=== PATIENT | female | born 1935 | race Caucasian/White ===

== ENCOUNTER → 2023-05-25 10:28 | Outpatient (REF) | payer MEDICARE, BC, SELFPAY ==
[2023-05-25 11:53] LABS: % Basophils 0.9 % (0-2); % Eosinophils 0.5 % (0-6); % Immature Granulocytes 0.4 % (0-0.5); % Lymphocytes 9.1 % (20.5-51.1); % Monocytes 13.3 % (1.7-9.3); % Neutrophils 75.8 % (42.2-75.2); Absolute Basophils 0.1 10^3/uL (0-0.2); Absolute Eosinophils 0.1 10^3/uL (0-0.7); Absolute Lymphocytes 0.9 10^3/uL (1.2-3.4); Absolute Monocytes 1.4 10^3/uL (0.1-0.6); Absolute Neutrophils 7.9 10^3/uL (1.4-6.5); Hematocrit 29.2 % (37.0-47.0); Hemoglobin 9.8 g/dL (12.0-16.0); Mean Corp Hgb Conc. 33.6 g/dL (33.0-37.0); Mean Corpuscular Hgb 29.6 pg (27.0-31.0); Mean Corpuscular Volume 88.2 fL (81.0-99.0); Mean Platelet Volume 9.7 fL (7.4-10.4); Nucleated Red Blood Cells % 0 %; Platelet Count 564 10^3/uL (130-400); Red Blood Cell Count 3.31 10^6/uL (4.20-5.40); Red Cell Dist. Width 16.3 % (11.5-14.5); Reticulocyte Count 1.8 % (0.4-2.8); White Blood Cell Count 10.4 10^3/uL (4.8-10.8)
[2023-05-25 12:30] LABS: ALT (SGPT) 22 U/L (0-35); AST (SGOT) 36 U/L (14-36); Alkaline Phosphatase 146 U/L (38-126); Blood Urea Nitrogen 21 mg/dl (7-17); Calcium 9.3 mg/dl (8.4-10.2); Carbon Dioxide 30 mmol/L (22-30); Chloride 95 mmol/L (98-107); Glucose 76 mg/dl (70-99); Iron 30 ug/dl (37-170); Potassium 5.1 mmol/L (3.5-5.1); Sodium 131 mmol/L (135-145); Total Bilirubin 0.3 mg/dl (0.2-1.3); Total Protein 7.5 g/dl (6.3-8.2); eGFR > 60.00
[2023-05-25 12:39] LABS: Percent Saturation 12 % (20-50); Total Iron Binding Capacity 232 ug/dl (265-497)
[2023-05-27 21:56] LABS: Albumin 2.36 g/dL (3.75-5.01); Alpha 2 Globulin 1.21 g/dL (0.48-1.05); Free Kappa Light Chains,Quant 118.74 mg/L (3.30-19.40); Free Lambda Light Chains,Quant 104.11 mg/L (5.71-26.30); IgA 902 mg/dL (68-408); IgG 1939 mg/dL (768-1632); IgM 83 mg/dL (35-263); Immunofixation Electrophoresis IFE Done; Kappa/Lambda Fr Light Ratio 1.14 (0.26-1.65); Total Protein-Electrophoresis 7.6 g/dL (6.3-8.2)
== END ==
LOC: HWLAB 10:28
PROVIDERS: ATTENDING PHYSICIAN Internal Medicine Hematology & Oncology; FAMILY PHYSICIAN Internal Medicine
DX: D63.8 Anemia in other chronic diseases classified elsewhere (principal); D64.9 Anemia, unspecified; Z87.718 Personal history of other specified (corrected) congenital malformations of genitourinary system; D47.2 Monoclonal gammopathy
CPT/HCPCS: 36415; 80053; 82728; 82784; 83521; 83540; 83550; 84155; 84165; 85025; 85045; 86334

== ENCOUNTER → 2023-06-05 11:47 | Outpatient (REF) | payer MEDICARE, BC, SELFPAY | LOC: HWRAD 11:47 | PROVIDERS: ATTENDING PHYSICIAN Internal Medicine Critical Care Medicine; FAMILY PHYSICIAN Internal Medicine | DX: R93.89 Abnormal findings on diagnostic imaging of other specified body structures (principal) | CPT/HCPCS: 71046 ==

== ENCOUNTER → 2023-06-12 11:32 | Outpatient (REF) | payer MEDICARE, BC, SELFPAY ==
[2023-06-12 16:04] LABS: % Basophils 0.9 % (0-2); % Eosinophils 0.3 % (0-6); % Immature Granulocytes 0.2 % (0-0.5); % Lymphocytes 11.4 % (20.5-51.1); % Monocytes 11.6 % (1.7-9.3); % Neutrophils 75.6 % (42.2-75.2); Absolute Basophils 0.1 10^3/uL (0-0.2); Absolute Neutrophils 6.7 10^3/uL (1.4-6.5); Hematocrit 29.4 % (37.0-47.0); Hemoglobin 9.5 g/dL (12.0-16.0); Mean Corp Hgb Conc. 32.3 g/dL (33.0-37.0); Mean Corpuscular Hgb 29.4 pg (27.0-31.0); Mean Platelet Volume 9.7 fL (7.4-10.4); Nucleated Red Blood Cells % 0 %; Platelet Count 330 10^3/uL (130-400); Red Blood Cell Count 3.23 10^6/uL (4.20-5.40); Red Cell Dist. Width 15.9 % (11.5-14.5); White Blood Cell Count 8.9 10^3/uL (4.8-10.8)
== END ==
LOC: HWLAB 11:32
PROVIDERS: ATTENDING PHYSICIAN Internal Medicine
DX: Z01.818 Encounter for other preprocedural examination (principal); D64.9 Anemia, unspecified
CPT/HCPCS: 36415; 85025

== ENCOUNTER 2023-06-24 17:42 | Inpatient (IN) | payer MEDICARE, BC, SELFPAY ==
[2023-06-24 13:30] VITALS: BP 150/62
[2023-06-24 13:51] LABS: % Basophils 0.8 % (0-2); % Eosinophils 0.7 % (0-6); % Immature Granulocytes 0.3 % (0-0.5); % Lymphocytes 14.7 % (20.5-51.1); % Monocytes 10.1 % (1.7-9.3); % Neutrophils 73.4 % (42.2-75.2); Absolute Basophils 0.1 10^3/uL (0-0.2); Absolute Eosinophils 0.1 10^3/uL (0-0.7); Absolute Lymphocytes 1.5 10^3/uL (1.2-3.4); Absolute Neutrophils 7.4 10^3/uL (1.4-6.5); Hematocrit 29.7 % (37.0-47.0); Hemoglobin 10.3 g/dL (12.0-16.0); Mean Corp Hgb Conc. 34.7 g/dL (33.0-37.0); Mean Corpuscular Hgb 29.9 pg (27.0-31.0); Mean Corpuscular Volume 86.1 fL (81.0-99.0); Mean Platelet Volume 9.9 fL (7.4-10.4); Nucleated Red Blood Cells % 0 %; Platelet Count 293 10^3/uL (130-400); Red Blood Cell Count 3.45 10^6/uL (4.20-5.40); Red Cell Dist. Width 15.4 % (11.5-14.5); White Blood Cell Count 10.1 10^3/uL (4.8-10.8)
[2023-06-24 14:03] LABS: ALT (SGPT) 23 U/L (0-35); AST (SGOT) 31 U/L (14-36); Alkaline Phosphatase 174 U/L (38-126); Blood Urea Nitrogen 37 mg/dl (7-17); Calcium 9.7 mg/dl (8.4-10.2); Carbon Dioxide 32 mmol/L (22-30); Chloride 96 mmol/L (98-107); Glucose 81 mg/dl (70-99); Potassium 4.6 mmol/L (3.5-5.1); Sodium 130 mmol/L (135-145); Total Bilirubin 0.3 mg/dl (0.2-1.3); eGFR 54.53
--- NOTE | 2023-06-24 14:27 | ED.GENMED ---
History of Present Illness
General
Chief Complaint: Breathing Problem
Time Seen by Provider: 06/24/23 14:27
Travel History
Have you had any contact with someone who has COVID-19?: No
Do you have any symptoms of coronavirus? Fever > 100 degrees, chills, cough, shortness of breath, sore throat, loss of taste or smell, muscle aches, or headache?: No
History of Present Illness
History of Present Illness:
HPI: The patient felt lightheaded earlier. She recently finished doxycycline for suspected pneumonia ordered by her poker dealer. She had some vague shortness of breath and a general worsening feeling compared to how she felt when she was seen by
her poker dealer with the abnormal x-ray earlier in the month. Overall she has worsened.
EXAM:
GENERAL: Well appearing in no distress
HEENT: Moist oral mucosa
CARDIOVASCULAR: No murmurs, normal heart rate, regular rhythm, No chest wall tenderness
PULMONARY: No respiratory distress, breath sounds are clear on the right but decreased on the left
ABDOMEN: Soft with no peritoneal signs, no tenderness
NEUROLOGIC: Excellent strength all extremities, no coordination deficits
PSYCHIATRIC: Appropriate mental status, normal insight and judgement
EXTREMITIES: Nontender, no edema, moves all extremities equally
SKIN: No rash, no lesions
TIME OF INITIAL ENCOUNTER:
NUMBER AND COMPLEXITY OF PROBLEMS ADDRESSED AT THE ENCOUNTER
� Chronic conditions affecting care: Chronic bronchitis, PE in the 1960s, high blood pressure, has had pneumothorax in 2021, anxiety
� Acute Exacerbation and/or Progression of Chronic Illness: Chronic left upper lobe atelectasis
� Differential Diagnosis includes: Ongoing atelectasis, pneumonia, viral syndrome
AMOUNT AND/OR COMPLEXITY OF DATA TO BE REVIEWED AND ANALYZED
� I performed an independent evaluation of and my interpretation is:
EKG:
CT:
X-rays: Chest x-ray again shows left sided opacification
Laboratory Studies: White count is normal, chemistries relatively unremarkable
Other:
� Review of other/old records: I reviewed old records including old CT
� Clinical information was obtained by an independent historian:
� Prescriptions/Medications Considered but not given:
� Further testing considered but not performed:
RISK OF COMPLICATIONS AND/OR MORBIDITY OR MORTALITY OF PATIENT MANAGEMENT
� Social determinants of health affecting care:
� Discussion with other providers: Notify Dr. Abraham of the patient's workup at 4:27 PM�he recommends admission for IV antibiotics and likely repeat bronc. Hospitalist for admission at 4:35 PM
� Escalation of care including admission/observation vs risk of discharge considered: The patient's room air sat is 98%. She is well-appearing. I notified Dr. Abraham of the patient's unchanged chest x-ray.
Past History
Past History
ED Past Medical History: HTN, Psychiatric (Anxiety, ), Other (Bronchitis, :Left upper Pneumothorax, Diverticulitis, ) and Other (Chronic sinusitis, chronic cough, lung disease)
ED Past Surgical History: Cholecystectomy, ( X 2), Gynecological and Other (Dental implants, Cataracts, Myringotomy tubes)
Social History
Tobacco: Non-smoker
Alcohol: Occasional
Drug: None
Personal:
Living: alone
Employment: Not employed
Family History
Family History: Other
Phy Exam
Physical Exam
Physical Exam:
See HPI
Scores
Heart Failure Risk
Heart Failure Risk Score: Not Applicable
Course
Orders/Labs/Results
Orders:
Orders
06/24/23 13:40
CMP [Comprehensive Metabolic Panel] Urgent
06/24/23 13:48
Complete Blood Count/With Diff Urgent
06/24/23 14:28
CR Chest - 2 Views Urgent
Comment:
Reason For Exam: sob
06/24/23 16:36
Cefepime HCl [Maxipime] 1,000 mg IV NOW STA
06/24/23 18:00
VANCOMYCIN Pharmacy to Dose [VANCOCIN Pharmacy to Dose] 1 each Pharmacy To Prepare [Call Pharmacy To Prepare] 0 ml IV PER PROTOCOL
Abnormal Lab Results
06/24/23 06/24/23
13:40 13:48
RBC 3.45 L 10^6/uL
(4.20-5.40)
Hgb 10.3 L g/dL
(12.0-16.0)
Hct 29.7 L %
(37.0-47.0)
RDW 15.4 H %
(11.5-14.5)
Absolute Neuts (auto) 7.4 H 10^3/uL
(1.4-6.5)
Absolute Monos (auto) 1.0 H 10^3/uL
(0.1-0.6)
Lymphocytes % 14.7 L %
(20.5-51.1)
Monocytes % 10.1 H %
(1.7-9.3)
Sodium 130 L mmol/L
(135-145)
Chloride 96 L mmol/L
(98-107)
Carbon Dioxide 32 H mmol/L
(22-30)
BUN 37 H mg/dl
(7-17)
Alkaline Phosphatase 174 H U/L
(38-126)
Albumin 3.0 L g/dl
(3.5-5.0)
06/24/23 13:48
06/24/23 13:40
Vital Signs
Initial and Last Documented VS:
Initial Vital Signs
Temp Pulse Resp BP Pulse Ox
98.2 F 62 18 150/62 98
06/24/23 13:30 06/24/23 13:30 06/24/23 13:30 06/24/23 13:30 06/24/23 13:30
Last Documented Vital Signs
Temp Pulse Resp BP Pulse Ox
98.2 F 60 18 143/62 98
06/24/23 13:30 06/24/23 15:00 06/24/23 15:00 06/24/23 15:00 06/24/23 15:15
*Critical Care Note
Total Time (30-74mins, 75-104mins- exclusive of procedures): Not Applicable
ED Attending Note
-
Portions of this chart may have been created with voice recognition software.� Occasional wrong word or��sound alike� substitutions may have occurred due to the inherent limitations of voice recognition software.
Discharge Plan
Departure
Patient Disposition: Admit
Date of Disposition: 06/24/23
Time of Disposition: 16:36
Presentation/result/management discussed w/ accepting MD/DO: Hospitalist
Discharge Problem:
Pneumonia
Prescriptions:
No Action
nadolol 40 MG tablet
40 mg PO DAILY
losartan 50 MG tablet
50 mg PO BID
hydralazine 10 MG tablet
20 mg PO BID
PreserVision AREDS-2 250-90-40-1 mg Capsule
1 tab PO BID
ascorbic acid (vitamin C) [Vitamin C] 500 MG tablet
500 mg PO DAILY
paroxetine HCl [Paxil] 20 mg Tablet
20 mg PO DAILY@1300
ipratropium-albuterol 0.5 mg-3 mg(2.5 mg base)/3 mL Solution For Nebulization
3 ml INHALATION R BID
sodium chloride 3 % solution for nebulization
2 ml INHALATION R BID
acetaminophen 325 mg Tablet
650 mg PO Q6H PRN (Reason: mild pain/temp<100)
magnesium hydroxide [Milk of Magnesia] 400 mg/5 mL Suspension
30 ml PO HS PRN (Reason: if no bm x 2 days)
calcium carbonate [Oyster Shell Calcium] 500 mg calcium (1,250 mg) Tablet
500 mg PO DAILY
carboxymethylcellulose sodium [Refresh Tears] 0.5 % Drops
1 drp BOTH EYES QID
bisacodyl [Dulcolax (bisacodyl)] 10 mg Suppository
10 mg [place] DAILY PRN (Reason: if no bm x 3 days)
Fleet Enema 19-7 gram/118 mL Enema
118 ml [place] DAILY PRN (Reason: if no bm x 4 days)
sodium chloride [NebuSal] 3 % Solution For Nebulization
1 vial inhalation R Q24 Qty: 0 0RF
budesonide 0.5 mg/2 mL Suspension For Nebulization
0.5 mg inhalation R BID Qty: 0 0RF
Referrals:
Dotty Astorga MD [Family Provider] -
Interventions
Interventions:
*Risk Screen - Suicide Last Done: 06/24/23 14:30
*General Assessment Last Done: 06/24/23 14:30
*Neglect/Abuse Screening Last Done: 06/24/23 14:30
ED- Fall Risk Assessment Last Done: 06/24/23 15:16
*ED COVID-19 Vaccine History Last Done: 06/24/23 13:30
ED- Pulmonary Assessment Last Done: 06/24/23 15:15
Discharge Date and Time
Print Language: ITALIAN
[2023-06-24 14:28] VITALS: BP 137/63
[2023-06-24 15:00] VITALS: BP 143/62
--- NOTE | 2023-06-24 16:54 | HPS.HSE ---
Family Physician
-
Family Physician: Dotty Astorga
Chief Complaint
-
Shortness of breath, generalized weakness, lightheadedness
History of Present Illness
88-year-old female complaining of lightheadedness, shortness of breath and generalized weakness. She follows with outpatient pulmonology Dr. Mackay She was placed on oral doxycycline 06/11-06/21 for opacification of the left hemithorax. According
to pulmonary she has failed outpatient airway clearance after a subdural hematoma March 28, 2022. She is currently on a regular diet per her daughter. She has poor cough response. She uses a smart vest on her chest for PT daily. She has a
chronic nonproductive cough. She denies headache, fever, chills, sore throat, chest pain, abdominal pain, nausea, vomiting, diarrhea, urinary symptoms. She has a coming eye surgery this week at [facility] for cryotherapy and map biopsy for concern
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 She has chronic right eyelid droop with chronic impaired vision since January 2023.
She has PMH moderate obstructive lung disease, left upper lobe atelectasis, mild, pulmonary HTN,, HTN, sepsis secondary pneumonia, MSSA per bronchoscopy 05/23/2021 subdural hematoma March 29, 2023, falls, anxiety, diverticulitis, thyroid mass.
Medical History
Past Medical History
Past Medical History: Reports Other
Additional Past Medical History:
moderate obstructive lung disease
left upper lobe atelectasis
mild pulmonary HTN
Chronic right eyelid droop with vision impairment since January 2023
HTN
sepsis secondary pneumonia
MSSA per bronchoscopy 05/23/2021
subdural hematoma March 29, 2023
falls
anxiety
diverticulitis
thyroid mass.
Past Surgical History: Reports Other
Additional Past Surgical History:
MSSA per bronchoscopy 05/23/2021
Cholecystectomy
section x 2
Dental implants
Cataract extraction
Myringotomy tube
Social History
Tobacco: Non-smoker
Alcohol: None
Drug: None
Personal:
Living: Alone
Employment: Retired
Family History
Family History: Other (Mother ruptured thoracic aneurysm, father colon cancer/history COPD)
Allergies / Home Medications
Allergies reflects when Allergies were last updated in [employer].
Home Medications with original date entered in [employer]
Allergy/Medication List:
Allergies
Allergy/AdvReac Type Severity Reaction Status Date / Time
codeine Allergy Unknown Verified 06/24/23 13:33
Penicillins Allergy Rash Verified 06/24/23 13:33
Home Medications
hydralazine 10 mg tablet 20 mg PO BID Blood pressure 05/23/21
losartan 50 mg tablet 50 mg PO BID Blood pressure 05/23/21
nadolol 40 mg tablet 40 mg PO DAILY Blood pressure 05/23/21
vit C 250 mg-vit E 90 mg-zinc 40 mg-copper 1 [id number] capsule (PreserVision AREDS-2) 1 tab PO BID Supplement 05/23/21
ipratropium 0.5 mg-albuterol 3 mg (2.5 mg base)/3 mL nebulization soln 3 ml inhalation R BID Lung/breathing issues 07/14/22
paroxetine HCl 20 mg tablet (Paxil) 20 mg PO DAILY@1300 Mental Health 07/14/22
carboxymethylcellulose sodium 0.5 % eye drops (Refresh Tears) 1 drp BOTH EYES QID 07/16/22
budesonide 0.5 mg/2 mL suspension for nebulization 0.5 mg (2 mL) inhalation R BID #0 mL 07/21/22
Budesonide 0.6 mg intranasal DAILY 06/24/23
furosemide 20 mg tablet 20 mg PO Q48H@0800 06/24/23
vancomycin 1 drp RIGHT EYE QID 06/24/23
vancomycin 160 mg intranasal DAILY 06/24/23
Review of Systems
-
History Source: Patient and Family (Daughter at bedside)
A 12 point ROS was completed and negative except as noted: Yes
Constitutional: Denies Fever or Fatigue
EENT: Denies Sore Throat or Runny Nose
Respiratory: Reports Cough (Chronic nonproductive cough) and Trouble Breathing (Chronic shortness of breath)
Cardiac: Denies Chest Pain, Diaphoresis, Palpitations or Syncope
Abdomen/GI: Denies Abdominal Pain, Nausea, Vomiting, Diarrhea or Constipated
: Denies Dysuria, Frequency, Flank Pain, Incontinence or Difficulty Voiding
Musculoskeletal: Denies Joint Pain or Edema
Skin: Denies Itching or Rash
Neurological: Reports Weakness (Generalized); Denies Dizzy or Headache
Endocrine: Reports No Symptoms
Hematologic/Lymphatic: Reports No Symptoms
Psych: Reports Calm
Physical Exam
Vital Signs
Vital Signs
Temp Pulse Resp BP Pulse Ox
98.2 F 60 18 143/62 98
06/24/23 13:30 06/24/23 15:00 06/24/23 15:00 06/24/23 15:00 06/24/23 15:15
Physical Exam
General: Comfortable and Conversant; No Fever, Chills or Slurred Speech
HEENT: NormoCephalic, Anicteric, PERRLA and Other (Chronic upper right eyelid ptosis with chronic vision impairment since January 2023)
Respiratory: Other (Left lung hyperresonant lung sounds); No Wheezes, Rales or Rhonchi
Cardiac: S1/S2 and Regular Rhythm; No Murmur, Rub, Gallop or Peripheral Edema
Breast: Deferred by me
GI: Soft, Non Tender, Non Distended, Normal Bowel Sounds and No Hepatosplenomegaly
Rectal: Deferred by Provider
Genito-urinary: Deferred by me
Musculoskeletal: No Clubbing, No Cyanosis and No Edema
Skin: Warm; No Rash or Jaundice
Neuro: AO x 3, No Motor Deficits, Nonfocal/grossly intact and Other (Chronic right upper eyelid droop); No Slurred Speech, Facial Droop or Tremors
Psych: Calm
Laboratory Results
-
06/24/23 13:48
06/24/23 13:40
Laboratory Results
Total Bilirubin 0.3 mg/dl (0.2-1.3) 06/24/23 13:40
AST 31 U/L (14-36) 06/24/23 13:40
ALT 23 U/L (0-35) 06/24/23 13:40
Alkaline Phosphatase 174 U/L (38-126) H 06/24/23 13:40
Impression/Plan
-
Impression/plan:
Admit to [facility]
#Acute on chronic left-sided PNA with generalized weakness
#Chronic moderate obstructive lung disease/chronic left upper lobe atelectasis
#Hx MSSA bronch 05/29/2021
Started doxycycline 06/05/2023
98% RA
-Consult Pulmonary
-IV vancomycin, cefepime
-Possible bronchoscopy per pulmonary
-Continue albuterol nebs twice daily, budesonide nebs
-Continue patient's smart vest chest PT
-Follow CBC, CMP
CXR: Stable complete left hemithorax opacification with volume loss and leftward mediastinal shift
#Chronic mild pulmonary HTN
#Chronic stage II diastolic dysfunction
-I/O, daily weights
Follows at [facility] cardiology
-Continue Lasix 20 mg p.o. every 48 H
2D echo 03/07/2021: EF 60 to 65%, mild LVH, no wall abnormalities, stage II diastolic dysfunction, moderate MR, trace aortic insufficiency, moderate TR, pulm pressure 41 mmHg
#HTN�benign
-Continue hydralazine 20 mg p.o. twice daily, losartan 50 mg p.o. twice daily, nadolol 40 mg daily
# Chronic hyponatremia
NA 130, follow BMP
#Chronic anemia normocytic
Hgb 10.3 appears baseline
#History falls
#Subdural hematoma March 29, 2023
-PT/OT/case management consult
#Anxiety
Continue Paxil 20 mg daily
Other PMH:
Hx sepsis secondary to pneumonia
Hx diverticulitis
Hx thyroid mass
DVT prophylaxis
Subcu Lovenox
DNR
[2023-06-24 18:04] VITALS: BP 134/63
[2023-06-24] MEDS: MAXIPIME 1000 MG IV (18:09)
[2023-06-24 19:37] VITALS: BP 160/70; BMI 22.3
[2023-06-24] MEDS: VANCOCIN 300 ML IV (20:20)
[2023-06-24] MEDS: VANCOCIN 300 MG IV (20:20)
[2023-06-24] MEDS: DUONEB 3 ML INH (20:21)
[2023-06-24] MEDS: PULMICORT 0.5 MG INH (20:21)
[2023-06-24] MEDS: APRESOLINE 20 MG PO (20:23)
[2023-06-24] MEDS: COZAAR 50 MG PO (20:24)
[2023-06-24] MEDS: OCUVITE SOFTGEL 1 CAP PO (20:24)
[2023-06-24] MEDS: LOVENOX SC (20:29)
--- NOTE | 2023-06-24 20:56 | PHA.VAN.IN ---
Assessment
- Assessment
Renal Function: Appears elevated from baseline (BASELINE SCR ~0.8)
Concomitant Antimicrobials: CEFEPIME
Plan
- Plan
Initial / Loading Dose: VANCO 1500MG X1
Monitoring: RANDOM 06/24 @0600
MRSA Screen: Ordered per protocol
Pharmacokinetics Vancomycin I
- -
Patient Age: 88
Patient Sex: Female
Vancomycin Day #: 1
Indication: PULM
Requesting Provider: ISAIAH MARTIN
Pertinent Antimicrobial Allergies:
PENICILLIN (RASH, TOLERATED CEFTRIAXONE 07/2022, CEFEPIME 06/2023
Height / Weight:
Height 5 ft 4 in
Actual Weight 58.967 kg
Pertinent Past Medical History: COPD, PULM HTN
- Vital Signs / Lab Results
Temp Pulse Resp BP Pulse Ox
97.4 F 70 18 140/60 93
06/24/23 19:37 06/24/23 20:23 06/24/23 19:37 06/24/23 20:23 06/24/23 19:37
Lab Results - Hematology
06/24/23
13:48
WBC 10.1
Lab Results - Chemistry
06/24/23
13:40
BUN 37 H
Creatinine 1.0
Albumin 3.0 L
[2023-06-24] MEDS: SODIUM CHLORIDE 3% FOR INHALATION 1 VIAL INH (21:00)
[2023-06-24] MEDS: LOVENOX 40 MG SC (21:05)
--- NOTE | 2023-06-24 22:38 | W.PN.UPDATE ---
Update Note
Progress Note Update
This note serves as an addendum to the H&P by MAKI Harris on June 24, 2023.
88-year-old female with past medical history of she has chronic right eyelid droop with chronic impaired vision since January 2023, moderate obstructive lung disease, left upper lobe atelectasis (follows outpatient with Dr. Abraham), mild,
pulmonary HTN, HTN, sepsis secondary pneumonia, MSSA per bronchoscopy 05/23/2021 subdural hematoma March 29, 2023, falls, anxiety, diverticulitis, thyroid mass, presented complaining of lightheadedness, shortness of breath and generalized weakness.
She was placed on oral doxycycline 06/12/23-06/22/23 for opacification of the left hemithorax. According to pulmonary, patient has failed outpatient airway clearance after a subdural hematoma March 28, 2022. She is currently on a regular diet per
her daughter. She has poor cough response. She uses a smart vest on her chest for PT daily. She has a chronic nonproductive cough. She has a coming eye surgery this week at [facility] eye for cryotherapy and map biopsy for concern of squamous cell in
her right eye.
Vital Signs -- stable, saturating well on room air
Physical Exam
General: Not in acute distress
HEENT: Normocephalic, Chronic upper right eyelid ptosis with chronic vision impairment since January 2023
Respiratory: Decreased breath sounds on the left
Cardiac: S1/S2 and Regular Rhythm
GI: Soft, Non Tender, Non Distended, Normal Bowel Sounds
Musculoskeletal: No Cyanosis and No Edema
Skin: Warm. Dry.
Neuro: AAO x 3
Psych: Calm
Assessment/Plan
#Concern for acute on chronic left-sided PNA with generalized weakness
#Chronic moderate obstructive lung disease/chronic left upper lobe atelectasis
#History of MSSA status post bronchoscopy
-Consulted Pulmonary, recommendations appreciated -- known well to Dr. Abraham
-IV vancomycin, cefepime
-Possible bronchoscopy per pulmonary
-Continue albuterol nebs twice daily, budesonide nebs
-Continue patient's smart vest chest PT
-Follow CBC, CMP
-Patient has a weak cough, if not improving with antibiotics, may have to consider hospice as per pulmonary
#Chronic mild pulmonary HTN
#Chronic stage II diastolic dysfunction
-I/O, daily weights
-Follows at [facility] cardiology
-Continue Lasix 20 mg p.o. every 48 H
#HTN�benign
-Continue hydralazine 20 mg p.o. twice daily, losartan 50 mg p.o. twice daily, nadolol 40 mg daily
# Chronic hyponatremia
-NA 130, follow BMP
-Check urine osm, serum osm and urine sodium
#Chronic anemia normocytic
Hgb 10.3 appears baseline
#History falls
#Subdural hematoma March 29, 2023
-PT/OT/case management consult
#Anxiety
Continue Paxil 20 mg daily
Other PMH:
Hx sepsis secondary to pneumonia
Hx diverticulitis
Hx thyroid mass
DVT prophylaxis
Subcu Lovenox
DNR
[2023-06-24 23:07] VITALS: BP 101/49
[2023-06-25] VITALS (7 sets, daily range): BP systolic 91–140; BP diastolic 42–80; PULSE 83–88; O2SAT 92; BMI 22.3
[2023-06-25] MEDS: STERILE WATER FOR INJECTION 10 ML IV ×3 (02:24→17:29)
[2023-06-25] MEDS: MAXIPIME 1000 MG IV ×3 (02:24→17:29)
[2023-06-25 05:24] LABS: % Eosinophils 0.7 % (0-6); % Immature Granulocytes 0.5 % (0-0.5); % Lymphocytes 8.5 % (20.5-51.1); % Monocytes 6.4 % (1.7-9.3); % Neutrophils 82.9 % (42.2-75.2); Absolute Basophils 0.1 10^3/uL (0-0.2); Absolute Eosinophils 0.1 10^3/uL (0-0.7); Absolute Lymphocytes 0.8 10^3/uL (1.2-3.4); Absolute Monocytes 0.6 10^3/uL (0.1-0.6); Absolute Neutrophils 7.4 10^3/uL (1.4-6.5); Hematocrit 26.8 % (37.0-47.0); Hemoglobin 9.1 g/dL (12.0-16.0); Mean Corpuscular Hgb 29.4 pg (27.0-31.0); Mean Corpuscular Volume 86.7 fL (81.0-99.0); Mean Platelet Volume 10.3 fL (7.4-10.4); Nucleated Red Blood Cells % 0 %; Platelet Count 264 10^3/uL (130-400); Red Blood Cell Count 3.09 10^6/uL (4.20-5.40); Red Cell Dist. Width 15.1 % (11.5-14.5); White Blood Cell Count 8.9 10^3/uL (4.8-10.8)
[2023-06-25 06:02] LABS: Blood Urea Nitrogen 33 mg/dl (7-17); Calcium 9.1 mg/dl (8.4-10.2); Carbon Dioxide 27 mmol/L (22-30); Chloride 100 mmol/L (98-107); Estimated Creatinine Clearance 38 ml/min; Glucose 66 mg/dl (70-99); Potassium 4.6 mmol/L (3.5-5.1); Sodium 131 mmol/L (135-145); eGFR > 60.00
[2023-06-25 06:06] LABS: Vancomycin Random 18.4 ug/ml
[2023-06-25] MEDS: DUONEB 3 ML INH ×2 (07:51→19:39)
[2023-06-25] MEDS: SODIUM CHLORIDE 3% FOR INHALATION 1 VIAL INH ×2 (07:51→19:38)
[2023-06-25] MEDS: PULMICORT 0.5 MG INH ×2 (07:52→19:38)
--- NOTE | 2023-06-25 09:25 | W.PN.HOSP.TC ---
Today's Communication/Plan
-
PT/OT
Urine studies
Pulmonary consult
Assessment / Plan
Assessment / Plan
Gen-AAOx3, NAD
HEENT-NC, AT, anicteric, clear oral mm
Neck-supple
CV-reg, no M, +S1/S2
Lungs-decreased breath sounds on left side
Abd-soft, NT, ND
Ext-no edema
Musculoskeletal-no cyanosis, clubbing
Skin-warm and dry
Neuro-grossly non-focal
Psych-calm, cooperative
Acute hypoxic respiratory insufficiency -due to chronic left sided atelectasis. Chronic complete opacification of left hemithorax. No clinical signs or symptoms of infection. Currently on empiric antibiotics. Not requiring supplemental oxygen.
Not on oxygen at home.
Chronic left hemithorax atelectasis -unclear etiology. History of bronchoscopy in the past. Await pulmonary input.
Hyponatremia -suspect chronic. Sodium 131. Check urine studies, TSH, cortisol.
COPD without acute exacerbation
Chronic pulmonary hypertension
Chronic normocytic anemia -hemoglobin at baseline. Unclear etiology.
Essential hypertension
Thyroid mass
Chronic right eyelid droop
Chronic subdural hematoma
Diverticulosis
Anxiety disorder
DNR
Anticipated Discharge: > 48 hours
Subjective/Interval History
-
Date of Service: June 25, 2023
Patient seen and examined. About to get PT. Complaining of lightheadedness, mild cough. Currently denies shortness of breath.
Objective Data
-
Labs:
Laboratory Results
06/25/23
05:11
WBC 8.9
Hgb 9.1 L
Hct 26.8 L
Plt Count 264
Sodium 131 L
Potassium 4.6
Chloride 100
Carbon Dioxide 27
BUN 33 H
Creatinine 0.9
Glucose 66 L
Calcium 9.1
Vital Signs:
Vital Signs
Temp Pulse Resp BP Pulse Ox
98.1 F 81 18 120/57 95
06/25/23 07:35 06/25/23 07:54 06/25/23 07:54 06/25/23 07:35 06/25/23 07:54
I&O
06/24/23 06/25/23 06/26/23
06:59 06:59 06:59
Intake Total 120 / 120
Balance 120 / 120
Review of Systems
-
History Source: Patient
All other systems: Reviewed and negative
--- NOTE | 2023-06-25 09:50 | CON.PUL ---
Consultation
Consultation Request
Date/Time Consultation Requested: 06/24/2023 - 172
Date/Time Consultation Performed: 06/25/2023 - 954
Requesting Provider: MAKI Harris
Performing Provider: Dr. Loja
Reason for Consultation: left lung opacification
Medical History
-
Chief Complaint: Shortness of breath, generalized weakness
History of Present Illness:
88-year-old female with a past medical history of COPD, chronic rhinitis, restrictive lung disease, history of staphylococcal pneumonia (left), and subdural hematoma (March 2023) s/p fall who presents with lightheadedness and reports of low SpO2
at home. 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 Patient afebrile to 98.2 �F, heart rate 62, RR: 18, BP: 150/62, SpO2 90% on room air. Labs showed normal WBC at 10.1, Hb 10.3, sNa: 130, sCl: 96, glucose 81, ALP
174, albumin 3, and a CXR on 06/24/2023 shows almost complete opacification of the left hemithorax. Of note, her left upper lobe on her CT C�spine from 03/29/2023 shows ISA apical�anterior atelectasis. Patient was admitted to the hospitalist service
with DuoNebs, broad-spectrum antibiotics with cefepime/vancomycin, nebulized 3% NS, and nasal budesonide 0.6 mg daily. Pulmonary now consulted for additional management/recommendations.
When I saw the patient, patient's sister as well as patient's daughter were at bedside. All questions were answered. She says that she developed lightheadedness and shortness of breath prior to arrival and was in her usual state of health prior to
that. She says that her cough has been worsening over the last few days. She is currently on room air, saturating 97%. Hemodynamically stable. Afebrile. She denies chest pain, headache, abdominal pain, diarrhea, fevers or chills. She denies
any recent sick contacts or recent travel.
Patient follows with us in the office with Dr. Abraham (last office visit on 06/12/2023), and due to chronic left lung opacification from chronic PNA with poor secretion expectoration, patient was started on doxy given worsening consolidation on
recent CXR from 06/05/2023. She is also prescribed nebulized 3% saline, DuoNebs and budesonide in addition to vest therapy. Her last spirometry from December 2021 shows a moderate obstructive lung defect with post-BD FEV1 of 61% with a significant
bronchodilator response (involving FVC). Patient prefers to remain conservative in regards to her chronic left-sided pneumonia and understands that she is at high risk for respiratory failure with progressive pneumonia.
PMHx: Moderate COPD (via spirometry from 12/2021), chronic left-sided pneumonia, hypertension, IBS, history of basal cell carcinoma s/p Mohs surgery (2007), nasal surgery, bullous pemphigoid, hyperlipidemia
PSHx: section, cholecystectomy, cataract surgery, Mohs surgery, right myringotomy (March 2018), bronchoscopy (05/2021)
Past Medical History
Past Medical History: Other (Above as per HPI)
Past Surgical History: Other (Above as per HPI)
Social History
Tobacco: Non-smoker
Alcohol: None
Drug: None
Personal:
Living: Alone
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
Family History
Family History: Cancer (Father: Colon cancer) and Other (Lumbar: Thoracic aneurysm that ruptured; Father: COPD)
Allergies / Home Medications
Allergies
Allergy/AdvReac Type Severity Reaction Status Date / Time
codeine Allergy Unknown Verified 06/24/23 13:33
Penicillins Allergy Rash Verified 06/24/23 13:33
Home Medications
�Medication �Instructions �Recorded �Confirmed �Last Taken �Type
hydralazine 10 mg tablet 20 mg PO BID Blood pressure 05/23/21 06/24/23 06/24/23 History
losartan 50 mg tablet 50 mg PO BID Blood pressure 05/23/21 06/24/23 06/24/23 History
nadolol 40 mg tablet 40 mg PO DAILY Blood pressure 05/23/21 06/24/23 06/24/23 History
vit C 250 mg-vit E 90 mg-zinc 40 1 tab PO BID Supplement 05/23/21 06/24/23 06/24/23 History
mg-copper 1 [id number]
capsule (PreserVision AREDS-2)
ipratropium 0.5 mg-albuterol 3 mg 3 ml inhalation R BID 07/14/22 06/24/23 06/23/23 History
(2.5 mg base)/3 mL nebulization Lung/breathing issues
soln
paroxetine HCl 20 mg tablet (Paxil) [address] [facility] 07/14/22 06/24/23 06/23/23 History
carboxymethylcellulose sodium 0.5 2 drp LEFT EYE BIDPRN PRN dry eyes 07/16/22 06/24/23 1 Week Ago History
% eye drops (Refresh Tears) ~06/17/23
budesonide 0.5 mg/2 mL suspension 0.5 mg (2 mL) inhalation R BID #0 07/21/22 06/24/23 06/23/23 Rx
for nebulization mL
Budesonide 0.6 mg intranasal DAILY 06/24/23 06/24/23 06/23/23 History
furosemide 20 mg tablet 20 mg PO Q48H@0800 06/24/23 06/24/23 06/23/23 History
vancomycin 1 drp RIGHT EYE QID 06/24/23 06/24/23 06/24/23 History
vancomycin 160 mg intranasal DAILY 06/24/23 06/24/23 06/23/23 History
Review of Systems
-
History Source: Patient
All other systems: Negative unless noted
Vitals / Labs / Diagnostic Testing
Vital Signs
Temp Pulse Resp BP Pulse Ox
98.1 F 81 18 95/45 92
06/25/23 07:35 06/25/23 07:54 06/25/23 07:54 06/25/23 09:58 06/25/23 08:30
Lab Data
06/25/23 05:11
06/25/23 05:11
Microbiology
06/24/23 20:36 Nose Nasal Screen MRSA (PCR) - Final
Staph aureus MRSA
Diagnostic Testing:
Physical Exam
-
HEENT: Normocephalic and Anicteric
Cardiovascular: S1/S2 and Peripheral Edema (Negative)
Respiratory: Wheeze (Negative), Rales (Negative), Rhonchi (Negative) and Other (Reduced breath sounds at the left hemithorax)
GI: Soft, Non Distended and Non Tender
Neurology: Awake and Alert
Skin: Warm and Dry
General: Comfortable and Chills (Negative)
Assessment
-
Assessment: 88-year-old female with a past medical history of COPD, chronic rhinitis, restrictive lung disease, history of staphylococcal pneumonia (left), and subdural hematoma (March 2023) s/p fall who presents with lightheadedness and reports
of low SpO2 at home. 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 Patient afebrile to 98.2 �F, heart rate 62, RR: 18, BP: 150/62, SpO2 90% on room air. Labs showed normal WBC at 10.1, Hb 10.3, sNa: 130, sCl: 96,
glucose 81, ALP 174, albumin 3, and a CXR on 06/24/2023 shows almost complete opacification of the left hemithorax. Of note, her left upper lobe on her CT C�spine from 03/29/2023 shows ISA apical�anterior atelectasis. Patient was admitted to the
hospitalist service with DuoNebs, broad-spectrum antibiotics with cefepime/vancomycin, nebulized 3% NS, and nasal budesonide 0.6 mg daily. Pulmonary now consulted for additional management/recommendations.
Chronic medical conditions [employer]: Moderate COPD (via spirometry from 12/2021), chronic left-sided pneumonia with Hx of MSSA (06/2021), hypertension, IBS, history of basal cell carcinoma s/p Mohs surgery (2007), nasal surgery, bullous pemphigoid,
hyperlipidemia
Impression:
#Chronic left hemithorax opacification likely due to mucous plugging via retained secretions with poor expectoration with chronic pneumonia
#Moderate COPD with acute exacerbation
#Positive MRSA screen via nares
#Hypoglycemia
#Chronic rhinitis
#Chronic anemia (baseline Hb 9.5 - 11)
#Chronic hyponatremia
Plan:
- Continue empiric broad spectrum ABx for now with MRSA coverage
- Aspiration precautions
- HOB>30-45�
- Mucolytics with nebulized 3% with DuoNebs; add mucinex
- Start steroids given her Hx of COPD with suspected exacerbation --> will start a prednisone taper
- Pt on schedule for Sunday for therapeutic/diagnostic bronchoscopy - risks and benefits were discussed at bedside with the pt and daughter, and they have agreed to procedure
- Check CT Chest to evaluate left lung airways better to help assist in bronchoscopy
- Last evaluated by REPRESENTATIVE PERSONAL SERVICE in July 2022 with no laryngeal penetration or aspiration observed with pur�ed or solid
- Maintain SpO2>88% with supplemental O2 as needed
- Maintain MAP>65
- PT/OT
- Replete K>3.5, Mg>1.8
- Maintain euglycemia with goal BG>100 and <180
- Trend serum Na with goal ~135 (she has been around 131-134 over last 4 months)
- DVT ppx
Pulmonary service will continue to follow along.
Total time spent today was 56 minutes for this encounter. Time includes reviewing laboratory test/imaging results, reviewing pertinent medical records, obtaining and reviewing medical history, performing an appropriate exam, ordering medications,
tests and procedures. Time also includes documentation of this encounter, coordinating patient care and communicating with other healthcare professionals. Total time does not include separately billed tests performed on this date of service.
Data:
CXR 06-24-2023: Stable exam with complete left hemithorax volume loss.
Outpatient [facility]MA data:
Spirometry �12-22-2021: FEV1/FVC: 61 --> 54 with BD; post-BD FEV1: 61% (1.02L); FVC: 68% --> 82% with BD; positive/significant bronchodilator response. Imp: Moderate obstructive lung defect.
[2023-06-25] MEDS: OCUVITE SOFTGEL 1 CAP PO ×2 (09:58→20:36)
[2023-06-25] MEDS: LASIX 20 MG PO (09:58)
[2023-06-25] MEDS: COZAAR PO (09:58)
[2023-06-25] MEDS: CORGARD 40 MG PO (09:58)
[2023-06-25] MEDS: APRESOLINE PO (09:58)
[2023-06-25] MEDS: DESENEX/MITRAZOL/ZEASORB 1 APPLIC TOPICAL ×2 (09:59→20:37)
--- NOTE | 2023-06-25 09:59 | PHA.VAN.FU ---
Vancomycin Assessment / Plan
- Assessment
Renal Function: Stable
WBC's are: WNL
In the past 24 hrs, patient has been: Afebrile
Concomitant Antimicrobials: cefepime
- Assessment - Therapeutic Drug Monitoring
Random Level: 18.4 - drawn ~9H after 1500mg loading dose
- Dosing Plan
Dosing by Level: Re-dose today (Vanc 750mg x1)
Dosing Comments: if level appropriate tomorrow, will consider scheduling dosing
- Monitoring Plan
Random Level: 06/25 0600
- Follow Up
Pharmacy will continue to follow.
Vancomycin Follow UP
- -
Patient Age: 88
Patient Sex: Female
Vancomycin Day #: 2
Indication: Pulmonary/Respiratory
Requesting Provider: Mathieu Wallace
Pertinent Antimicrobial Allergies:
penicillin - rash; tolerated ceftriaxone (07/2022), cefepime (06/2023)
Height / Weight:
Height 5 ft 4 in
Actual Weight 58.967 kg
Pertinent Past Medical History: COPD, PULM HTN
- Vital Signs / Lab Results
Temp Pulse Resp BP Pulse Ox
98.1 F 81 18 120/57 95
06/25/23 07:35 06/25/23 07:54 06/25/23 07:54 06/25/23 07:35 06/25/23 07:54
Lab Results - Hematology
06/24/23 06/25/23
13:48 05:11
WBC 10.1 8.9
Lab Results - Chemistry
06/24/23 06/25/23
13:40 05:11
BUN 37 H 33 H
Creatinine 1.0 0.9
Estimated Creat Clear 38
Albumin 3.0 L
Microbiology Results
06/24/23 20:36 Nasal Screen MRSA (PCR) - Final
Nose Staph aureus MRSA
Therapeutic Drug Monitoring
Random Vancomycin 18.4 ug/ml 06/25/23 05:11
[2023-06-25] MEDS: PAXIL 20 MG PO (11:46)
[2023-06-25] MEDS: VANCOCIN 150 IV (11:46)
[2023-06-25 11:47] LABS: Cortisol, Random 21.4 ug/dl; TSH 1.89 uIU/ml (0.47-4.68)
[2023-06-25 14:23] LABS: Osmolality Urine 390 mOsm/kg (300-900)
[2023-06-25 14:31] LABS: Urine Sodium 51 mmol/L (30-90)
--- NOTE | 2023-06-25 16:23 | CM ---
CM met with pt and dtr/Rosa bedside
Pt resides at [facility]
Pt is independent [facility] ambulation and personal care with use of a rolaltor
Pt has smart vest and nebulizer which she utilizes BID
Pt is current with [facility] PT/OT
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
PCP- Dotty Astorga
Rx- [facility]
CM will follow for dc planning
May need SNF and preferred SNF is [facility] [place]
Discharge Disposition- home with KYLAH Ahn, watch for higher needs
--- NOTE | 2023-06-25 16:56 | PTCARENOTE ---
Patient with positive MRSA nasal swab. Transferred to [id number] with all belongings and daughter.
[2023-06-25] MEDS: LOVENOX 40 MG SC (17:28)
[2023-06-25] MEDS: DELTASONE 60 MG PO (17:28)
[2023-06-25] MEDS: NON-FORMULARY ITEM 1 DROP RIGHT EYE ×2 (17:29→20:48)
[2023-06-25] MEDS: APRESOLINE 20 MG PO (20:36)
[2023-06-25] MEDS: MUCINEX 1200 MG PO (20:36)
[2023-06-25] MEDS: COZAAR 50 MG PO (20:36)
[2023-06-26] MEDS: STERILE WATER FOR INJECTION 10 ML IV ×3 (02:08→17:40)
[2023-06-26] MEDS: MAXIPIME 1000 MG IV ×3 (02:08→17:40)
[2023-06-26 06:00] VITALS: BMI 22.5
[2023-06-26 07:30] VITALS: BP 174/80
[2023-06-26] MEDS: PULMICORT INH (08:02)
[2023-06-26] MEDS: DUONEB INH (08:02)
[2023-06-26] MEDS: SODIUM CHLORIDE 3% FOR INHALATION INH (08:02)
[2023-06-26] MEDS: OCUVITE SOFTGEL PO ×2 (09:01→09:15)
[2023-06-26] MEDS: MUCINEX PO ×2 (09:01→09:15)
[2023-06-26] MEDS: APRESOLINE 20 MG PO ×2 (09:01→20:47)
[2023-06-26] MEDS: CORGARD 40 MG PO (09:01)
[2023-06-26] MEDS: DELTASONE 60 MG PO (09:02)
[2023-06-26] MEDS: COZAAR 50 MG PO (09:02)
[2023-06-26] MEDS: NON-FORMULARY ITEM 1 DROP RIGHT EYE ×4 (09:02→20:46)
[2023-06-26] MEDS: DESENEX/MITRAZOL/ZEASORB 1 APPLIC TOPICAL ×2 (09:03→20:47)
[2023-06-26 09:16] LABS: % Basophils 0.2 % (0-2); % Immature Granulocytes 0.4 % (0-0.5); % Lymphocytes 18.7 % (20.5-51.1); % Monocytes 3.2 % (1.7-9.3); % Neutrophils 77.5 % (42.2-75.2); Absolute Monocytes 0.2 10^3/uL (0.1-0.6); Absolute Neutrophils 4.2 10^3/uL (1.4-6.5); Hematocrit 27.5 % (37.0-47.0); Hemoglobin 9.3 g/dL (12.0-16.0); Mean Corp Hgb Conc. 33.8 g/dL (33.0-37.0); Mean Corpuscular Hgb 29.5 pg (27.0-31.0); Mean Corpuscular Volume 87.3 fL (81.0-99.0); Mean Platelet Volume 9.9 fL (7.4-10.4); Nucleated Red Blood Cells % 0 %; Platelet Count 295 10^3/uL (130-400); Red Blood Cell Count 3.15 10^6/uL (4.20-5.40); Red Cell Dist. Width 15.7 % (11.5-14.5); White Blood Cell Count 5.4 10^3/uL (4.8-10.8)
[2023-06-26 09:26] LABS: Vancomycin Random 15.7 ug/ml
[2023-06-26 09:36] LABS: Blood Urea Nitrogen 33 mg/dl (7-17); Calcium 9.7 mg/dl (8.4-10.2); Carbon Dioxide 29 mmol/L (22-30); Chloride 100 mmol/L (98-107); Estimated Creatinine Clearance 34 ml/min; Glucose 123 mg/dl (70-99); Potassium 5.6 mmol/L (3.5-5.1); Sodium 132 mmol/L (135-145); eGFR 54.53
--- NOTE | 2023-06-26 11:06 | W.PN.PUL3 ---
Today's Communication / Plan
-
Abx
NPO p MN for bronch tomorrow for washout and BAL
DuoNebs, 3%, mucinex and vest therapy
Aspiration precautions
Encourage IS
PT
Assessment
-
Assessment: 88-year-old female with a past medical history of COPD, chronic rhinitis, restrictive lung disease, history of staphylococcal pneumonia (left), and subdural hematoma (March 2023) s/p fall who presents with lightheadedness and reports
of low SpO2 at home. 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 Patient afebrile to 98.2 �F, heart rate 62, RR: 18, BP: 150/62, SpO2 90% on room air. Labs showed normal WBC at 10.1, Hb 10.3, sNa: 130, sCl: 96,
glucose 81, ALP 174, albumin 3, and a CXR on 06/24/2023 shows almost complete opacification of the left hemithorax. Of note, her left upper lobe on her CT C�spine from 03/29/2023 shows ISA apical�anterior atelectasis. Patient was admitted to the
hospitalist service with DuoNebs, broad-spectrum antibiotics with cefepime/vancomycin, nebulized 3% NS, and nasal budesonide 0.6 mg daily. Pulmonary now consulted for additional management/recommendations.
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
hyperlipidemia
Impression:
#Chronic left hemithorax opacification due to chronic pneumonia in setting of retained secretions with poor expectoration
#Moderate COPD with acute exacerbation
#Positive MRSA screen via nares
#Hypoglycemia
#Chronic rhinitis
#Chronic anemia (baseline Hb 9.5 - 11)
#Chronic hyponatremia
Plan:
- Continue empiric broad spectrum ABx (cefepime/IV vanco) - ABx started 06/24/2023 - would give 7-10 days assuming she continues to improve and remains afebrile for >48 hrs prior to stopping; given the chronic nature of her pneumonia she may need a
prolonged course of Abx
- Aspiration precautions
- HOB>30-45�
- Mucolytics with nebulized 3% with DuoNebs; continue mucinex
- Continue vest therapy
- Continue prednisone taper given her Hx of COPD with acute exacerbation
- Continue Pulmicort BID
- Pt on schedule for tomorrow at 1PM for therapeutic/diagnostic bronchoscopy - risks and benefits were discussed at bedside with the pt and daughter, and they have agreed to procedure
- Last evaluated by POLICY SERVICE COORDINATOR in July 2022 with no laryngeal penetration or aspiration observed with pur�ed or solid
- Maintain SpO2>88% with supplemental O2 as needed
- Maintain MAP>65
- PT/OT
- Replete K>3.5, Mg>1.8
- Maintain euglycemia with goal BG>100 and <180
- Trend serum Na with goal ~135 (she has been around 131-134 over last 4 months)
- DVT ppx
Pulmonary service will continue to follow along.
Total time spent today was 35 minutes for this encounter. Time includes reviewing laboratory test/imaging results, reviewing pertinent medical records, obtaining and reviewing medical history, performing an appropriate exam, ordering medications,
tests and procedures. Time also includes documentation of this encounter, coordinating patient care and communicating with other healthcare professionals. Total time does not include separately billed tests performed on this date of service.
Data:
CT Chest without contrast 06-26-2023:
1. Complete opacification of the left lung with significant volume loss most compatible with atelectasis. However, no CT evidence for left bronchial obstruction/mucous plugging. Air bronchograms noted throughout the opacified left lung.
2. Leftward mediastinal shift.
3. Multiple borderline enlarged prevascular mediastinal lymph nodes, similar compared to the chest CT from 09/01/2021.
4. Stable nodular enlargement of the left lobe of the thyroid gland.
CXR 06-24-2023: Stable exam with complete left hemithorax volume loss.
Outpatient BCMA data:
Spirometry �12-22-2021: FEV1/FVC: 61 --> 54 with BD; post-BD FEV1: 61% (1.02L); FVC: 68% --> 82% with BD; positive/significant bronchodilator response. Imp: Moderate obstructive lung defect.
Subjective Data
-
Date of Service:
Date of Service: June 26, 2023
Chief Complaint: Pulmonary Follow Up
Subjective:
Patient seen and evaluated today at bedside. She was moved to a isolation room given her positive MRSA screen. She is on room air breathing comfortably. Daughter at bedside. All questions were answered. Patient eager to work with physical
therapy. No acute events reported overnight. Currently denies chest pain, headache, diarrhea, fevers or chills.
Review of Systems
General: Other (Negative unless mentioned above)
Objective Data
Data Reviewed
Vital Signs / I&O / Oxygen:
Vital Signs
Temp Pulse Resp BP Pulse Ox
97.5 F 70 17 174/80 96
06/26/23 07:30 06/26/23 07:30 06/26/23 07:30 06/26/23 07:30 06/26/23 07:30
Intake and Output
06/25/23 06/26/23 06/27/23
06:59 06:59 06:59
Intake Total 120 / 120
Balance 120 / 120
SaO2 96
Physical Exam
General: Comfortable
HEENT: Normocephalic and Anicteric
Cardiovascular: S1-S2 and Peripheral Edema (negative)
Respiratory: Wheeze (negative), Crackles (left hemithorax (apical)), Rhonchi (negative) and Other (Reduced breath sounds at left lung base-middle lung field)
GI: Soft, Non Distended, Non Tender and Normal Bowel Sounds
Neurology: Awake and Alert
Skin: Warm and Dry
Labs/Micro/Reports
Lab Data
06/26/23 08:50
06/26/23 08:50
Microbiology
06/24/23 20:36 Nose Nasal Screen MRSA (PCR) - Final
Staph aureus MRSA
--- NOTE | 2023-06-26 11:16 | PHA.VAN.FU ---
Vancomycin Assessment / Plan
- Assessment
Renal Function: Stable
WBC's are: WNL
In the past 24 hrs, patient has been: Afebrile
Concomitant Antimicrobials: cefepime
- Assessment - Therapeutic Drug Monitoring
Random Level: 15.7 - drawn ~21H after previous dose of 750mg
- Dosing Plan
Dosing by Level: Re-dose today (Vanc 500mg)
Dosing Comments: will reduce dose slightly today and follow trend
- Monitoring Plan
Random Level: 06/26 0600
- Follow Up
Pharmacy will continue to follow.
Vancomycin Follow UP
- -
Patient Age: 88
Patient Sex: Female
Vancomycin Day #: 3
Indication: Pulmonary/Respiratory
Requesting Provider: Mathieu Wallace
Pertinent Antimicrobial Allergies:
penicillins - rash
Height / Weight:
Height 5 ft 4 in
Actual Weight 59.506 kg
Pertinent Past Medical History: COPD, PULM HTN
- Vital Signs / Lab Results
Temp Pulse Resp BP Pulse Ox
97.5 F 70 17 174/80 96
06/26/23 07:30 06/26/23 07:30 06/26/23 07:30 06/26/23 07:30 06/26/23 07:30
Lab Results - Hematology
06/24/23 06/25/23 06/26/23
13:48 05:11 08:50
WBC 10.1 8.9 5.4
Lab Results - Chemistry
06/24/23 06/25/23 06/26/23
13:40 05:11 08:50
BUN 37 H 33 H 33 H
Creatinine 1.0 0.9 1.0
Estimated Creat Clear 38 34
Albumin 3.0 L
Microbiology Results
06/24/23 20:36 Nasal Screen MRSA (PCR) - Final
Nose Staph aureus MRSA
Therapeutic Drug Monitoring
Random Vancomycin 15.7 ug/ml 06/26/23 08:50
[2023-06-26] MEDS: VANCOCIN HCL 500 MG 100 IV (11:58)
[2023-06-26] MEDS: PAXIL 20 MG PO (11:58)
[2023-06-26] MEDS: PULMICORT 0.5 MG INH ×2 (12:06→19:54)
[2023-06-26] MEDS: DUONEB 3 ML INH ×2 (12:06→19:54)
[2023-06-26] MEDS: SODIUM CHLORIDE 3% FOR INHALATION 1 VIAL INH ×2 (12:06→19:54)
--- NOTE | 2023-06-26 12:26 | W.PN.HOSP.TC ---
Addendum entered and electronically signed by Nikolai Gomez DO 06/26/23 13:27:
Sacral pressure injury stage 1
Original Note:
Today's Communication/Plan
-
Add Acapella
Bronchoscopy tomorrow
Sputum culture
Assessment / Plan
Assessment / Plan
Gen-AAOx3, NAD
HEENT-NC, AT, anicteric, clear oral mm
Neck-supple
CV-reg, no M, +S1/S2
Lungs-decreased breath sounds on left side
Abd-soft, NT, ND
Ext-no edema
Musculoskeletal-no cyanosis, clubbing
Skin-warm and dry
Neuro-grossly non-focal
Psych-calm, cooperative
Acute hypoxic respiratory insufficiency -due to chronic left sided atelectasis. Chronic complete opacification of left hemithorax. Not requiring supplemental oxygen. Not on oxygen at home.
Chronic left hemithorax atelectasis -presumed to be due to mucous plugging. Add Acapella. Continue vest therapy. Mucinex. Awaiting bronchoscopy tomorrow. Pulmonary following.
CT chest confirms complete opacification of the left lung with significant volume loss most compatible with atelectasis. No CT evidence for left bronchial obstruction or mucous plugging. Air bronchograms noted throughout the opacified left lung.
Leftward mediastinal shift. Multiple borderline enlarged prevascular mediastinal lymph nodes. Stable nodular enlargement of the left lobe of the thyroid gland.
No clinical signs or symptoms of infection. Currently on empiric antibiotics. Can check sputum culture.
Hyponatremia -suspect chronic. Sodium 132. Urine studies consistent with SIADH. Etiology unclear but could be related to pulmonary process. Fluid restriction ordered. Thyroid function and adrenal function normal.
Hyperkalemia -hold losartan. Repeat labs in the morning.
COPD with acute exacerbation -pulmonary consult feels that she has an acute COPD exacerbation. Prednisone initiated. No appreciable wheeze on exam.
Chronic pulmonary hypertension
Chronic normocytic anemia -hemoglobin at baseline. Unclear etiology.
Essential hypertension -blood pressures are labile. Hold losartan given hyperkalemia. Continue hydralazine, nadolol, furosemide.
Thyroid mass
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 She is due for surgery.
Chronic subdural hematoma
Diverticulosis
Anxiety disorder
DNR
Anticipated Discharge: > 48 hours
Subjective/Interval History
-
Date of Service: June 26, 2023
Patient seen/examined. No shortness of breath currently. Still with cough, productive of clear phlegm.
Objective Data
-
Labs:
Laboratory Results
06/26/23
08:50
WBC 5.4
Hgb 9.3 L
Hct 27.5 L
Plt Count 295
Sodium 132 L
Potassium 5.6 H
Chloride 100
Carbon Dioxide 29
BUN 33 H
Creatinine 1.0
Glucose 123 H
Calcium 9.7
Vital Signs:
Vital Signs
Temp Pulse Resp BP Pulse Ox
97.5 F 83 16 174/80 97
06/26/23 07:30 06/26/23 12:12 06/26/23 12:12 06/26/23 07:30 06/26/23 12:12
I&O
06/25/23 06/26/23 06/27/23
06:59 06:59 06:59
Intake Total 120 / 120
Balance 120 / 120
Review of Systems
-
History Source: Patient
All other systems: Reviewed and negative
--- NOTE | 2023-06-26 13:15 | PN.CDI ---
CDI
- -
CDI:
Physician Documentation Request
Admit Date: 06/24/23 17:42
Dear Doctor Patricia,
Please review the following and provide your response in the progress notes.
Clinical Indicators:
Pt admitted with Hemithorax/atelectasis /COPD exacerbation
Documented per nutrition consult 06/23,' Skin: stage I sacrum...'
Wound care panel 06/23 , Sacral pressure injury stage 1..adhesive foam applied ..'
Physician documentation of the type and location of wounds is required for compliant documentation. Based on the above clinical findings and your assessment, please provide the following in your progress note:
1. Location of the ulcer/wound, including laterality.
2. Type (etiology) of ulcer/wound:
- Pressure (decubitus) ulcer
- Non-pressure ulcer
- Other
Use of terms such as suspected, likely, concern for, or probable (associated with a specific diagnosis that is being evaluated, monitored, or treated as if it exists) are acceptable and can be coded in the inpatient setting, when documented at the
time of discharge.
Thank you,
Ledy Leal RN
CDI Specialist
[place] [employer]
Please use your independent medical judgment in providing your response.
*Source: National Pressure Ulcer Advisory Panel (NPUAP)
[2023-06-26 15:00] VITALS: BP 130/57
[2023-06-26] MEDS: LOVENOX 40 MG SC (17:40)
[2023-06-26 20:43] VITALS: BP 114/54
[2023-06-26] MEDS: OCUVITE SOFTGEL 1 CAP PO (20:47)
[2023-06-26] MEDS: MUCINEX 1200 MG PO (20:47)
[2023-06-26 22:30] VITALS: BP 130/53
[2023-06-26] MEDS: REFRESH EYE DROPS (PF) 2 DROPS LEFT EYE (23:00)
[2023-06-27] VITALS (8 sets, daily range): BP systolic 99–142; BP diastolic 57–95; BMI 22.5
[2023-06-27] MEDS: MAXIPIME 1000 MG IV ×3 (00:51→17:09)
[2023-06-27] MEDS: STERILE WATER FOR INJECTION 10 ML IV ×3 (00:51→17:09)
--- NOTE | 2023-06-27 07:47 | W.PN.PUL3 ---
Today's Communication / Plan
-
NPO for bronch today for washout and BAL
Abx
DuoNebs, 3%, mucinex and vest therapy
Aspiration precautions
Encourage IS
PT
Assessment
-
Assessment: 88-year-old female with a past medical history of COPD, chronic rhinitis, restrictive lung disease, history of staphylococcal pneumonia (left), and subdural hematoma (March 2023) s/p fall who presents with lightheadedness and reports
of low SpO2 at home. 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 Patient afebrile to 98.2 �F, heart rate 62, RR: 18, BP: 150/62, SpO2 90% on room air. Labs showed normal WBC at 10.1, Hb 10.3, sNa: 130, sCl: 96,
glucose 81, ALP 174, albumin 3, and a CXR on 06/24/2023 shows almost complete opacification of the left hemithorax. Of note, her left upper lobe on her CT C�spine from 03/29/2023 shows ISA apical�anterior atelectasis. Patient was admitted to the
hospitalist service with DuoNebs, broad-spectrum antibiotics with cefepime/vancomycin, nebulized 3% NS, and nasal budesonide 0.6 mg daily. Pulmonary now consulted for additional management/recommendations.
Chronic medical conditions ALUMINIZER: Moderate COPD (via spirometry from 12/2021), chronic left-sided pneumonia with Hx of MSSA (06/2021), hypertension, IBS, history of basal cell carcinoma s/p Mohs surgery (2007), nasal surgery, bullous pemphigoid,
hyperlipidemia
Impression:
#Chronic left hemithorax opacification due to chronic pneumonia in setting of retained secretions with poor expectoration
#Moderate COPD with acute exacerbation
#Positive MRSA screen via nares
#Hypoglycemia
#Chronic rhinitis
#Chronic anemia (baseline Hb 9.5 - 11)
#Chronic hyponatremia
Plan:
- for bronchoscopy today for washout of left hemithorax and BAL - will send bacterial Cx, AFB, fungus, legionella DFA/Cx, RSV, and viral Cx
- Continue empiric broad spectrum ABx (cefepime/IV vanco) - ABx started 06/24/2023 - would give 7-10 days assuming she continues to improve and remains afebrile for >48 hrs prior to stopping; given the chronic nature of her pneumonia she may need a
prolonged course of Abx
- Aspiration precautions
- HOB>30-45�
- Mucolytics with nebulized 3% with DuoNebs; continue mucinex
- Continue vest therapy
- Continue prednisone taper given her Hx of COPD with acute exacerbation
- Continue Pulmicort BID
- Last evaluated by FILM PROJECTOR OPERATOR in July 2022 with no laryngeal penetration or aspiration observed with pur�ed or solid
- Maintain SpO2>88% with supplemental O2 as needed
- Maintain MAP>65
- PT/OT
- Replete K>3.5, Mg>1.8
- Maintain euglycemia with goal BG>100 and <180
- Trend serum Na with goal ~135 (she has been around 131-134 over last 4 months)
- DVT ppx
Pulmonary service will continue to follow along.
Total time spent today was 35 minutes for this encounter. Time includes reviewing laboratory test/imaging results, reviewing pertinent medical records, obtaining and reviewing medical history, performing an appropriate exam, ordering medications,
tests and procedures. Time also includes documentation of this encounter, coordinating patient care and communicating with other healthcare professionals. Total time does not include separately billed tests performed on this date of service.
Data:
CT Chest without contrast 06-26-2023:
1. Complete opacification of the left lung with significant volume loss most compatible with atelectasis. However, no CT evidence for left bronchial obstruction/mucous plugging. Air bronchograms noted throughout the opacified left lung.
2. Leftward mediastinal shift.
3. Multiple borderline enlarged prevascular mediastinal lymph nodes, similar compared to the chest CT from 09/01/2021.
4. Stable nodular enlargement of the left lobe of the thyroid gland.
CXR 06-24-2023: Stable exam with complete left hemithorax volume loss.
Outpatient BCMA data:
Spirometry �12-22-2021: FEV1/FVC: 61 --> 54 with BD; post-BD FEV1: 61% (1.02L); FVC: 68% --> 82% with BD; positive/significant bronchodilator response. Imp: Moderate obstructive lung defect.
Subjective Data
-
Date of Service:
Date of Service: June 27, 2023
Chief Complaint: Pulmonary Follow Up
Subjective:
Pt seen this AM. Awaiting bronchoscopy. No acute events reported from overnight. Remains on room air, breathing comfortably.
Review of Systems
General: Other (negative unless mentioned above)
Objective Data
Data Reviewed
Vital Signs / I&O / Oxygen:
Vital Signs
Temp Pulse Resp BP Pulse Ox
97.6 F 64 16 130/53 94
06/26/23 22:30 06/26/23 22:30 06/26/23 22:30 06/26/23 22:30 06/26/23 22:30
Intake and Output
06/26/23 06/27/23 06/28/23
06:59 06:59 06:59
Intake Total 300 / 300
Balance 300 / 300
SaO2 94
Physical Exam
General: Comfortable
HEENT: Normocephalic and Anicteric
Cardiovascular: S1-S2 and Peripheral Edema (negative)
Respiratory: Wheeze (negative), Crackles (left hemithorax (apical)), Rhonchi (negative) and Other (Reduced breath sounds at left lung base-middle lung field)
GI: Soft, Non Distended, Non Tender and Normal Bowel Sounds
Neurology: Awake and Alert
Skin: Warm and Dry
Labs/Micro/Reports
Microbiology
06/24/23 20:36 Nose Nasal Screen MRSA (PCR) - Final
Staph aureus MRSA
[2023-06-27] MEDS: DUONEB 3 ML INH ×2 (08:24→20:07)
[2023-06-27] MEDS: SODIUM CHLORIDE 3% FOR INHALATION 1 VIAL INH ×2 (08:24→20:07)
[2023-06-27] MEDS: PULMICORT 0.5 MG INH ×2 (08:24→20:07)
[2023-06-27 08:41] LABS: % Basophils 0.5 % (0-2); % Eosinophils 0.4 % (0-6); % Immature Granulocytes 0.4 % (0-0.5); % Monocytes 10.9 % (1.7-9.3); % Neutrophils 65.8 % (42.2-75.2); Absolute Lymphocytes 1.9 10^3/uL (1.2-3.4); Absolute Monocytes 0.9 10^3/uL (0.1-0.6); Absolute Neutrophils 5.7 10^3/uL (1.4-6.5); Hematocrit 26.8 % (37.0-47.0); Hemoglobin 8.9 g/dL (12.0-16.0); Mean Corp Hgb Conc. 33.2 g/dL (33.0-37.0); Mean Corpuscular Volume 87.3 fL (81.0-99.0); Mean Platelet Volume 10.3 fL (7.4-10.4); Nucleated Red Blood Cells % 0 %; Platelet Count 316 10^3/uL (130-400); Red Blood Cell Count 3.07 10^6/uL (4.20-5.40); Red Cell Dist. Width 15.5 % (11.5-14.5); White Blood Cell Count 8.6 10^3/uL (4.8-10.8)
[2023-06-27 08:56] LABS: Vancomycin Random 13.5 ug/ml
--- NOTE | 2023-06-27 09:08 | W.PN.HOSP.TC ---
Today's Communication/Plan
-
Await labs
Bronchoscopy
Assessment / Plan
Assessment / Plan
Gen-AAOx3, NAD
HEENT-NC, AT, anicteric, clear oral mm
Neck-supple
CV-reg, no M, +S1/S2
Lungs-decreased breath sounds on left side
Abd-soft, NT, ND
Ext-no edema
Musculoskeletal-no cyanosis, clubbing
Skin-warm and dry
Neuro-grossly non-focal
Psych-calm, cooperative
Acute hypoxic respiratory insufficiency -due to chronic left sided atelectasis. Chronic complete opacification of left hemithorax. Not requiring supplemental oxygen. Not on oxygen at home.
Chronic left hemithorax atelectasis -presumed to be due to mucous plugging. Add Acapella. Continue vest therapy. Mucinex. Awaiting bronchoscopy today. Pulmonary following.
CT chest confirms complete opacification of the left lung with significant volume loss most compatible with atelectasis. No CT evidence for left bronchial obstruction or mucous plugging. Air bronchograms noted throughout the opacified left lung.
Leftward mediastinal shift. Multiple borderline enlarged prevascular mediastinal lymph nodes. Stable nodular enlargement of the left lobe of the thyroid gland.
No clinical signs or symptoms of infection. Currently on empiric antibiotics. Can check sputum culture.
Hyponatremia -suspect chronic. Labs pending for today. Urine studies consistent with SIADH. Etiology unclear but could be related to pulmonary process. Fluid restriction ordered. Thyroid function and adrenal function normal.
Hyperkalemia -hold losartan. Repeat labs in the morning.
COPD with acute exacerbation -pulmonary consult feels that she has an acute COPD exacerbation. Prednisone initiated. No appreciable wheeze on exam.
Chronic pulmonary hypertension
Chronic normocytic anemia -hemoglobin slowly drifting down, 8.9 today. No evidence of bleeding. Monitor for now.
Essential hypertension -blood pressures are labile. Hold losartan given hyperkalemia. Continue hydralazine, nadolol, furosemide.
Thyroid mass
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 She is due for surgery.
Chronic subdural hematoma
Diverticulosis
Anxiety disorder
DNR
Anticipated Discharge: 24 - 48 hours
Subjective/Interval History
-
Date of Service: June 27, 2023
Patient seen and examined. Complaining of cough. Denies dyspnea.
Objective Data
-
Labs:
Laboratory Results
06/27/23
08:01
WBC 8.6
Hgb 8.9 L
Hct 26.8 L
Plt Count 316
Sodium Pending
Potassium Pending
Chloride Pending
Carbon Dioxide Pending
BUN Pending
Creatinine Pending
Glucose Pending
Calcium Pending
Vital Signs:
Vital Signs
Temp Pulse Resp BP Pulse Ox
97.5 F 73 16 132/95 96
06/27/23 07:30 06/27/23 08:30 06/27/23 08:30 06/27/23 07:30 06/27/23 08:30
I&O
06/26/23 06/27/23 06/28/23
06:59 06:59 06:59
Intake Total 300 / 300
Balance 300 / 300
Review of Systems
-
History Source: Patient
All other systems: Reviewed and negative
[2023-06-27 09:20] LABS: Blood Urea Nitrogen 36 mg/dl (7-17); Calcium 9.7 mg/dl (8.4-10.2); Carbon Dioxide 28 mmol/L (22-30); Chloride 98 mmol/L (98-107); Estimated Creatinine Clearance 38 ml/min; Glucose 79 mg/dl (70-99); Sodium 133 mmol/L (135-145); eGFR > 60.00
--- NOTE | 2023-06-27 09:21 | PHA.VAN.FU ---
Vancomycin Assessment / Plan
- Assessment
Renal Function: Stable
WBC's are: WNL
In the past 24 hrs, patient has been: Afebrile
Concomitant Antimicrobials: cefepime
- Assessment - Therapeutic Drug Monitoring
Random Level: 13.5 - drawn ~20H after previous dose of 500mg
- Dosing Plan
Dosing by Level: Re-dose today (Vanc 500mg)
Dosing Comments: level appropriately decreased today - follow trend
- Monitoring Plan
Random Level: 06/27 06
- Follow Up
Pharmacy will continue to follow.
Vancomycin Follow UP
- -
Patient Age: 88
Patient Sex: Female
Vancomycin Day #: 4
Indication: Pulmonary/Respiratory
Requesting Provider: Mathieu Wallace
Pertinent Antimicrobial Allergies:
penicillins - rash
Height / Weight:
Height 5 ft 4 in
Actual Weight 59.421 kg
Pertinent Past Medical History: COPD, PULM HTN
- Vital Signs / Lab Results
Temp Pulse Resp BP Pulse Ox
97.5 F 73 16 132/95 96
06/27/23 07:30 06/27/23 08:30 06/27/23 08:30 06/27/23 07:30 06/27/23 08:30
Lab Results - Hematology
06/24/23 06/25/23 06/26/23
13:48 05:11 08:50
WBC 10.1 8.9 5.4
06/27/23
08:01
WBC 8.6
Lab Results - Chemistry
06/24/23 06/25/23 06/26/23
13:40 05:11 08:50
BUN 37 H 33 H 33 H
Creatinine 1.0 0.9 1.0
Estimated Creat Clear 38 34
Albumin 3.0 L
06/27/23
08:01
BUN 36 H
Creatinine 0.9
Estimated Creat Clear 38
Albumin
Microbiology Results
06/24/23 20:36 Nasal Screen MRSA (PCR) - Final
Nose Staph aureus MRSA
Therapeutic Drug Monitoring
Random Vancomycin 13.5 ug/ml 06/27/23 08:01
[2023-06-27 09:28] LABS: Potassium 4.7 mmol/L (3.5-5.1)
[2023-06-27] MEDS: DESENEX/MITRAZOL/ZEASORB 1 APPLIC TOPICAL ×2 (09:37→20:31)
[2023-06-27] MEDS: MUCINEX 1200 MG PO ×2 (09:37→20:31)
[2023-06-27] MEDS: CORGARD 40 MG PO (09:37)
[2023-06-27] MEDS: OCUVITE SOFTGEL PO ×2 (09:38→09:47)
[2023-06-27] MEDS: NON-FORMULARY ITEM RIGHT EYE ×2 (09:38→11:33)
[2023-06-27] MEDS: APRESOLINE 20 MG PO ×2 (09:38→20:34)
[2023-06-27] MEDS: LASIX 20 MG PO (09:38)
[2023-06-27] MEDS: DELTASONE 60 MG PO (09:38)
[2023-06-27] MEDS: VANCOCIN HCL 500 MG 100 IV (09:41)
--- NOTE | 2023-06-27 10:03 | CM ---
Addendum entered by Yahaira Sarabia 06/27/23 15:44:
Patient has been accepted at [facility] and bed is available for 06/28/23
[facility]
Report [phone]

Original Note:
clinic manager reviewed patient's chart and per physical therapy notes recommendation is for skilled placement, options reviewed with patient and she has selected [facility] in [place]. Referral sent to [facility] and
message left for Margaret in admissions to confirm when there is a bed available.
Plan; Skilled placement at [facility].
[2023-06-27] MEDS: PAXIL 20 MG PO (11:38)
[2023-06-27] MEDS: NON-FORMULARY ITEM 1 DROP RIGHT EYE ×3 (11:40→21:28)
[2023-06-27 17:02] LABS: BAL Lymphocytes 3 %; BAL Macrophages 13 %; BAL Neutrophils 84 %; Brochalveolar Lavage Character Turbid (Clear); Brochalveolar Lavage Color YELLOW; Brochalveolar Lavage Volume 23 ml; Brochalveolar Lavage WBC 2090000 cells/ml
[2023-06-27] MEDS: LOVENOX 40 MG SC (17:09)
[2023-06-27] MEDS: OCUVITE SOFTGEL 1 CAP PO (20:31)
[2023-06-28] MEDS: STERILE WATER FOR INJECTION 10 ML IV ×3 (01:06→17:22)
[2023-06-28] MEDS: MAXIPIME 1000 MG IV ×3 (01:06→17:22)
[2023-06-28 05:50] VITALS: BMI 22.5
[2023-06-28 07:00] VITALS: BP 139/52
[2023-06-28] MEDS: PULMICORT 0.5 MG INH ×2 (07:46→19:39)
[2023-06-28] MEDS: DUONEB 3 ML INH ×2 (07:46→19:39)
[2023-06-28] MEDS: SODIUM CHLORIDE 3% FOR INHALATION 1 VIAL INH ×2 (07:47→19:39)
[2023-06-28 08:08] LABS: % Basophils 0.1 % (0-2); % Immature Granulocytes 0.4 % (0-0.5); % Monocytes 10.1 % (1.7-9.3); % Neutrophils 68.4 % (42.2-75.2); Absolute Lymphocytes 1.6 10^3/uL (1.2-3.4); Absolute Monocytes 0.8 10^3/uL (0.1-0.6); Absolute Neutrophils 5.1 10^3/uL (1.4-6.5); Hematocrit 25.5 % (37.0-47.0); Hemoglobin 8.5 g/dL (12.0-16.0); Mean Corp Hgb Conc. 33.3 g/dL (33.0-37.0); Mean Corpuscular Hgb 29.2 pg (27.0-31.0); Mean Corpuscular Volume 87.6 fL (81.0-99.0); Mean Platelet Volume 10.2 fL (7.4-10.4); Nucleated Red Blood Cells % 0 %; Platelet Count 339 10^3/uL (130-400); Red Blood Cell Count 2.91 10^6/uL (4.20-5.40); Red Cell Dist. Width 15.6 % (11.5-14.5); White Blood Cell Count 7.5 10^3/uL (4.8-10.8)
[2023-06-28 08:28] LABS: Blood Urea Nitrogen 34 mg/dl (7-17); Calcium 9.3 mg/dl (8.4-10.2); Carbon Dioxide 28 mmol/L (22-30); Chloride 98 mmol/L (98-107); Estimated Creatinine Clearance 34 ml/min; Glucose 82 mg/dl (70-99); Potassium 4.5 mmol/L (3.5-5.1); Sodium 134 mmol/L (135-145); eGFR 54.53
[2023-06-28 08:40] LABS: Vancomycin Random 13.6 ug/ml
--- NOTE | 2023-06-28 10:01 | PHA.VAN.FU ---
Vancomycin Assessment / Plan
- Assessment
Renal Function: Stable
WBC's are: WNL
In the past 24 hrs, patient has been: Afebrile
Concomitant Antimicrobials: cefepime
- Assessment - Therapeutic Drug Monitoring
Random Level: 13.6 - drawn ~21H after previous dose of 500mg
- Dosing Plan
Adjust Regimen to: Vanc 500mg Q24H based on level trend
- Monitoring Plan
No level(s) ordered at this time: consider levels in next few days
- Follow Up
Pharmacy will continue to follow.
Vancomycin Follow UP
- -
Patient Age: 88
Patient Sex: Female
Vancomycin Day #: 5
Indication: Pulmonary/Respiratory
Requesting Provider: Mathieu Wallace
Pertinent Antimicrobial Allergies:
penicillins - rash
Height / Weight:
Height 5 ft 4 in
Actual Weight 59.506 kg
Pertinent Past Medical History: COPD, PULM HTN
- Vital Signs / Lab Results
Temp Pulse Resp BP Pulse Ox
97.4 F 74 14 139/52 97
06/28/23 07:00 06/28/23 07:57 06/28/23 07:57 06/28/23 07:00 06/28/23 07:57
Lab Results - Hematology
06/26/23 06/27/23 06/28/23
08:50 08:01 07:14
WBC 5.4 8.6 7.5
Lab Results - Chemistry
06/26/23 06/27/23 06/28/23
08:50 08:01 07:14
BUN 33 H 36 H 34 H
Creatinine 1.0 0.9 1.0
Estimated Creat Clear 34 38 34
Microbiology Results
06/27/23 14:37 Gram Stain - Preliminary
Bronch Left Upper Lobe
06/27/23 14:37 Fungal Culture - Preliminary
Bronchoalveolar Lavage Culture in progress.
Positive cultures are reported as soon as detected.
Final report to follow in four to five weeks.
Therapeutic Drug Monitoring
Random Vancomycin 13.6 ug/ml 06/28/23 07:14
[2023-06-28] MEDS: DELTASONE 50 MG PO (10:03)
[2023-06-28] MEDS: APRESOLINE 20 MG PO (10:03)
[2023-06-28] MEDS: OCUVITE SOFTGEL 1 CAP PO ×2 (10:03→20:19)
[2023-06-28] MEDS: MUCINEX 1200 MG PO ×2 (10:03→20:19)
[2023-06-28] MEDS: CORGARD 40 MG PO (10:03)
--- NOTE | 2023-06-28 10:07 | W.PN.HOSP.TC ---
Today's Communication/Plan
-
Continue current care
Discharge planning
Assessment / Plan
Assessment / Plan
Gen-AAOx3, NAD
HEENT-NC, AT, anicteric, clear oral mm
Neck-supple
CV-reg, no M, +S1/S2
Lungs-decreased breath sounds on left side
Abd-soft, NT, ND
Ext-no edema
Musculoskeletal-no cyanosis, clubbing
Skin-warm and dry
Neuro-grossly non-focal
Psych-calm, cooperative
Acute hypoxic respiratory insufficiency -due to chronic left sided atelectasis. Chronic complete opacification of left hemithorax. Not requiring supplemental oxygen. Not on oxygen at home. Currently on 2 L nasal cannula.
Chronic left hemithorax atelectasis -presumed to be due to mucous plugging. Add Acapella. Continue vest therapy. Mucinex. Bronchoscopy completed 06/26. Fluid studies pending. Postprocedure chest x-ray with minimal improvement.
CT chest confirms complete opacification of the left lung with significant volume loss most compatible with atelectasis. No CT evidence for left bronchial obstruction or mucous plugging. Air bronchograms noted throughout the opacified left lung.
Leftward mediastinal shift. Multiple borderline enlarged prevascular mediastinal lymph nodes. Stable nodular enlargement of the left lobe of the thyroid gland.
No clinical signs or symptoms of infection. Currently on empiric antibiotics. Sputum culture pending. Respiratory viral culture pending.
Hyponatremia -suspect chronic. Labs pending for today. Urine studies consistent with SIADH. Etiology unclear but could be related to pulmonary process. Fluid restriction ordered. Thyroid function and adrenal function normal.
Hyperkalemia -hold losartan. Potassium normalized.
COPD with acute exacerbation -pulmonary consult feels that she has an acute COPD exacerbation. Prednisone initiated. No appreciable wheeze on exam.
Chronic pulmonary hypertension
Chronic normocytic anemia -hemoglobin slowly drifting down, 8.9 today. No evidence of bleeding. Monitor for now.
Essential hypertension -blood pressures are labile. Hold losartan given hyperkalemia. Continue hydralazine, nadolol, furosemide.
Thyroid mass
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 She is due for surgery.
Chronic subdural hematoma
Diverticulosis
Anxiety disorder
DNR
Dispo -discharge to [facility] for SNF tomorrow if she remains stable. Daughter wants to transport. Updated case management. Pulmonary okay with discharge.
Daughter Rosa updated on the phone.
Anticipated Discharge: Within 24 hours
Subjective/Interval History
-
Date of Service: June 28, 2023
Patient seen and examined. Complaining of fatigue. Did sleep well last night. Did not cough last night.
Objective Data
-
Labs:
Laboratory Results
06/28/23
07:14
WBC 7.5
Hgb 8.5 L
Hct 25.5 L
Plt Count 339
Sodium 134 L
Potassium 4.5
Chloride 98
Carbon Dioxide 28
BUN 34 H
Creatinine 1.0
Glucose 82
Calcium 9.3
Vital Signs:
Vital Signs
Temp Pulse Resp BP Pulse Ox
97.4 F 74 14 139/52 97
06/28/23 07:00 06/28/23 07:57 06/28/23 07:57 06/28/23 07:00 06/28/23 07:57
I&O
06/27/23 06/28/23 06/29/23
06:59 06:59 06:59
Intake Total 300 / 300 460 / 460
Balance 300 / 300 460 / 460
Review of Systems
-
History Source: Patient
All other systems: Reviewed and negative
[2023-06-28] MEDS: DESENEX/MITRAZOL/ZEASORB 1 APPLIC TOPICAL ×2 (10:08→20:18)
--- NOTE | 2023-06-28 10:23 | CM ---
Addendum entered by Claire Zavala 06/29/23 12:27:
Met with patient at bedside
IMM benefit explained; form signed @1240
Plan: discharge to [facility] today; daughter will transport to facility
Addendum entered by Claire Zavala 06/28/23 10:32:
Daughter, Rosa, notified via phone; she will warehouse order picker patient for transport @ 1300 tomorrow
Original Note:
Plan: discharge patient to [facility] tomorrow, 06/29/23 ; daughter will transport via private car
Report [phone]
[2023-06-28] MEDS: NON-FORMULARY ITEM 1 DROP RIGHT EYE ×4 (10:54→21:08)
[2023-06-28] MEDS: PAXIL 20 MG PO (12:21)
--- NOTE | 2023-06-28 12:21 | W.PN.PUL3 ---
Today's Communication / Plan
-
s/p bronch yesterday for washout and BAL - growing S. aureus
Unfortunately left lung remains grossly consolidated and opacified despite my efforts.
Abx with 10-14 day course - would send home on Augmentin + Doxy
DuoNebs, 3%, mucinex and vest therapy
Aspiration precautions
Encourage IS
PT
Patient is being prepared for discharge home tomorrow. I will arrange for outpatient follow-up with us in the office. Pulmonary service will now sign off. Please reconsult if there are any additional questions/concerns, or if patient's
respiratory status deteriorates.
Assessment
-
Assessment: 88-year-old female with a past medical history of COPD, chronic rhinitis, restrictive lung disease, history of staphylococcal pneumonia (left), and subdural hematoma (March 2023) s/p fall who presents with lightheadedness and reports
of low SpO2 at home. 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 Patient afebrile to 98.2 �F, heart rate 62, RR: 18, BP: 150/62, SpO2 90% on room air. Labs showed normal WBC at 10.1, Hb 10.3, sNa: 130, sCl: 96,
glucose 81, ALP 174, albumin 3, and a CXR on 06/24/2023 shows almost complete opacification of the left hemithorax. Of note, her left upper lobe on her CT C�spine from 03/29/2023 shows ISA apical�anterior atelectasis. Patient was admitted to the
hospitalist service with DuoNebs, broad-spectrum antibiotics with cefepime/vancomycin, nebulized 3% NS, and nasal budesonide 0.6 mg daily. Pulmonary now consulted for additional management/recommendations.
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
hyperlipidemia
Impression:
#Chronic left hemithorax opacification due to chronic pneumonia in setting of retained secretions with poor expectoration
#Staph aureus pneumonia
#Moderate COPD with acute exacerbation
#Positive MRSA screen via nares
#Hypoglycemia � resolved
#Chronic rhinitis
#Chronic anemia (baseline Hb 9.5 - 11)
#Chronic hyponatremia
Plan:
- for bronchoscopy yesterday for washout of left hemithorax and BAL - sent for bacterial Cx, AFB, fungus, legionella DFA/Cx, RSV, and viral Cx
- Bronchial Cx growing staph aureus
- there was no central airway obstruction but copious mucopurulent secretions, which were successfully suctioned.
-While patient remains inpatient, continue empiric broad spectrum ABx (cefepime/IV vanco) - ABx started 06/24/2023 - would give 10-14 days total given the chronic nature of her pneumonia
- Until BAL fluid culture sensitivities return, will need to cover MRSA. Should DC home on doxy + augmentin
- Aspiration precautions
- HOB>30-45�
- Mucolytics with nebulized 3% with DuoNebs; continue mucinex
- Continue vest therapy
- Continue prednisone taper given her Hx of COPD with acute exacerbation
- Continue Pulmicort BID
- Last evaluated by PAINTER SHIPYARD in July 2022 with no laryngeal penetration or aspiration observed with pur�ed or solid
- Maintain SpO2>88% with supplemental O2 as needed
- Maintain MAP>65
- PT/OT
- Replete K>3.5, Mg>1.8
- Maintain euglycemia with goal BG>100 and <180
- Trend serum Na with goal ~135 (she has been around 131-134 over last 4 months)
- DVT ppx
Patient is being prepared for discharge home tomorrow. I will arrange for outpatient follow-up with us in the office. Pulmonary service will now sign off. Thank you for allowing us to be involved in the care of this patient. Please reconsult if
there are any additional questions/concerns, or if patient's respiratory status deteriorates.
Total time spent today was 35 minutes for this encounter. Time includes reviewing laboratory test/imaging results, reviewing pertinent medical records, obtaining and reviewing medical history, performing an appropriate exam, ordering medications,
tests and procedures. Time also includes documentation of this encounter, coordinating patient care and communicating with other healthcare professionals. Total time does not include separately billed tests performed on this date of service.
Data:
CT Chest without contrast 06-26-2023:
1. Complete opacification of the left lung with significant volume loss most compatible with atelectasis. However, no CT evidence for left bronchial obstruction/mucous plugging. Air bronchograms noted throughout the opacified left lung.
2. Leftward mediastinal shift.
3. Multiple borderline enlarged prevascular mediastinal lymph nodes, similar compared to the chest CT from 09/01/2021.
4. Stable nodular enlargement of the left lobe of the thyroid gland.
CXR 06-24-2023: Stable exam with complete left hemithorax volume loss.
CXR 06-27-2023:
1. No pneumothorax following bronchoscopy.
2. Unchanged volume loss and near complete opacification of the left hemithorax.
Outpatient BCMA data:
Spirometry �12-22-2021: FEV1/FVC: 61 --> 54 with BD; post-BD FEV1: 61% (1.02L); FVC: 68% --> 82% with BD; positive/significant bronchodilator response. Imp: Moderate obstructive lung defect.
Subjective Data
-
Date of Service:
Date of Service: June 28, 2023
Chief Complaint: Pulmonary Follow Up
Subjective:
Underwent bronchoscopy yesterday. Tolerated well. Post-procedure CXR with no PTX. Seen today at bedside with daughter also at bedside. Patient on room air breathing comfortably. No acute events reported from overnight.
Review of Systems
General: Other (Negative unless mentioned above)
Objective Data
Data Reviewed
Vital Signs / I&O / Oxygen:
Vital Signs
Temp Pulse Resp BP Pulse Ox
97.4 F 74 14 139/52 97
06/28/23 07:00 06/28/23 07:57 06/28/23 07:57 06/28/23 07:00 06/28/23 07:57
Intake and Output
06/27/23 06/28/23 06/29/23
06:59 06:59 06:59
Intake Total 300 / 300 460 / 460
Balance 300 / 300 460 / 460
SaO2 97
Nasal Cannula flow liters per 2
minute
Physical Exam
General: Comfortable
HEENT: Normocephalic and Anicteric
Cardiovascular: S1-S2 and Peripheral Edema (negative)
Respiratory: Wheeze (negative), Crackles (negative), Rhonchi (negative) and Other (Bronchial breath sounds heard in the left middle lung field; reduced BS at left lung base)
GI: Soft, Non Distended, Non Tender and Normal Bowel Sounds
Neurology: Awake and Alert
Skin: Warm and Dry
Labs/Micro/Reports
Lab Data
06/28/23 07:14
06/28/23 07:14
Microbiology
06/27/23 14:37 Bronch Left Upper Lobe Gram Stain - Preliminary
06/27/23 14:37 Bronchoalveolar Lavage Fungal Culture - Preliminary
Culture in progress.
Positive cultures are reported as soon as detected.
Final report to follow in four to five weeks.
06/24/23 20:36 Nose Nasal Screen MRSA (PCR) - Final
Staph aureus MRSA
[2023-06-28] MEDS: SENOKOT-S 1 TABLET PO (14:07)
[2023-06-28] MEDS: VANCOCIN HCL 500 MG 100 IV (14:07)
[2023-06-28 15:00] VITALS: BP 110/47
[2023-06-28 15:46] VITALS: O2SAT 94
[2023-06-28] MEDS: LOVENOX 40 MG SC (17:21)
[2023-06-28] MEDS: APRESOLINE PO (20:20)
[2023-06-28 23:59] VITALS: BP 119/50
[2023-06-29] MEDS: MAXIPIME 1000 MG IV ×2 (01:16→10:49)
[2023-06-29] MEDS: STERILE WATER FOR INJECTION 10 ML IV ×2 (01:17→10:49)
[2023-06-29] MEDS: VANCOCIN HCL 500 MG 100 IV (05:01)
[2023-06-29 06:00] VITALS: BMI 22.4
[2023-06-29 07:00] VITALS: BP 152/65
[2023-06-29] MEDS: DUONEB 3 ML INH (07:43)
[2023-06-29] MEDS: SODIUM CHLORIDE 3% FOR INHALATION 1 VIAL INH (07:43)
[2023-06-29] MEDS: PULMICORT 0.5 MG INH (07:43)
--- NOTE | 2023-06-29 09:14 | W.PN.HOSP.TC ---
Today's Communication/Plan
-
Discharge
Assessment / Plan
Assessment / Plan
Gen-AAOx3, NAD
HEENT-NC, AT, anicteric, clear oral mm
Neck-supple
CV-reg, no M, +S1/S2
Lungs-decreased breath sounds on left side
Abd-soft, NT, ND
Ext-no edema
Musculoskeletal-no cyanosis, clubbing
Skin-warm and dry
Neuro-grossly non-focal
Psych-calm, cooperative
Acute hypoxic respiratory insufficiency -due to chronic left sided atelectasis. Chronic complete opacification of left hemithorax. Not requiring supplemental oxygen.
Chronic left hemithorax atelectasis -presumed to be due to mucous plugging. Continue Acapella. Continue vest therapy. Mucinex. Bronchoscopy completed 06/26. Sputum culture showing Staph aureus, sensitivity pending. Postprocedure chest x-ray
with minimal improvement.
CT chest confirms complete opacification of the left lung with significant volume loss most compatible with atelectasis. No CT evidence for left bronchial obstruction or mucous plugging. Air bronchograms noted throughout the opacified left lung.
Leftward mediastinal shift. Multiple borderline enlarged prevascular mediastinal lymph nodes. Stable nodular enlargement of the left lobe of the thyroid gland.
Will change to Augmentin and doxycycline on discharge. Discussed with pulmonary.
Hyponatremia -suspect chronic. Urine studies consistent with SIADH. Etiology unclear but could be related to pulmonary process. Fluid restriction ordered. Thyroid function and adrenal function normal.
Hyperkalemia -hold losartan. Potassium normalized.
COPD with acute exacerbation -pulmonary consult feels that she has an acute COPD exacerbation. Prednisone initiated. No appreciable wheeze on exam.
Chronic pulmonary hypertension
Chronic normocytic anemia -hemoglobin slowly drifting down, 8.9 today. No evidence of bleeding. Monitor for now.
Essential hypertension -blood pressures are labile. Hold losartan given hyperkalemia. Continue hydralazine, nadolol, furosemide.
Thyroid mass
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 She is due for surgery.
Chronic subdural hematoma
Diverticulosis
Anxiety disorder
DNR
Dispo -discharge to [facility] for SNF today. Outpatient follow-up with PCP and pulmonary.
32 minutes spent in discharge process.
Anticipated Discharge: Today
Subjective/Interval History
-
Date of Service: June 29, 2023
Patient seen and examined. Overall feeling better. No complaints.
Objective Data
-
Vital Signs:
Vital Signs
Temp Pulse Resp BP Pulse Ox
97.4 F 74 18 152/65 96
06/29/23 07:00 06/29/23 07:49 06/29/23 07:49 06/29/23 07:00 06/29/23 07:49
I&O
06/28/23 06/29/23 06/30/23
06:59 06:59 06:59
Intake Total 460 / 460 1080 / 1080
Balance 460 / 460 1080 / 1080
Review of Systems
-
History Source: Patient
All other systems: Reviewed and negative
[2023-06-29] MEDS: MUCINEX 1200 MG PO (09:22)
[2023-06-29] MEDS: REFRESH EYE DROPS (PF) 2 DROPS LEFT EYE (09:22)
[2023-06-29] MEDS: CORGARD 40 MG PO (09:23)
[2023-06-29] MEDS: OCUVITE SOFTGEL 1 CAP PO (09:23)
[2023-06-29] MEDS: APRESOLINE 20 MG PO (09:23)
[2023-06-29] MEDS: DESENEX/MITRAZOL/ZEASORB 1 APPLIC TOPICAL (09:25)
[2023-06-29] MEDS: LASIX 20 MG PO (09:25)
--- NOTE | 2023-06-29 09:25 | W.DS.TRANS ---
DC Summary - [employer]
-
Discharge Instructions:
Discharge Diagnosis/Procedures Chronic left sided pneumonia, atelectasis,
hyponatremia, hyperkalemia, COPD exacerbation
Diet Regular
Activity As tolerated,With assistance
Driving Restrictions No driving
Bathing Restrictions None
Instructions:
Stand-Alone Forms:
Changes to Home Medications: Yes
Discharge Medications:
DC Medications w/original date entered in [facility]
hydralazine 10 mg tablet 20 mg PO BID Blood pressure 05/23/21
nadolol 40 mg tablet 40 mg PO DAILY Blood pressure 05/23/21
vit C 250 mg-vit E 90 mg-zinc 40 mg-copper 1 [id number] capsule (PreserVision AREDS-2) 1 tab PO BID Supplement 05/23/21
ipratropium 0.5 mg-albuterol 3 mg (2.5 mg base)/3 mL nebulization soln 3 ml inhalation R BID Lung/breathing issues 07/14/22
paroxetine HCl 20 mg tablet (Paxil) 20 mg PO [facility] 07/14/22
carboxymethylcellulose sodium 0.5 % eye drops (Refresh Tears) 2 drp LEFT EYE BIDPRN PRN dry eyes 07/16/22
budesonide 0.5 mg/2 mL suspension for nebulization 0.5 mg (2 mL) inhalation R BID #0 mL 07/21/22
Budesonide 0.6 mg intranasal DAILY 06/24/23
furosemide 20 mg tablet 20 mg PO Q48H@0800 06/24/23
vancomycin 1 drp RIGHT EYE QID 06/24/23
vancomycin 160 mg intranasal DAILY 06/24/23
amoxicillin 875 mg-potassium clavulanate 125 mg tablet 1 tab PO BID #20 tabs 06/29/23
doxycycline monohydrate 100 mg tablet 100 mg PO BID #20 tabs 06/29/23
guaifenesin 600 mg tablet, extended release 12 hr 1,200 mg (2 x 600 mg) PO Q12 #0 tabs 06/29/23
prednisone 10 mg tablet 10 mg PO DIRECTED #45 tabs 06/29/23
sodium chloride 3 % for nebulization (NebuSal) 4 ml inhalation R BID #120 mL 06/29/23
Home Medication Changes
Stop losartan due to hyperkalemia
Pending Results: No
[2023-06-29] MEDS: DELTASONE 50 MG PO (09:30)
[2023-06-29] MEDS: NON-FORMULARY ITEM 1 DROP RIGHT EYE ×2 (09:34→13:23)
--- NOTE | 2023-06-29 12:26 | PTCARENOTE ---
Attempted to call report to [facility] twice. No answer. Left voicemail for them to call back for report.
--- NOTE | 2023-06-29 12:43 | PTCARENOTE ---
Gave report to [facility].
Reached out to provider as [facility] needs stop dates for the following medications to be added to d/c paperwork: intranasal vancomycin, vancomycin eye drops, Augmentin, and doxycycline
[2023-06-29] MEDS: PAXIL 20 MG PO (13:22)
[2023-06-29] MEDS: SENOKOT-S 1 TABLET PO (13:22)
[2023-06-29 14:00] VITALS: BP 101/59
== END 2023-06-29 14:14 | DRG 178 ==
LOC: 4 WEST ACU 17:42
PROVIDERS: Clinical Nurse Specialist Family Health; Emergency Medicine; ADMITTING PHYSICIAN Hospitalist; ATTENDING PHYSICIAN Hospitalist; EMERGENCY PHYSICIAN Emergency Medicine; FAMILY PHYSICIAN Internal Medicine; OTHER PHYSICIAN Internal Medicine Critical Care Medicine
PROC: 0B9J8ZX Drainage of Left Lower Lung Lobe, Via Natural or Artificial Opening Endoscopic, Diagnostic (ICD-10-PCS; 2023-06-27)
DX: J15.211 Pneumonia due to Methicillin susceptible Staphylococcus aureus (principal); E22.2 Syndrome of inappropriate secretion of antidiuretic hormone; J98.11 Atelectasis; J44.1 Chronic obstructive pulmonary disease with (acute) exacerbation; J44.0 Chronic obstructive pulmonary disease with (acute) lower respiratory infection; I27.20 Pulmonary hypertension, unspecified; I10 Essential (primary) hypertension; R29.6 Repeated falls; F41.9 Anxiety disorder, unspecified; D64.9 Anemia, unspecified; Z66 Do not resuscitate; E78.5 Hyperlipidemia, unspecified; K58.9 Irritable bowel syndrome, unspecified; E16.2 Hypoglycemia, unspecified; J31.0 Chronic rhinitis; E87.5 Hyperkalemia; H02.401 Unspecified ptosis of right eyelid; R09.02 Hypoxemia; R06.89 Other abnormalities of breathing; L89.151 Pressure ulcer of sacral region, stage 1; J32.9 Chronic sinusitis, unspecified; Z79.899 Other long term (current) drug therapy; Z87.01 Personal history of pneumonia (recurrent); Z87.820 Personal history of traumatic brain injury
CPT/HCPCS: 88305; 88312; 71045; 71046; 71250; 80048; 80053; 80202; 82533; 83935; 84300; 84443; 85025; 87015; 87070; 87081; 87102; 87106; 87116; 87147; 87186; 87205; 87252; 87641; 88112; 89051; 94640; 94669; 97162; 97166; 97530; 99285

== ENCOUNTER → 2023-07-02 11:28 | Outpatient (REF) | payer OTHER, MEDICARE, BC, SELFPAY ==
[2023-07-02 13:13] LABS: Hematocrit 25.6 % (37.0-47.0); Hemoglobin 8.3 g/dL (12.0-16.0); Mean Corp Hgb Conc. 32.4 g/dL (33.0-37.0); Mean Corpuscular Hgb 29.5 pg (27.0-31.0); Mean Corpuscular Volume 91.1 fL (81.0-99.0); Mean Platelet Volume 11.3 fL (7.4-10.4); Platelet Count 358 10^3/uL (130-400); Red Blood Cell Count 2.81 10^6/uL (4.20-5.40); Red Cell Dist. Width 16.3 % (11.5-14.5); White Blood Cell Count 8.9 10^3/uL (4.8-10.8)
[2023-07-02 13:57] LABS: ALT (SGPT) 29 U/L (0-35); AST (SGOT) 35 U/L (14-36); Albumin 2.6 g/dl (3.5-5.0); Alkaline Phosphatase 135 U/L (38-126); Blood Urea Nitrogen 35 mg/dl (7-17); Calcium 9.3 mg/dl (8.4-10.2); Carbon Dioxide 30 mmol/L (22-30); Chloride 100 mmol/L (98-107); Glucose 63 mg/dl (70-99); Potassium 4.7 mmol/L (3.5-5.1); Sodium 133 mmol/L (135-145); Total Bilirubin 0.3 mg/dl (0.2-1.3); Total Protein 6.4 g/dl (6.3-8.2); eGFR > 60.00
== END ==
LOC: OLABWHC 11:28
PROVIDERS: ATTENDING PHYSICIAN Family Medicine
DX: J98.11 Atelectasis (principal); E87.5 Hyperkalemia; I10 Essential (primary) hypertension
CPT/HCPCS: 36415; 80053; 85027

== ENCOUNTER → 2023-07-11 10:00 | Outpatient (REF) | payer MEDICARE, BC, SELFPAY ==
[2023-07-11 12:04] LABS: % Basophils 0.9 % (0-2); % Eosinophils 2.5 % (0-6); % Immature Granulocytes 0.5 % (0-0.5); % Lymphocytes 13.5 % (20.5-51.1); % Monocytes 8.7 % (1.7-9.3); % Neutrophils 73.9 % (42.2-75.2); Absolute Basophils 0.1 10^3/uL (0-0.2); Absolute Eosinophils 0.2 10^3/uL (0-0.7); Absolute Immature Granulocytes 0.1 10^3/uL (0-0.05); Absolute Lymphocytes 1.2 10^3/uL (1.2-3.4); Absolute Monocytes 0.8 10^3/uL (0.1-0.6); Absolute Neutrophils 6.8 10^3/uL (1.4-6.5); Hematocrit 28.7 % (37.0-47.0); Hemoglobin 9.5 g/dL (12.0-16.0); Mean Corp Hgb Conc. 33.1 g/dL (33.0-37.0); Mean Corpuscular Hgb 29.7 pg (27.0-31.0); Mean Corpuscular Volume 89.7 fL (81.0-99.0); Mean Platelet Volume 10.2 fL (7.4-10.4); Nucleated Red Blood Cells % 0 %; Platelet Count 344 10^3/uL (130-400); Red Cell Dist. Width 16.7 % (11.5-14.5); White Blood Cell Count 9.2 10^3/uL (4.8-10.8)
[2023-07-11 13:09] LABS: ALT (SGPT) 28 U/L (0-35); AST (SGOT) 34 U/L (14-36); Albumin 3.1 g/dl (3.5-5.0); Alkaline Phosphatase 106 U/L (38-126); Blood Urea Nitrogen 30 mg/dl (7-17); Carbon Dioxide 31 mmol/L (22-30); Chloride 101 mmol/L (98-107); Glucose 88 mg/dl (70-99); Potassium 4.2 mmol/L (3.5-5.1); Sodium 136 mmol/L (135-145); Total Bilirubin 0.4 mg/dl (0.2-1.3); Total Protein 7.2 g/dl (6.3-8.2); eGFR > 60.00
== END ==
LOC: HWLAB 10:00
PROVIDERS: ATTENDING PHYSICIAN Family Medicine; FAMILY PHYSICIAN Internal Medicine
DX: D64.9 Anemia, unspecified (principal)
CPT/HCPCS: 36415; 80053; 85025

== ENCOUNTER → 2023-07-16 10:25 | Outpatient (REF) | payer MEDICARE, BC, SELFPAY | LOC: HWRAD 10:25 | PROVIDERS: ATTENDING PHYSICIAN Internal Medicine Critical Care Medicine; FAMILY PHYSICIAN Internal Medicine | DX: R93.89 Abnormal findings on diagnostic imaging of other specified body structures (principal) | CPT/HCPCS: 71046 ==

== ENCOUNTER → 2023-08-02 10:03 | Outpatient (REF) | payer MEDICARE, BC, SELFPAY | LOC: HWRAD 10:03 | PROVIDERS: ATTENDING PHYSICIAN Internal Medicine; REFERRING PHYSICIAN Internal Medicine Critical Care Medicine | DX: J18.9 Pneumonia, unspecified organism (principal) | CPT/HCPCS: 71046 ==

== ENCOUNTER → 2023-10-01 09:49 | Outpatient (REF) | payer MEDICARE, BC, SELFPAY | LOC: HWRAD 09:49 | PROVIDERS: ATTENDING PHYSICIAN Internal Medicine Critical Care Medicine; FAMILY PHYSICIAN Internal Medicine | DX: J15.20 Pneumonia due to staphylococcus, unspecified (principal) | CPT/HCPCS: 71046 ==

== ENCOUNTER → 2023-12-03 11:22 | Outpatient (REF) | payer MEDICARE, BC, SELFPAY ==
[2023-12-03 15:46] LABS: % Basophils 0.9 % (0-2); % Eosinophils 0.8 % (0-6); % Immature Granulocytes 0.5 % (0-0.5); % Lymphocytes 17.9 % (20.5-51.1); % Monocytes 12.3 % (1.7-9.3); % Neutrophils 67.6 % (42.2-75.2); Absolute Basophils 0.1 10^3/uL (0-0.2); Absolute Eosinophils 0.1 10^3/uL (0-0.7); Absolute Immature Granulocytes 0.1 10^3/uL (0-0.05); Absolute Lymphocytes 1.8 10^3/uL (1.2-3.4); Absolute Monocytes 1.2 10^3/uL (0.1-0.6); Absolute Neutrophils 6.7 10^3/uL (1.4-6.5); Hematocrit 31.7 % (37.0-47.0); Hemoglobin 10.5 g/dL (12.0-16.0); Mean Corp Hgb Conc. 33.1 g/dL (33.0-37.0); Mean Corpuscular Hgb 29.6 pg (27.0-31.0); Mean Corpuscular Volume 89.3 fL (81.0-99.0); Mean Platelet Volume 9.4 fL (7.4-10.4); Nucleated Red Blood Cells % 0 %; Platelet Count 353 10^3/uL (130-400); Red Blood Cell Count 3.55 10^6/uL (4.20-5.40); Red Cell Dist. Width 16.4 % (11.5-14.5)
[2023-12-03 15:55] LABS: ALT (SGPT) 19 U/L (0-35); AST (SGOT) 27 U/L (14-36); Albumin 3.5 g/dl (3.5-5.0); Alkaline Phosphatase 100 U/L (38-126); Blood Urea Nitrogen 34 mg/dl (7-17); Calcium 9.3 mg/dl (8.4-10.2); Carbon Dioxide 28 mmol/L (22-30); Chloride 100 mmol/L (98-107); Glucose 82 mg/dl (70-99); Iron 60 ug/dl (37-170); Potassium 4.6 mmol/L (3.5-5.1); Sodium 141 mmol/L (135-145); Total Bilirubin 0.3 mg/dl (0.2-1.3); Total Protein 7.2 g/dl (6.3-8.2); eGFR > 60.00
[2023-12-03 16:04] LABS: Percent Saturation 24 % (20-50); Total Iron Binding Capacity 247 ug/dl (265-497)
[2023-12-04 09:34] LABS: Glycohemoglobin (HgbA1c) 5.7 % (4.0-5.6)
== END ==
LOC: HWRAD 11:22
PROVIDERS: ATTENDING PHYSICIAN Internal Medicine
DX: M54.16 Radiculopathy, lumbar region (principal); D50.8 Other iron deficiency anemias; D64.9 Anemia, unspecified; E87.1 Hypo-osmolality and hyponatremia; E87.5 Hyperkalemia; R73.09 Other abnormal glucose
CPT/HCPCS: 36415; 72110; 80053; 83036; 83540; 83550; 85025

== ENCOUNTER → 2023-12-26 13:27 | Outpatient (REF) | payer MEDICARE, BC, SELFPAY | LOC: HWRAD 13:27 | PROVIDERS: ATTENDING PHYSICIAN Internal Medicine Critical Care Medicine; FAMILY PHYSICIAN Internal Medicine | DX: J15.20 Pneumonia due to staphylococcus, unspecified (principal) | CPT/HCPCS: 71046 ==

== ENCOUNTER → 2023-12-31 14:22 | Outpatient (REF) | payer MEDICARE, BC, SELFPAY | LOC: HWRAD 14:22 | PROVIDERS: ATTENDING PHYSICIAN Internal Medicine | DX: M81.0 Age-related osteoporosis without current pathological fracture (principal) | CPT/HCPCS: 77080 ==

== ENCOUNTER → 2024-01-14 08:39 | Outpatient (REF) | payer MEDICARE, BC, SELFPAY | LOC: HWLAB 08:39 | PROVIDERS: ATTENDING PHYSICIAN Internal Medicine Critical Care Medicine; FAMILY PHYSICIAN Internal Medicine | DX: J41.8 Mixed simple and mucopurulent chronic bronchitis (principal) | CPT/HCPCS: 87070; 87147; 87205 ==

== ENCOUNTER → 2024-05-26 10:39 | Outpatient (REF) | payer MEDICARE, BC, SELFPAY ==
[2024-05-26 16:27] LABS: % Basophils 1.4 % (0-2); % Eosinophils 1.1 % (0-6); % Immature Granulocytes 0.3 % (0-0.5); % Lymphocytes 29.9 % (20.5-51.1); % Monocytes 16.4 % (1.7-9.3); % Neutrophils 50.9 % (42.2-75.2); Absolute Basophils 0.1 10^3/uL (0-0.2); Absolute Eosinophils 0.1 10^3/uL (0-0.7); Absolute Lymphocytes 1.9 10^3/uL (1.2-3.4); Absolute Monocytes 1.1 10^3/uL (0.1-0.6); Absolute Neutrophils 3.3 10^3/uL (1.4-6.5); Hematocrit 30.5 % (37.0-47.0); Mean Corp Hgb Conc. 32.8 g/dL (33.0-37.0); Mean Corpuscular Hgb 29.3 pg (27.0-31.0); Mean Corpuscular Volume 89.4 fL (81.0-99.0); Mean Platelet Volume 9.6 fL (7.4-10.4); Nucleated Red Blood Cells % 0 %; Platelet Count 384 10^3/uL (130-400); Red Blood Cell Count 3.41 10^6/uL (4.20-5.40); Red Cell Dist. Width 15.7 % (11.5-14.5); White Blood Cell Count 6.5 10^3/uL (4.8-10.8)
[2024-05-26 16:43] LABS: ALT (SGPT) 17 U/L (0-35); AST (SGOT) 24 U/L (14-36); Albumin 3.2 g/dl (3.5-5.0); Alkaline Phosphatase 96 U/L (38-126); Blood Urea Nitrogen 33 mg/dl (7-17); Calcium 8.9 mg/dl (8.4-10.2); Carbon Dioxide 33 mmol/L (22-30); Chloride 97 mmol/L (98-107); Glucose 81 mg/dl (70-99); HDL Cholesterol 47 mg/dl; Iron 56 ug/dl (37-170); LDL Cholesterol, Calculated 55 mg/dl; Potassium 4.7 mmol/L (3.5-5.1); Sodium 134 mmol/L (135-145); Total Bilirubin 0.3 mg/dl (0.2-1.3); Total Cholesterol 116 mg/dl (50-199); Total Protein 7.4 g/dl (6.3-8.2); Triglyceride 72 mg/dl (10-149); Very Low Density Lipoprotein 14 mg/dl (0-30); eGFR 54.19
[2024-05-26 16:52] LABS: Percent Saturation 22 % (20-50); Total Iron Binding Capacity 253 ug/dl (265-497)
[2024-05-26 17:18] LABS: Ferritin 43.7 ng/ml (11.1-264.0)
[2024-05-27 08:28] LABS: Glycohemoglobin (HgbA1c) 5.9 % (4.0-5.6)
== END ==
LOC: HWLAB 10:39
PROVIDERS: ATTENDING PHYSICIAN Internal Medicine
DX: R73.01 Impaired fasting glucose (principal); E78.2 Mixed hyperlipidemia; D64.9 Anemia, unspecified
CPT/HCPCS: 36415; 80053; 80061; 82728; 83036; 83540; 83550; 85025

== ENCOUNTER → 2024-06-13 15:01 | Outpatient (REF) | payer MEDICARE, BC, SELFPAY | LOC: HWRAD 15:01 | PROVIDERS: ATTENDING PHYSICIAN Internal Medicine Critical Care Medicine; FAMILY PHYSICIAN Internal Medicine | DX: J15.20 Pneumonia due to staphylococcus, unspecified (principal) | CPT/HCPCS: 71046 ==

== ENCOUNTER → 2024-07-07 12:12 | Outpatient (REF) | payer MEDICARE, BC, SELFPAY | LOC: HWLAB 12:12 | PROVIDERS: ATTENDING PHYSICIAN Internal Medicine Critical Care Medicine; FAMILY PHYSICIAN Internal Medicine | DX: R05.8 Other specified cough (principal) | CPT/HCPCS: 87070; 87205 ==

== ENCOUNTER 2024-07-12 16:34 | Inpatient (IN) | payer MEDICARE, BC, SELFPAY ==
[2024-07-12] VITALS (14 sets, daily range): BP systolic 122–177; BP diastolic 54–94; PULSE 83–95; BMI 21.8; BMI 21.3
[2024-07-12 11:33] LABS: % Basophils 0.6 % (0-2); % Eosinophils 0.3 % (0-6); % Immature Granulocytes 0.7 % (0-0.5); % Lymphocytes 8.5 % (20.5-51.1); % Monocytes 11.2 % (1.7-9.3); % Neutrophils 78.7 % (42.2-75.2); Absolute Basophils 0.1 10^3/uL (0-0.2); Absolute Immature Granulocytes 0.1 10^3/uL (0-0.05); Absolute Monocytes 1.3 10^3/uL (0.1-0.6); Absolute Neutrophils 9.1 10^3/uL (1.4-6.5); Hematocrit 31.3 % (37.0-47.0); Hemoglobin 10.3 g/dL (12.0-16.0); Mean Corp Hgb Conc. 32.9 g/dL (33.0-37.0); Mean Corpuscular Hgb 28.5 pg (27.0-31.0); Mean Corpuscular Volume 86.7 fL (81.0-99.0); Mean Platelet Volume 8.4 fL (7.4-10.4); Nucleated Red Blood Cells % 0 %; Platelet Count 348 10^3/uL (130-400); Red Blood Cell Count 3.61 10^6/uL (4.20-5.40); Red Cell Dist. Width 14.1 % (11.5-14.5); White Blood Cell Count 11.6 10^3/uL (4.8-10.8)
[2024-07-12 11:45] LABS: ALT (SGPT) 14 U/L (0-35); AST (SGOT) 20 U/L (14-36); Albumin 2.9 g/dl (3.5-5.0); Alkaline Phosphatase 86 U/L (38-126); Blood Urea Nitrogen 21 mg/dl (7-17); Calcium 8.8 mg/dl (8.4-10.2); Carbon Dioxide 31 mmol/L (22-30); Chloride 98 mmol/L (98-107); Estimated Creatinine Clearance 42 ml/min; Glucose 87 mg/dl (70-99); Potassium 4.2 mmol/L (3.5-5.1); Sodium 136 mmol/L (135-145); Total Bilirubin 0.5 mg/dl (0.2-1.3); Total Protein 7.1 g/dl (6.3-8.2); eGFR > 60.00
--- NOTE | 2024-07-12 12:08 | ED.GENMED ---
History of Present Illness
<Nereida Live PA-C - Last Filed: 07/12/24 21:38>
General
Chief Complaint: Dizziness
Source: patient
Exam Limitations: none
Time Seen by Provider: 07/12/24 12:05
Nursing documentation reviewed up to this point in time: agreed with
History of Present Illness
History of Present Illness:
89-year-old female with a past medical history of COPD, chronic pneumonia, pulmonary hypertension, diverticulitis presents emergency department today with concerns of fatigue and episode of dizziness and near syncope. Patient concerned over the
living facility. Patient reports that she is having a bowel movement today when she went to stand up and suddenly felt dizzy, lightheaded, and fell into the wall, hitting the back of her head. At this time, she lowered her self to the ground never
actually had a syncopal episode, she states at that time her walker fell on top of her. At this time, most of her dizziness is resolved and now she notes some mild lightheadedness when she turns her head. She also notes that for the past week, she
has had increasing fatigue and feeling of generally being unwell and ill. She is also had intermittent nausea. She denies any chest pain or new shortness of breath. Patient reports that she has a history of chronic lung disease and states her
cough this past week has gotten a lot worse and she has got no sleep due to this waking her up in the middle of the night. She denies any diarrhea, constipation. She denies any sick contacts. She denies any fevers or chills. Patient states that
she takes Lasix every other day for fluid buildup in her lungs but denies any known history of CHF.
Past History
<Nereida Live PA-C - Last Filed: 07/12/24 21:38>
Past History
ED Past Medical History: HTN, Psychiatric (Anxiety, ), Other (Bronchitis, :Left upper Pneumothorax, Diverticulitis, ) and Other (Chronic sinusitis, chronic cough, lung disease)
ED Past Surgical History: Cholecystectomy, ( X 2), Gynecological and Other (Dental implants, Cataracts, Myringotomy tubes)
Social History
Tobacco: Non-smoker
Alcohol: Occasional
Drug: None
Personal:
Living: alone
Employment: Not employed
Family History
Family History: Other
Review of Systems
<Nereida Live PA-C - Last Filed: 07/12/24 21:38>
Review of Systems
All Other Systems: ROS reviewed and negative except as documented in HPI and ROS
Phy Exam
<CHANDLER Ashby Last Filed: 07/12/24 21:38>
Physical Exam
Physical Exam:
General: Patient is well appearing and in no acute distress; non-toxic
Skin: Warm and dry, no rashes or lesions
Head: Normocephalic, atraumatic
Neck: No tenderness palpation of the cervical spine
Eyes: Sclera non-icteric. EOMs intact.
Cardiac: Regular rate and rhythm, no murmur
Peripheral Vascular: No lower extremity swelling or edema
Pulm: Normal respiratory effort, scattered wheezing and rhonchi heard bilaterally
Abdomen: No abdominal tenderness to palpation
Neuro: CN II-XII intact, no focal neurologic deficits.
Psychiatric: Appropriate mood and affect.
Course
<Nereida Live PA-C - Last Filed: 07/12/24 21:38>
Orders/Labs/Results
Orders:
Orders
07/12/24 11:14
Electrocardiogram (*1) Urgent
Reason for Study: Vertigo / Dizzy
EKG- Treatment ONCE
07/12/24 11:27
Complete Blood Count/With Diff Urgent
Comprehensive Metabolic Panel Urgent
07/12/24 12:21
CT Cervical Spine W/o Iv Contr Urgent
Comment:
Reason For Exam: neck discomfort following fall
CT Head W/o Iv Contrast Urgent
Comment:
Reason For Exam: dizziness, fall
07/12/24 12:23
Ipratropium/Albuterol Sulfate [Duoneb] 3 ml INH R NOW STA
CR Chest - 2 Views Urgent
Comment:
Reason For Exam: fatigue, shortness of breath
07/12/24 12:31
Rectal Temp- Treatment ONCE
07/12/24 12:43
COVID-19 Antigen Urgent
Source: Nasal Swab
Influenza A+B Rapid Molecular Urgent
JAREN Source: Nasal Swab
Specimen Description:
07/12/24 13:45
0.9% Sodium Chloride 500 ml [Nss] 500 ml IV BOLUS
07/12/24 Dinner
Regular
At Your Request: Full Participation
Does patient need a safe tray?: No
07/12/24 15:12
Admit/Transfer Patient As Directed
Co-Sign Provider:
Level of Care: Inpatient admission
Assign to:: Telemetry
Physician / Group: derrick
Diagnosis: copd, atelactasis
Reason for Telemetry: Arrhythmia
Date to Stop Telemetry: 07/15/24
Time to Stop Telemetry: 11:00
Reason for Hospitalization: copd, atelactasis
Expected length of stay greater than two midnights?: Yes
ELOS- Estimated Length of Stay in days: 2
I certify the patient meets the requirements for IP care: Yes
Code Status As Directed
Resuscitation Status: Do not resuscitate
Reached after discussion with pt or family/Healthcare POA: Yes
PRN Pain Medication Management As Directed
May give lesser potent ordered pain med per pt: Yes
preference::
Protocol:: Medication orders for pain may be administered in a
manner that supports deferring to patient preference
when the pt is:
- Requesting an ordered lesser potent pain medication.
Least to most potent pain medications are defined
as: acetaminophen < NSAID < tramadol < opioids
(morphine, oxycodone, hydromorphone).
- Requesting a lesser dose of the same medication IF
ORDERED.
- Requesting a less intrusive route of administration
if both routes are prescribed by the provider (PO <
IV).
07/12/24 15:13
DNR Bracelet Application ONCE
07/12/24 15:16
Add On- LAB Routine
Tests Added?: bnp
07/12/24 16:00
Dexamethasone Sod Phosphate [Decadron] 4 mg IV Q12H
07/12/24 18:03
Ipratropium/Albuterol Sulfate [Duoneb] 3 ml INH R QID
07/12/24 18:03
Activity As Directed
Activity Level: As Tolerated
Vital Signs As Directed
Frequency: Per unit guidelines
DX Deep Vein Thrombosis Video Routine
07/12/24 20:00
Heparin 5,000 units SC Q12
07/13/24 06:00
Complete Blood Count/With Diff IN AM
Comprehensive Metabolic Panel IN AM
07/15/24 11:00
DC Protocol for Telemetry ONCE
Abnormal Lab Results
07/12/24
11:27
WBC 11.6 H 10^3/uL
(4.8-10.8)
RBC 3.61 L 10^6/uL
(4.20-5.40)
Hgb 10.3 L g/dL
(12.0-16.0)
Hct 31.3 L %
(37.0-47.0)
MCHC 32.9 L g/dL
(33.0-37.0)
Abs Immat Gran (auto) 0.1 H 10^3/uL
(0-0.05)
Absolute Neuts (auto) 9.1 H 10^3/uL
(1.4-6.5)
Absolute Lymphs (auto) 1.0 L 10^3/uL
(1.2-3.4)
Absolute Monos (auto) 1.3 H 10^3/uL
(0.1-0.6)
Immature Gran % 0.7 H %
(0-0.5)
Neutrophils % 78.7 H %
(42.2-75.2)
Lymphocytes % 8.5 L %
(20.5-51.1)
Monocytes % 11.2 H %
(1.7-9.3)
Carbon Dioxide 31 H mmol/L
(22-30)
BUN 21 H mg/dl
(7-17)
Albumin 2.9 L g/dl
(3.5-5.0)
07/12/24 11:27
07/12/24 11:27
Vital Signs
Initial and Last Documented VS:
Initial Vital Signs
Temp Pulse Resp BP Pulse Ox
99.1 F 79 20 177/73 94
07/12/24 11:13 07/12/24 11:13 07/12/24 11:13 07/12/24 11:13 07/12/24 11:13
Last Documented Vital Signs
Temp Pulse Resp BP Pulse Ox
98.9 F 78 18 128/57 94
07/12/24 20:15 07/12/24 20:15 07/12/24 20:15 07/12/24 20:15 07/12/24 20:15
Kelvinlt;Wili Roberson, DO - Last Filed: 07/12/24 14:33>
Orders/Labs/Results
Orders:
Orders
07/12/24 11:14
Electrocardiogram (*1) Urgent
Reason for Study: Vertigo / Dizzy
EKG- Treatment ONCE
07/12/24 11:27
Complete Blood Count/With Diff Urgent
Comprehensive Metabolic Panel Urgent
07/12/24 12:21
CT Cervical Spine W/o Iv Contr Urgent
Comment:
Reason For Exam: neck discomfort following fall
CT Head W/o Iv Contrast Urgent
Comment:
Reason For Exam: dizziness, fall
07/12/24 12:23
Ipratropium/Albuterol Sulfate [Duoneb] 3 ml INH R NOW STA
CR Chest - 2 Views Urgent
Comment:
Reason For Exam: fatigue, shortness of breath
07/12/24 12:31
Rectal Temp- Treatment ONCE
07/12/24 12:43
COVID-19 Antigen Urgent
Source: Nasal Swab
Influenza A+B Rapid Molecular Urgent
JAREN Source: Nasal Swab
Specimen Description:
07/12/24 13:45
0.9% Sodium Chloride 500 ml [Nss] 500 ml IV BOLUS
07/12/24 Dinner
Regular
At Your Request: Full Participation
Does patient need a safe tray?: No
07/12/24 15:12
Admit/Transfer Patient As Directed
Co-Sign Provider:
Level of Care: Inpatient admission
Assign to:: Telemetry
Physician / Group: derrick
Diagnosis: copd, atelactasis
Reason for Telemetry: Arrhythmia
Date to Stop Telemetry: 07/15/24
Time to Stop Telemetry: 11:00
Reason for Hospitalization: copd, atelactasis
Expected length of stay greater than two midnights?: Yes
ELOS- Estimated Length of Stay in days: 2
I certify the patient meets the requirements for IP care: Yes
Code Status As Directed
Resuscitation Status: Do not resuscitate
Reached after discussion with pt or family/Healthcare POA: Yes
PRN Pain Medication Management As Directed
May give lesser potent ordered pain med per pt: Yes
preference::
Protocol:: Medication orders for pain may be administered in a
manner that supports deferring to patient preference
when the pt is:
- Requesting an ordered lesser potent pain medication.
Least to most potent pain medications are defined
as: acetaminophen < NSAID < tramadol < opioids
(morphine, oxycodone, hydromorphone).
- Requesting a lesser dose of the same medication IF
ORDERED.
- Requesting a less intrusive route of administration
if both routes are prescribed by the provider (PO <
IV).
07/12/24 15:13
DNR Bracelet Application ONCE
07/12/24 15:16
Add On- LAB Routine
Tests Added?: bnp
07/12/24 16:00
Dexamethasone Sod Phosphate [Decadron] 4 mg IV Q12H
07/12/24 18:03
Ipratropium/Albuterol Sulfate [Duoneb] 3 ml INH R QID
07/12/24 18:03
Activity As Directed
Activity Level: As Tolerated
Vital Signs As Directed
Frequency: Per unit guidelines
DX Deep Vein Thrombosis Video Routine
07/12/24 20:00
Heparin 5,000 units SC Q12
07/13/24 06:00
Complete Blood Count/With Diff IN AM
Comprehensive Metabolic Panel IN AM
07/15/24 11:00
DC Protocol for Telemetry ONCE
Abnormal Lab Results
07/12/24
11:27
WBC 11.6 H 10^3/uL
(4.8-10.8)
RBC 3.61 L 10^6/uL
(4.20-5.40)
Hgb 10.3 L g/dL
(12.0-16.0)
Hct 31.3 L %
(37.0-47.0)
MCHC 32.9 L g/dL
(33.0-37.0)
Abs Immat Gran (auto) 0.1 H 10^3/uL
(0-0.05)
Absolute Neuts (auto) 9.1 H 10^3/uL
(1.4-6.5)
Absolute Lymphs (auto) 1.0 L 10^3/uL
(1.2-3.4)
Absolute Monos (auto) 1.3 H 10^3/uL
(0.1-0.6)
Immature Gran % 0.7 H %
(0-0.5)
Neutrophils % 78.7 H %
(42.2-75.2)
Lymphocytes % 8.5 L %
(20.5-51.1)
Monocytes % 11.2 H %
(1.7-9.3)
Carbon Dioxide 31 H mmol/L
(22-30)
BUN 21 H mg/dl
(7-17)
Albumin 2.9 L g/dl
(3.5-5.0)
07/12/24 11:27
07/12/24 11:27
Vital Signs
Initial and Last Documented VS:
Initial Vital Signs
Temp Pulse Resp BP Pulse Ox
99.1 F 79 20 177/73 94
07/12/24 11:13 07/12/24 11:13 07/12/24 11:13 07/12/24 11:13 07/12/24 11:13
Last Documented Vital Signs
Temp Pulse Resp BP Pulse Ox
98.9 F 78 18 128/57 94
07/12/24 20:15 07/12/24 20:15 07/12/24 20:15 07/12/24 20:15 07/12/24 20:15
kobe;CHANDLER Ashby Last Filed: 07/12/24 21:38>
MDM/Problems Addressed
Differential Diagnosis Includes:
COPD exacerbation, chronic pneumonia exacerbation, acute heart failure, influenza, COVID
MDM/Problems Addressed:
89-year-old female with a past medical history of COPD, chronic pneumonia, pulmonary hypertension, diverticulitis presents emergency department today with concerns of fatigue and episode of dizziness and near syncope.
Patient acutely hypertensive upon arrival to emergency department however however did not take her blood pressure medication this morning. Does have a slightly elevated BUN to creatinine ratio however in light of Lasix usage and fluid buildup,
patient will rehydrate slowly orally and will hold off on IV fluids at this time.
Reviewed case with my attending, will initiate IV fluids, CT scans pending.
CXR appears unchanged from prior. CT head and cervical spine normal. In light of persistent symptoms, will admit to hospitalist for further workup and treatment.
<Nereida Live PA-C - Last Filed: 07/12/24 21:38>
*Pulse Oximetry
Patient hypoxic: no
*Critical Care Note
Total Time (30-74mins, 75-104mins- exclusive of procedures): Not Applicable
ED Attending Note
<Nereida Live PA-C - Last Filed: 07/12/24 21:38>
-
Portions of this chart may have been created with voice recognition software.� Occasional wrong word or��sound alike� substitutions may have occurred due to the inherent limitations of voice recognition software.
<Wili Roberson DO - Last Filed: 07/12/24 14:33>
ED Attending Note
Patient seen and examined by attending physician: Yes
I performed the substantive portion of visit, reviewed & personally made and approve the management plan that is documented in note by myself or VALERY.: Yes
ED Attending Note:
Seen with PA examined independently 89-year-old female with a syncopal event after standing getting off the toilet sounds vasovagal although she clinically looks dehydrated, she suffers from recurrent pneumonia followed by pulmonary several courses
of antibiotics just finished 10 days of doxycycline a few weeks ago, has been coughing and weak, reviewed inpatient or outpatient management, at this point due to her age comorbid conditions living alone for safety. In the hospital consideration
for specialty consultation is a fairly impressive chest x-ray albeit similar to prior
Discharge Plan
Departure
Patient Disposition: Admit
Date of Disposition: 07/12/24
Time of Disposition: 14:46
Admit to: Telemetry
Presentation/result/management discussed w/ accepting MD/DO: Hospitalist
Patient with high blood pressure during this ER visit?: Yes
Condition: Fair
Discharge Problem:
Dizziness, Acute exacerbation of chronic obstructive pulmonary disease
Interventions
Interventions:
*Risk Screen - Suicide Last Done: 07/12/24 18:23
*General Assessment Last Done: 07/12/24 11:13
*Neglect/Abuse Screening Last Done: 07/12/24 11:13
*ED- Fall Risk Assessment Last Done: 07/12/24 11:13
*ED COVID-19 Vaccine History Last Done: 07/12/24 18:23
*Nursing Disposition Last Done: 07/12/24 18:30
ED- Neurological Assessment Last Done: 07/12/24 11:13
ED- Cardiac Assessment Last Done: 07/12/24 11:13
Discharge Date and Time
Discharge Date/Time: 07/12/24 18:00
[2024-07-12] MEDS: DUONEB 3 ML INH (12:46)
[2024-07-12 13:05] LABS: COVID-19 Antigen Negative (Negative)
[2024-07-12] MEDS: NSS 500 IV (14:12)
--- NOTE | 2024-07-12 15:16 | HPS.HSE ---
Family Physician
-
Family Physician: Dotty Astorga
Chief Complaint
-
cough
History of Present Illness
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
diverticulosis, anxiety, hyponatremia, presenting with fatigue and episodes of dizziness and near syncope. She was having a bowel movement today when she went to stand up and suddenly felt dizzy, lightheaded and fell into the wall hitting the back
of her head. She lowered herself to the ground and did not actually pass out and states that the walker fell on top of her. No recent new medications.
At the current time she states the dizziness has resolved. She has been having increased cough for the past few weeks. Cough is bad to the point of waking her up at night. She has been compliant with nebulizers and Mucinex and vest therapy for
atelectasis/mucous plugging. She saw her merchandise manager who started her on doxycycline for 10 days which was only medication which has helped in the past and she did have some improvement but then stopped it due to nausea last week.
She denies chest pain or worsening shortness of breath that is new. Denies diarrhea or constipation. Denies sick contacts. Denies fevers or chills.
No weight gain or swelling.
She never smoked and denies alcohol.
Medical History
Past Medical History
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
diverticulosis, anxiety, hyponatremia)
Past Surgical History: Reports Other (Cholecystectomy, ( X 2), Gynecological and Other (Dental implants, Cataracts, Myringotomy tubes))
Social History
Tobacco: Non-smoker
Alcohol: None
Drug: None
Family History
Family History: Not pertinent
Allergies / Home Medications
Allergies reflects when Allergies were last updated in [facility].
Home Medications with original date entered in [facility]
Allergy/Medication List:
Allergies
Allergy/AdvReac Type Severity Reaction Status Date / Time
codeine Allergy Unknown Verified 07/12/24 11:20
Penicillins Allergy Rash Verified 07/12/24 11:20
Home Medications
hydralazine 10 mg tablet 20 mg PO BID Blood pressure 05/23/21
nadolol 40 mg tablet 40 mg PO DAILY Blood pressure 05/23/21
vit C 250 mg-vit E 90 mg-zinc 40 mg-copper 1 [id number] capsule (PreserVision AREDS-2) 1 tab PO BID Supplement 05/23/21
ipratropium 0.5 mg-albuterol 3 mg (2.5 mg base)/3 mL nebulization soln 3 ml inhalation R BID Lung/breathing issues 07/14/22
paroxetine HCl 20 mg tablet (Paxil) 20 mg PO [facility] 07/14/22
carboxymethylcellulose sodium 0.5 % eye drops (Refresh Tears) 2 drp LEFT EYE BIDPRN PRN dry eyes 07/16/22
budesonide 0.5 mg/2 mL suspension for nebulization 0.5 mg (2 mL) inhalation R BID #0 mL 07/21/22
Budesonide 0.6 mg intranasal DAILY 06/24/23
furosemide 20 mg tablet 20 mg PO Q48H@0800 06/24/23
vancomycin 1 drp RIGHT EYE QID 06/24/23
vancomycin 160 mg intranasal DAILY 06/24/23
amoxicillin 875 mg-potassium clavulanate 125 mg tablet 1 tab PO BID #20 tabs 06/29/23
doxycycline monohydrate 100 mg tablet 100 mg PO BID #20 tabs 06/29/23
guaifenesin 600 mg tablet, extended release 12 hr 1,200 mg (2 x 600 mg) PO Q12 #0 tabs 06/29/23
prednisone 10 mg tablet 10 mg PO DIRECTED #45 tabs 06/29/23
sodium chloride 3 % for nebulization (NebuSal) 4 ml inhalation R BID #120 mL 06/29/23
Review of Systems
-
History Source: Patient
A 12 point ROS was completed and negative except as noted: Yes
Constitutional: Reports No Symptoms
EENT: Reports No Symptoms
Respiratory: Reports See HPI
Cardiac: Reports No Symptoms
Abdomen/GI: Reports No Symptoms
: Reports No Symptoms
Musculoskeletal: Reports No Symptoms
Skin: Reports No Symptoms
Neurological: Reports No Symptoms
Endocrine: Reports No Symptoms
Hematologic/Lymphatic: Reports No Symptoms
Psych: Reports No Symptoms
Physical Exam
Vital Signs
Vital Signs
Temp Pulse Resp BP Pulse Ox
99.0 F 83 31 160/74 93
07/12/24 12:47 07/12/24 15:07 07/12/24 15:07 07/12/24 15:07 07/12/24 15:07
Physical Exam
General: Well Developed, Well Nourished and No Apparent Distress
HEENT: NormoCephalic, Moist mucous membranes and Atraumatic
Respiratory: Other (-Scattered wheezes, rhonchi on examination)
Cardiac: S1/S2 and Regular Rhythm; No Murmur or Rub
GI: Soft, Non Tender, Non Distended and Normal Bowel Sounds; No Organomegaly
Rectal: Deferred by Provider
Musculoskeletal: No Clubbing, No Cyanosis and No Edema
Skin: No Rash
Neuro: Nonfocal/grossly intact
Laboratory Results
-
07/12/24 11:27
07/12/24 11:27
Laboratory Results
Total Bilirubin 0.5 mg/dl (0.2-1.3) 07/12/24 11:27
AST 20 U/L (14-36) 07/12/24 11:27
ALT 14 U/L (0-35) 07/12/24 11:27
Alkaline Phosphatase 86 U/L (38-126) 07/12/24 11:27
Data Reviewed
-
Lab Data: Labs Reviewed by me
Old Records: Reviewed
Impression/Plan
-
IMPRESSION:
PLAN:
# Presyncopal episode likely secondary to orthostatic hypotension
- Check orthostatic vital signs
- IV fluids given
- Now hypertensive blood pressure 160s
# Worsening cough secondary to progressive left hemithorax atelectasis/mucous plugging versus acute on chronic COPD exacerbation
-Scattered wheezes, rhonchi on examination
-Chest x-ray shows marked chronic volume loss in left hemithorax with shift of heart mediastinum to the left, subtotal opacification of the left chest increased in comparison to prior studies previously seen bronchiectasis/atelectasis
-COVID and flu negative
-Continue nebulizers, vest therapy, Mucinex, Hypersal
- She is on chronic prednisone, will start dexamethasone 4 mg twice daily to treat COPD exacerbation
-Not hypoxemic
- Pulmonary consulted
Pulmonary hypertension
- Check cardiac BNP
- Continue Lasix
Chronic normocytic anemia
- Hemoglobin stable
Essential hypertension
- Continue nadolol, hydralazine
Thyroid mass
Chronic right eyelid droop
Ophthalmic treatment cell cancer
Chronic subdural hematoma
Diverticulosis
Anxiety
- Continue paroxetine
History of hyponatremia
DNR/DNI
DVT prophylaxis�heparin
Regular diet
[2024-07-12] MEDS: DECADRON 4 MG IV (16:39)
[2024-07-12] MEDS: DUONEB INH (18:21)
[2024-07-12] MEDS: HEPARIN 5000 UNITS SC (20:55)
[2024-07-12] MEDS: APRESOLINE 50 MG PO (20:55)
[2024-07-12] MEDS: OCUVITE SOFTGEL 1 CAP PO (20:55)
[2024-07-13] MEDS: SODIUM CHLORIDE 3% FOR INHALATION INH (01:07)
[2024-07-13] MEDS: DUONEB INH (01:07)
[2024-07-13] MEDS: DECADRON 4 MG IV ×2 (03:20→15:58)
[2024-07-13 03:49] VITALS: BP 159/73
[2024-07-13 07:45] VITALS: BP 110/72
[2024-07-13 07:47] LABS: % Basophils 0.2 % (0-2); % Immature Granulocytes 0.5 % (0-0.5); % Lymphocytes 11.5 % (20.5-51.1); % Monocytes 0.9 % (1.7-9.3); % Neutrophils 86.9 % (42.2-75.2); Absolute Lymphocytes 0.7 10^3/uL (1.2-3.4); Absolute Monocytes 0.1 10^3/uL (0.1-0.6); Absolute Neutrophils 5.6 10^3/uL (1.4-6.5); Hematocrit 32.1 % (37.0-47.0); Hemoglobin 10.6 g/dL (12.0-16.0); Mean Corpuscular Hgb 28.3 pg (27.0-31.0); Mean Corpuscular Volume 85.8 fL (81.0-99.0); Mean Platelet Volume 8.9 fL (7.4-10.4); Nucleated Red Blood Cells % 0 %; Platelet Count 389 10^3/uL (130-400); Red Blood Cell Count 3.74 10^6/uL (4.20-5.40); Red Cell Dist. Width 14.1 % (11.5-14.5); White Blood Cell Count 6.4 10^3/uL (4.8-10.8)
[2024-07-13 07:49] LABS: ALT (SGPT) 16 U/L (0-35); AST (SGOT) 20 U/L (14-36); Albumin 3.3 g/dl (3.5-5.0); Alkaline Phosphatase 100 U/L (38-126); Blood Urea Nitrogen 25 mg/dl (7-17); Carbon Dioxide 25 mmol/L (22-30); Chloride 101 mmol/L (98-107); Estimated Creatinine Clearance 37 ml/min; Glucose 132 mg/dl (70-99); Potassium 4.6 mmol/L (3.5-5.1); Sodium 138 mmol/L (135-145); Total Bilirubin 0.3 mg/dl (0.2-1.3); Total Protein 7.8 g/dl (6.3-8.2); eGFR > 60.00
[2024-07-13] MEDS: PAXIL 20 MG PO (08:16)
[2024-07-13] MEDS: OCUVITE SOFTGEL 1 CAP PO ×2 (08:16→20:17)
[2024-07-13] MEDS: PEPCID 20 MG PO (08:16)
[2024-07-13] MEDS: APRESOLINE 50 MG PO ×2 (08:16→20:17)
[2024-07-13] MEDS: HEPARIN 5000 UNITS SC ×2 (08:16→20:18)
[2024-07-13] MEDS: MUCINEX 1200 MG PO (08:16)
[2024-07-13] MEDS: LASIX 20 MG PO (08:16)
[2024-07-13] MEDS: CORGARD 40 MG PO (08:19)
[2024-07-13] MEDS: SODIUM CHLORIDE 3% FOR INHALATION 1 VIAL INH ×2 (08:23→19:22)
[2024-07-13] MEDS: DUONEB 3 ML INH ×4 (08:23→19:15)
--- NOTE | 2024-07-13 08:30 | W.PN.HOSP.TC ---
Today's Communication/Plan
-
added mucomyst- pulm consult
Assessment / Plan
Assessment / Plan
Impression:
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
diverticulosis, anxiety, hyponatremia, presenting with fatigue and episodes of dizziness and near syncope. She was having a bowel movement today when she went to stand up and suddenly felt dizzy, lightheaded and fell into the wall hitting the back
of her head. Admitted for presyncope possible secondary to orthostatics and treated for COPD exacerbation versus mucous plug.
Assessment/plan:
Presyncopal episode likely secondary to orthostatic hypotension
- Check orthostatic vital signs
- IV fluids given
- Hypertensive, resumed home med.
CT head/CT cervical spine shows no acute finding
PT/OT consult.
Acute on chronic COPD exacerbation.
Patient with worsening cough secondary to progressive left hemithorax atelectasis/mucous plugging versus acute on chronic COPD exacerbation
-Scattered wheezes, rhonchi on examination
-Chest x-ray shows marked chronic volume loss in left hemithorax with shift of heart mediastinum to the left, subtotal opacification of the left chest increased in comparison to prior studies previously seen bronchiectasis/atelectasis
-COVID and flu negative
-Continue nebulizers, vest therapy, Mucinex, Hypersal
Added Mucomyst
Continue dexamethasone
- Pulmonary consulted
Pulmonary hypertension
- Check cardiac BNP
- Continue Lasix
Chronic normocytic anemia
- Hemoglobin stable
Essential hypertension
- Continue nadolol, hydralazine
Anxiety
- Continue paroxetine
History of hyponatremia
Sodium normal
CODE STATUS: DNI/DNR
DVT prophylaxis: Heparin
Diet: Regular diet
Disposition: added mucomyst- pulm consult
Total time spent on today's encounter was 65 minutes which included time spent in counseling the patient/family regarding diagnosis and treatment plan as listed above, goals of care, and symptom management. Case was discussed with nursing staff,
specialists, and care coordinators/case management. All labs and imaging personally reviewed by me. Remainder the time spent in detailed review of previous records, lab data, imaging, and other medical provider documentation.
Anticipated Discharge: > 48 hours
Subjective/Interval History
-
Date of Service: July 13, 2024
Patient seen and examined at bedside, denies any chest pain , denies any dizziness, still coughing and shortness of breath slightly improved, no abdominal pain, no nausea, no vomiting, no diarrhea or constipation.
lower extremity edema improved.
Objective Data
-
Labs:
Laboratory Results
07/13/24 07/13/24
06:51 06:52
WBC 6.4
Hgb 10.6 L
Hct 32.1 L
Plt Count 389
Sodium 138
Potassium 4.6
Chloride 101
Carbon Dioxide 25
BUN 25 H
Creatinine 0.9
Glucose 132 H
Calcium 9.0
Total Bilirubin 0.3
AST 20
ALT 16
Alkaline Phosphatase 100
Vital Signs:
Vital Signs
Temp Pulse Resp BP Pulse Ox
98.1 F 77 18 110/72 95
07/13/24 03:49 07/13/24 08:16 07/13/24 03:49 07/13/24 08:16 07/13/24 03:49
I&O
07/12/24 07/13/24 07/14/24
06:59 06:59 06:59
Intake Total 240 / 240
Balance 240 / 240
Physical Exam
-
General: Well Developed, Well Nourished, No Apparent Distress and Comfortable
HEENT: Normocephalic, Atraumatic, Moist Mucous Membranes, No Ptosis, PERRLA and Nose Appears Normal
Respiratory: Wheezes, Rales, Rhonchi, Crackles and Non Labored Respirations
Cardiac: Regular Rhythm and S1/S2
Breast: Deferred by me
GI: Soft, Nontender, Nondistended and Normal Bowel Sounds
Genito-urinary: No Costovertebral Tender
Musculoskeletal: No Clubbing, No Cyanosis and No Edema
Skin: Warm
Neuro: Awake, Alert, Oriented, AO x 3 and No Motor Deficits
Psych: Calm
Data Reviewed
-
Diagnostic Radiology: Image personally visualized and interpreted and Report Reviewed by me
CT Scan: Image personally visualized and interpreted and Report Reviewed by me
Ultrasound: Image personally visualized and interpreted and Report Reviewed by me
MRI: Image personally visualized and interpreted and Report Reviewed by me
Medical Tests (Nuc Med, Echo etc): Image personally visualized and interpreted and Report Reviewed by me
Labs: Labs Reviewed by me
Old Records: Reviewed
[2024-07-13 11:00] VITALS: BP 118/59
[2024-07-13] MEDS: MUCOMYST 10% 2 ML INH ×3 (11:40→19:15)
[2024-07-13 15:00] VITALS: BP 137/63
--- NOTE | 2024-07-13 15:27 | CON.PUL ---
Consultation
Consultation Request
Date/Time Consultation Requested: 07/12/2024 - 2221
Date/Time Consultation Performed: 07/13/2024 - 1014
Requesting Provider: Dr. Feliciano
Performing Provider: Dr. Loja
Reason for Consultation: COPD exacerbation
Medical History
-
Chief Complaint: Dizziness after BM
History of Present Illness:
89-year-old female with a past medical history of COPD, chronic left-sided pneumonia with recently diagnosed MSSA s/p doxycycline, hypertension, history of subdural hematoma s/p fall (04/04), thyroid mass (biopsy negative), chronic bronchitis and
bullous pemphigoid who presents with near syncopal episode. Patient had a bowel movement and went to stand up and felt dizzy, lightheaded and fell to the wall hitting the back of her head. She lowered her self to the ground and states the walker
fell on top of her; she denies LOC. When she came into the hospital her dizziness had resolved. She has endorsed a worsening cough for the last few weeks and is waking her up at nighttime. She has been using her nebulizers, Mucinex and vest
therapy. She has had no worsening SOB. In the ER she was afebrile to 99.1 �F, pulse rate 79, respiratory rate 20, BP 177/73 and saturating 94% on room air. Labs pertinent for WBC 11.6, Hb 10.3, and COVID-19 antigen negative. Flu swab was
negative and CXR showed similar findings compared to prior CXR on 06/13/2024. Her right lung appears normal. In the ER she was given DuoNebs +500 cc bolus of NS 0.9%. She was admitted to the hospitalist service and now pulmonary consulted for
additional management/recommendations.
When I saw the patient today, she says she feels much better. She attributes this to being on the IV steroids which is giving her a jolt of energy. She denies any preceding fevers or chills or sick contacts. Prior to coming to the hospital, she
has been feeling much more tired and she says it is likely due to her cough which tires her out very much so. She currently denies chest pain, GRAHAM, nausea, fevers or chills.
PMHx: Moderate COPD (via spirometry from 12/2021), chronic left-sided pneumonia, hypertension, IBS, history of basal cell carcinoma s/p Mohs surgery (2007), nasal surgery, bullous pemphigoid, hyperlipidemia, history of subdural hematoma (due to fall
� March 2023), thyroid mass, chronic bronchitis
PSHx: section, cholecystectomy, cataract surgery, Mohs surgery, right myringotomy (March 2018), bronchoscopy (05/2021)
Past Medical History
Past Medical History: Other (Above as per HPI)
Past Surgical History: Other (Above as per HPI)
Social History
Tobacco: Non-smoker
Alcohol: None
Drug: None
Personal:
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
Family History
Family History: Cancer (Father: Colon cancer), Hypertension (Mother) and Other (Mother: Aortic aneurysm; father: COPD)
Allergies / Home Medications
Allergies
Allergy/AdvReac Type Severity Reaction Status Date / Time
codeine Allergy Unknown Verified 07/12/24 11:20
Penicillins Allergy Rash Verified 07/12/24 11:20
Home Medications
�Medication �Instructions �Recorded �Confirmed �Last Taken �Type
nadolol 40 mg tablet 40 mg PO DAILY Blood pressure 05/23/21 07/12/24 07/11/24 History
vit C 250 mg-vit E 90 mg-zinc 40 1 tab PO BID Supplement 05/23/21 07/12/24 07/11/24 History
mg-copper 1 [id number]
capsule (PreserVision AREDS-2)
ipratropium 0.5 mg-albuterol 3 mg 3 ml inhalation R BID 07/14/22 07/12/24 07/12/24 History
(2.5 mg base)/3 mL nebulization Lung/breathing issues
soln
paroxetine HCl 20 mg tablet (Paxil) 20 mg PO DAILY Mental Health 07/14/22 07/12/24 07/11/24 History
furosemide 20 mg tablet 20 mg PO Q48H@0800 Fluid 06/24/23 07/12/24 07/10/24 History
Retention/Swelling
sodium chloride 3 % for 4 ml inhalation R BID #120 mL 06/29/23 07/12/24 07/12/24 Rx
nebulization (NebuSal)
famotidine 20 mg tablet 20 mg PO DAILY Gastrointestinal 07/12/24 07/12/24 07/12/24 History
Issue
guaifenesin 600 mg tablet, 1,200 mg PO DAILY Congestion 07/12/24 07/12/24 07/11/24 History
extended release 12 hr
hydralazine 50 mg tablet 50 mg PO BID Blood Pressure 07/12/24 07/12/24 07/11/24 History
prednisone 10 mg tablet 10 mg PO Q48H Anti-Inflammatory 07/12/24 07/12/24 07/10/24 History
prednisone 5 mg tablet 5 mg PO Q48H Anti-Inflammatory 07/12/24 07/12/24 07/11/24 History
risedronate 150 mg tablet 150 mg PO QMONTH BONE 07/12/24 07/12/24 06/13/24 History
Review of Systems
-
History Source: Patient
All other systems: Negative unless noted
Vitals / Labs / Diagnostic Testing
Vital Signs
Temp Pulse Resp BP Pulse Ox
98.1 F 77 16 110/72 95
07/13/24 03:49 07/13/24 08:30 07/13/24 08:30 07/13/24 08:16 07/13/24 08:30
Lab Data
07/13/24 06:52
07/13/24 06:51
Microbiology
07/12/24 12:43 Nasal Swab Influenza Types A & B (XIMENA) - Final
Negative for Influenza A & B, NAAT
Negative results must be combined with clinical observations
and patient history.
Nucleic Acid Amplification test (NAAT)performed on the
[employer] platform.
Diagnostic Testing:
Physical Exam
-
HEENT: Normocephalic and Anicteric
Cardiovascular: S1/S2 and Peripheral Edema (Trace lower extremity edema bilaterally)
Respiratory: Wheeze (negative), Rales (Bilaterally), Rhonchi (Bilaterally) and Non-Labored Respirations
GI: Soft, Non Distended, Non Tender and Normal Bowel Sounds
Neurology: AO x 3 and Tremors (negative)
Skin: Warm and Dry
General: Respiratory Distress (negative), Comfortable, Fever (negative) and Chills (negative)
Assessment
-
Assessment: 89-year-old female with a past medical history of COPD, chronic left-sided pneumonia with recently diagnosed MSSA s/p doxycycline, hypertension, history of subdural hematoma s/p fall (04/04), thyroid mass (biopsy negative), chronic
bronchitis and bullous pemphigoid who presents with near syncopal episode. Patient had a bowel movement and went to stand up and felt dizzy, lightheaded and fell to the wall hitting the back of her head. She lowered her self to the ground and
states the walker fell on top of her; she denies LOC. When she came into the hospital her dizziness had resolved. She has endorsed a worsening cough for the last few weeks and is waking her up at nighttime. She has been using her nebulizers,
Mucinex and vest therapy. She has had no worsening SOB. In the ER she was afebrile to 99.1 �F, pulse rate 79, respiratory rate 20, BP 177/73 and saturating 94% on room air. Labs pertinent for WBC 11.6, Hb 10.3, and COVID-19 antigen negative. Flu
swab was negative and CXR showed similar findings compared to prior CXR on 06/13/2024. Her right lung appears normal. In the ER she was given DuoNebs +500 cc bolus of NS 0.9%. She was admitted to the hospitalist service and now pulmonary consulted
for additional management/recommendations.
Chronic conditions [employer]: Moderate COPD (via spirometry from 12/2021), chronic left-sided pneumonia, hypertension, IBS, history of basal cell carcinoma s/p Mohs surgery (2007), nasal surgery, bullous pemphigoid, hyperlipidemia, history of subdural
hematoma (due to fallMarch 2023), thyroid mass, chronic bronchitis
Impression:
#Vasovagal episode vs orthostatic hypotension with pre-syncope
#History of chronic left-sided pneumonia with recent bronchoscopy in June 2024 positive for MSSA s/p doxycycline
#Chronic left hemithorax opacification due to mucous plugging via retained secretions with poor expectoration with chronic pneumonia
#Moderate COPD with PFTs in May 2023 consistent with asthma on chronic prednisone- currently in an acute exacerbation
#Positive MRSA screen via nares
#Chronic rhinitis
#Chronic anemia (baseline Hb 9.5 - 11)
#Chronic hyponatremia
#History of pulmonary hypertension with PASP moderately elevated at 41 mmHg via echo from 02/2021
Plan:
- As an outpatient, patient follows with Dr. Abraham, and is on airway clearance regimen including 3% saline, albuterol, budesonide and uses SmartVest. Also on chronic steroids alternating between 10 mg and 5 mg
- She wishes to continue vest therapy while she is hospitalized
- Maintain SpO2 88-95% with supplemental O2 as needed
- Of note, her last spirometry from 12/22/2021 showed a persistent moderate obstructive lung defect with a significant bronchodilator response. However prior PFTs from 05/19/2021 showed a completely reversible of a moderate obstructive lung defect
with significant bronchodilator response, mild restriction and normalization of a moderate gas exchange capacity defect, and this constellation of findings is highly suspicious for asthma
- Continue with systemic steroids and wean as she clinically improves - currently on Decadron 4 mg IV q12hr
- Continue DuoNebs QID, nebulized 3% BID, mucomyst 10% QID and mucinex; add budesonide as she uses this at home
- prn nebulized bronchodilators - not currently bronchospastic
- Continue to monitor off antibiotics and trend WBC and monitor for fevers
- If she does spike a fever then rothman-culture first and consider starting empiric antibiotics
- Given suspected orthostatic hypotension that brought the patient in, recommend to check orthostatic vital signs prior to discharge
- Incentive spirometer encouraged q1hr while awake
- Replete electrolytes with K>4, Mg>2
- Trend H/H and transfuse if needed to keep Hb>7g/dL; keep plt>20k, unless there is concern for bleeding then keep plt>50k
- Maintain euglycemia with goal BG >100 and <180
- DVT ppx: HSQ
Code status: DNR/DNI
Pulmonary service will continue to follow along. Will ensure that we have outpatient pulmonary office follow-up with Dr. Abraham as her next appointment as of now is 11/12/2024 - this will be moved up.
Data:
CXR 07/12/2024:
Marked chronic volume loss in the left hemithorax with shift of heart mediastinum to the left without significant change.
Subtotal opacification of the left chest, increased in comparison to prior studies with previously seen area suspicious for bronchiectasis/atelectasis on prior radiographs.
Total time spent today was 62 minutes for this encounter. Time includes reviewing laboratory test/imaging results, reviewing pertinent medical records, obtaining and reviewing medical history, performing an appropriate exam, ordering medications,
tests and procedures. Time also includes documentation of this encounter, coordinating patient care and communicating with other healthcare professionals. Total time does not include separately billed tests performed on this date of service.
[2024-07-13] MEDS: ROBITUSSIN DM 10 ML PO ×2 (16:19→22:49)
[2024-07-13 19:59] VITALS: BP 159/69
[2024-07-13] MEDS: MUCINEX 600 MG PO (20:17)
[2024-07-13] MEDS: PULMICORT 0.5 MG INH (21:10)
[2024-07-13 23:00] VITALS: BP 168/73
[2024-07-14] VITALS (8 sets, daily range): BP systolic 145–196; BP diastolic 70–97; PULSE 74; O2SAT 96
[2024-07-14] MEDS: APRESOLINE 2.5 MG IV ×2 (03:30→04:16)
[2024-07-14] MEDS: DECADRON 4 MG IV (05:04)
[2024-07-14] MEDS: DUONEB 3 ML INH ×3 (07:18→15:15)
[2024-07-14] MEDS: MUCOMYST 10% 2 ML INH ×3 (07:20→15:16)
[2024-07-14] MEDS: PULMICORT 0.5 MG INH (07:46)
[2024-07-14] MEDS: SODIUM CHLORIDE 3% FOR INHALATION 1 VIAL INH (07:47)
[2024-07-14 07:58] LABS: Hematocrit 31.8 % (37.0-47.0); Hemoglobin 10.6 g/dL (12.0-16.0); Mean Corp Hgb Conc. 33.3 g/dL (33.0-37.0); Mean Corpuscular Hgb 28.5 pg (27.0-31.0); Mean Corpuscular Volume 85.5 fL (81.0-99.0); Mean Platelet Volume 8.8 fL (7.4-10.4); Platelet Count 402 10^3/uL (130-400); Red Blood Cell Count 3.72 10^6/uL (4.20-5.40); Red Cell Dist. Width 13.7 % (11.5-14.5); White Blood Cell Count 6.2 10^3/uL (4.8-10.8)
[2024-07-14 08:21] LABS: Blood Urea Nitrogen 27 mg/dl (7-17); Carbon Dioxide 27 mmol/L (22-30); Chloride 101 mmol/L (98-107); Estimated Creatinine Clearance 42 ml/min; Glucose 139 mg/dl (70-99); Potassium 4.6 mmol/L (3.5-5.1); Sodium 137 mmol/L (135-145); eGFR > 60.00
[2024-07-14] MEDS: OCUVITE SOFTGEL 1 CAP PO (08:49)
[2024-07-14] MEDS: HEPARIN 5000 UNITS SC (08:49)
[2024-07-14] MEDS: PEPCID 20 MG PO (08:49)
[2024-07-14] MEDS: APRESOLINE 50 MG PO (08:49)
[2024-07-14] MEDS: PAXIL 20 MG PO (08:49)
[2024-07-14] MEDS: MUCINEX 600 MG PO (08:49)
[2024-07-14] MEDS: CORGARD 40 MG PO (08:49)
--- NOTE | 2024-07-14 10:43 | CM ---
Addendum entered by Devora Caban 07/14/24 15:57:
Patient for discharge today, IMM reviewed verbally, provided with copy, placed in chart. Daughter to transport home.
[facility]
Original Note:
CM reviewed chart, patient seen bedside, initial assessment completed. Patient resides at [facility], current with [facility], reports SNF in past. Patient reports using a RW for ambulation. Per PT recommendations- no skilled need.
Patient confirms PCP Dotty Astorga, pharmacy [facility], confirms prescription coverage. Patient reports her daughter will provide transportation home when stable for discharge. CM will continue to follow for all discharge planning
needs.
Plan; return to [facility] with [facility]
--- NOTE | 2024-07-14 13:49 | W.PN.HOSP.TC ---
Today's Communication/Plan
-
await pulm input
Continue with bronchodilators
Continue with steroids
Monitor blood pressure improved
Assessment / Plan
Assessment / Plan
Impression:
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
diverticulosis, anxiety, hyponatremia, presenting with fatigue and episodes of dizziness and near syncope. She was having a bowel movement today when she went to stand up and suddenly felt dizzy, lightheaded and fell into the wall hitting the back
of her head. Admitted for presyncope possible secondary to orthostatics and treated for COPD exacerbation versus mucous plug.
Assessment/plan:
Presyncopal episode likely secondary to orthostatic hypotension
- Check orthostatic vital signs-negative
- IV fluids given
- Hypertensive, resumed home med. BP improved
CT head/CT cervical spine shows no acute finding
PT/OT consult.
Acute on chronic COPD exacerbation.
Patient with worsening cough secondary to progressive left hemithorax atelectasis/mucous plugging versus acute on chronic COPD exacerbation on admission
-Chest x-ray shows marked chronic volume loss in left hemithorax with shift of heart mediastinum to the left, subtotal opacification of the left chest increased in comparison to prior studies previously seen bronchiectasis/atelectasis
-COVID and flu negative
-Continue nebulizers, vest therapy, Mucinex, Hypersal, budenoside
Added Mucomyst
Continue dexamethasone
- Pulmonary consulted
Pulmonary hypertension
- Continue Lasix
Chronic normocytic anemia
- Hemoglobin stable
Essential hypertension
- Continue nadolol, hydralazine
Anxiety
- Continue paroxetine
History of hyponatremia
Sodium normal
CODE STATUS: DNI/DNR
DVT prophylaxis: Heparin
PT-return home.
Anticipated Discharge: Within 24 hours
Subjective/Interval History
-
Date of Service: July 14, 2024
BP elevated overnight has improved now
did walked around without any difficulty earlier today
on room air currently
states feeling significantly better
Objective Data
-
Labs:
Laboratory Results
07/14/24
07:22
WBC 6.2
Hgb 10.6 L
Hct 31.8 L
Plt Count 402 H
Sodium 137
Potassium 4.6
Chloride 101
Carbon Dioxide 27
BUN 27 H
Creatinine 0.8
Glucose 139 H
Calcium 9.0
Vital Signs:
Vital Signs
Temp Pulse Resp BP Pulse Ox
97.4 F 77 16 145/70 94
07/14/24 11:00 07/14/24 11:31 07/14/24 11:31 07/14/24 11:00 07/14/24 11:31
I&O
07/13/24 07/14/24 07/15/24
06:59 06:59 06:59
Intake Total 240 / 240 1060 / 1060 480 / 480
Balance 240 / 240 1060 / 1060 480 / 480
Physical Exam
-
General: Well Developed, Well Nourished, No Apparent Distress and Comfortable
HEENT: Normocephalic, Atraumatic, Moist Mucous Membranes, No Ptosis and Nose Appears Normal; Negative Oxygen
Respiratory: Wheezes and Non Labored Respirations
Cardiac: Regular Rhythm and S1/S2
Breast: Deferred by me
GI: Soft, Nontender, Nondistended and Normal Bowel Sounds
Genito-urinary: No Costovertebral Tender
Musculoskeletal: No Clubbing, No Cyanosis and No Edema
Skin: Warm
Neuro: Awake, Alert, Oriented, AO x 3 and No Motor Deficits
Psych: Calm
--- NOTE | 2024-07-14 14:50 | W.PN.PUL3 ---
Today's Communication / Plan
-
Discontinue systemic corticosteroids
Patient will restart outpatient regimen as before admission.
Back to her usual prednisone dose
Discharged with outpatient follow-up in 2 weeks in our office.
Sign off.
Assessment
-
Assessment: 89-year-old female with a past medical history of COPD, chronic left-sided pneumonia with recently diagnosed MSSA s/p doxycycline, hypertension, history of subdural hematoma s/p fall (04/04), thyroid mass (biopsy negative), chronic
bronchitis and bullous pemphigoid who presents with near syncopal episode. Patient had a bowel movement and went to stand up and felt dizzy, lightheaded and fell to the wall hitting the back of her head. She lowered her self to the ground and
states the walker fell on top of her; she denies LOC. When she came into the hospital her dizziness had resolved. She has endorsed a worsening cough for the last few weeks and is waking her up at nighttime. She has been using her nebulizers,
Mucinex and vest therapy. She has had no worsening SOB. In the ER she was afebrile to 99.1 �F, pulse rate 79, respiratory rate 20, BP 177/73 and saturating 94% on room air. Labs pertinent for WBC 11.6, Hb 10.3, and COVID-19 antigen negative. Flu
swab was negative and CXR showed similar findings compared to prior CXR on 06/13/2024. Her right lung appears normal. In the ER she was given DuoNebs +500 cc bolus of NS 0.9%. She was admitted to the hospitalist service and now pulmonary consulted
for additional management/recommendations.
Chronic conditions CARETAKER: Moderate COPD (via spirometry from 12/2021), chronic left-sided pneumonia, hypertension, IBS, history of basal cell carcinoma s/p Mohs surgery (2007), nasal surgery, bullous pemphigoid, hyperlipidemia, history of subdural
hematoma (due to fall � March 2023), thyroid mass, chronic bronchitis
Impression:
#Vasovagal episode vs orthostatic hypotension with pre-syncope
#History of chronic left-sided pneumonia with recent bronchoscopy in June 2024 positive for MSSA s/p doxycycline
#Chronic left hemithorax opacification due to mucous plugging via retained secretions with poor expectoration with chronic pneumonia
#Moderate COPD with PFTs in May 2023 consistent with asthma on chronic prednisone- currently in an acute exacerbation
#Positive MRSA screen via nares
#Chronic rhinitis
#Chronic anemia (baseline Hb 9.5 - 11)
#Chronic hyponatremia
#History of pulmonary hypertension with PASP moderately elevated at 41 mmHg via echo from 02/2021
Plan:
- As an outpatient, patient follows with Dr. Abraham, and is on airway clearance regimen including 3% saline, albuterol, budesonide and uses SmartVest. Also on chronic steroids alternating between 10 mg and 5 mg
- She wishes to continue vest therapy while she is hospitalized
- Maintain SpO2 88-95% with supplemental O2 as needed-currently on room air.
- Of note, her last spirometry from 12/22/2021 showed a persistent moderate obstructive lung defect with a significant bronchodilator response. However prior PFTs from 05/19/2021 showed a completely reversible of a moderate obstructive lung defect
with significant bronchodilator response, mild restriction and normalization of a moderate gas exchange capacity defect.
- Continue DuoNebs QID, nebulized 3% BID, mucomyst 10% QID and mucinex, budesonide as she uses this at home-she will continue with same regimen as prior admission.
- prn nebulized bronchodilators - not currently bronchospastic
Discontinue systemic corticosteroids-back to her baseline. She will go back to her usual dose.
-
Sputum culture with normal respiratory jose juan. Patient does not appear toxic
- Continue to monitor off antibiotics and trend WBC and monitor for fevers
-No indication for antibiotic therapy.
- Given suspected orthostatic hypotension that brought the patient in, recommend to check orthostatic vital signs prior to discharge
- Incentive spirometer encouraged q1hr while awake
-Should continue at home.
- DVT ppx: HSQ
Code status: DNR/DNI
Okay to discharge from my perspective. Sign off
Will ensure that we have outpatient pulmonary office follow-up with Dr. Abraham as her next appointment as of now is 11/12/2024 - this will be moved up.
Data:
CXR 07/12/2024:
Marked chronic volume loss in the left hemithorax with shift of heart mediastinum to the left without significant change.
Subtotal opacification of the left chest, increased in comparison to prior studies with previously seen area suspicious for bronchiectasis/atelectasis on prior radiographs.
Total time spent today was 62 minutes for this encounter. Time includes reviewing laboratory test/imaging results, reviewing pertinent medical records, obtaining and reviewing medical history, performing an appropriate exam, ordering medications,
tests and procedures. Time also includes documentation of this encounter, coordinating patient care and communicating with other healthcare professionals. Total time does not include separately billed tests performed on this date of service.
Subjective Data
-
Date of Service:
Date of Service: July 14, 2024
Objective Data
Data Reviewed
Vital Signs / I&O / Oxygen:
Vital Signs
Temp Pulse Resp BP Pulse Ox
97.4 F 77 16 145/70 94
07/14/24 11:00 07/14/24 11:31 07/14/24 11:31 07/14/24 11:00 07/14/24 11:31
Intake and Output
07/13/24 07/14/24 07/15/24
06:59 06:59 06:59
Intake Total 240 / 240 1060 / 1060 480 / 480
Balance 240 / 240 1060 / 1060 480 / 480
SaO2 94
Labs/Micro/Reports
Lab Data
07/14/24 07:22
07/14/24 07:22
Microbiology
07/12/24 12:43 Nasal Swab Influenza Types A & B (XIMENA) - Final
Negative for Influenza A & B, NAAT
Negative results must be combined with clinical observations
and patient history.
Nucleic Acid Amplification test (NAAT)performed on the
[employer] ID NOW platform.
--- NOTE | 2024-07-14 15:13 | W.DCSUMMARY ---
Discharge Summary
Discharge Data
Date of Admission: 07/12/24
Date of Discharge: 07/14/24
-
Pending Results: No
Hospital Course
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
diverticulosis, anxiety, hyponatremia, presenting with fatigue and episodes of dizziness and near syncope. She was having a bowel movement t when she went to stand up and suddenly felt dizzy, lightheaded and fell into the wall hitting the back of
her head. Admitted for presyncope possible secondary to orthostatics and treated for COPD exacerbation versus mucous plug. Pulmonary was consulted. Patient was on IV steroids. Patient was continued on bronchodilators and Mucinex. Patient
symptomology significantly improved. Orthostatic were negative. Patient blood pressure was monitored which was elevated which improved with home regimen. Patient was also eval by physical therapy. Patient was on room air throughout
hospitalization. Patient was feeling significantly better. Discussed with pulmonary on day of discharge with with plan to continue home bronchodilators and nebulizer regimen and chronic prednisone regimen. No plan for additional steroids.
Patient will follow-up with his outpatient primary radio despatcher.
Discharge Plan
-
Patient Disposition: Home with Home Care
Discharge Diagnosis/Procedures: Presyncope
Coughing w/likely mild acute on chronic COPD exacerbation
Chronic left-sided pneumonia
Condition: Fair
Diet: As tolerated
Activity: As tolerated
Driving Restrictions: As prior to admission
Referrals:
Lon Abraham MD [Active] - in two to three weeks
Dotty Astorga MD [Family Provider] - in less than 1 week
Prescriptions:
New
budesonide 0.5 mg/2 mL Suspension For Nebulization
0.5 mg inhalation R BID 30 Days Qty: 120 0RF
Continued
nadolol 40 MG tablet
40 mg PO DAILY
PreserVision AREDS-2 250-90-40-1 mg Capsule
1 tab PO BID
paroxetine HCl [Paxil] 20 mg Tablet
20 mg PO DAILY
furosemide 20 mg Tablet
20 mg PO Q48H@0800
sodium chloride [NebuSal] 3 % Solution For Nebulization
4 ml inhalation R BID Qty: 120 0RF
prednisone 5 mg Tablet
5 mg PO Q48H
Rx Instructions:
alternate with prednisone 10mg
famotidine 20 mg Tablet
20 mg PO DAILY
hydralazine 50 mg Tablet
50 mg PO BID
risedronate 150 mg Tablet
150 mg PO QMONTH
Patient Comments:
Takes on the 4th day of each month
prednisone 10 mg tablet
10 mg PO Q48H
Rx Instructions:
alternate with prednisone 5mg
guaifenesin 600 mg tablet extended release 12hr
1,200 mg PO DAILY
Changed
ipratropium-albuterol 0.5 mg-3 mg(2.5 mg base)/3 mL Solution For Nebulization
3 ml INHALATION R QID Qty: 0 0RF
Discharge Orders:
Discharge Patient (As Directed); Ordered 07/14/24
Ordered By: Ralph Garcia
Discharge Date and Time
Print Language: LATVIAN
== END 2024-07-14 18:32 | disposition home health service (06) | DRG 190 ==
LOC: 4 WEST ACU 16:34
PROVIDERS: General Practice; Physician Assistant; ADMITTING PHYSICIAN Hospitalist; ATTENDING PHYSICIAN Hospitalist; CONSULT PHYSICIAN Internal Medicine Critical Care Medicine; EMERGENCY PHYSICIAN Emergency Medicine; FAMILY PHYSICIAN Internal Medicine
DX: J44.1 Chronic obstructive pulmonary disease with (acute) exacerbation (principal); J18.9 Pneumonia, unspecified organism; E87.1 Hypo-osmolality and hyponatremia; J98.11 Atelectasis; Z82.5 Family history of asthma and other chronic lower respiratory diseases; J44.0 Chronic obstructive pulmonary disease with (acute) lower respiratory infection; I10 Essential (primary) hypertension; Z82.49 Family history of ischemic heart disease and other diseases of the circulatory system; I95.1 Orthostatic hypotension; K58.9 Irritable bowel syndrome, unspecified; Z79.52 Long term (current) use of systemic steroids; Z22.322 Carrier or suspected carrier of Methicillin resistant Staphylococcus aureus; J31.0 Chronic rhinitis; D64.9 Anemia, unspecified; Z66 Do not resuscitate; Z85.828 Personal history of other malignant neoplasm of skin; E78.5 Hyperlipidemia, unspecified; J47.9 Bronchiectasis, uncomplicated; Z90.49 Acquired absence of other specified parts of digestive tract; Z88.0 Allergy status to penicillin; Z88.5 Allergy status to narcotic agent; I27.20 Pulmonary hypertension, unspecified; H02.401 Unspecified ptosis of right eyelid; F41.9 Anxiety disorder, unspecified; Z80.0 Family history of malignant neoplasm of digestive organs; J32.9 Chronic sinusitis, unspecified; Z87.01 Personal history of pneumonia (recurrent); Z11.52 Encounter for screening for COVID-19
CPT/HCPCS: 70450; 71046; 72125; 80048; 80053; 85025; 85027; 87070; 87502; 87811; 93005; 94640; 94669; 96360; 97162; 97166; 99285

== ENCOUNTER 2024-09-02 22:16 | Inpatient (IN) | payer MEDICARE, BC, SELFPAY ==
[2024-09-02] VITALS (9 sets, daily range): BP systolic 79–140; BP diastolic 47–117; BMI 20.1; BMI 19.8
--- NOTE | 2024-09-02 18:11 | ED.GENMED ---
History of Present Illness
General
Chief Complaint: Cough
Source: patient
Exam Limitations: none
Time Seen by Provider: 09/02/24 18:10
Nursing documentation reviewed up to this point in time: agreed with
History of Present Illness
History of Present Illness:
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
diverticulosis, anxiety, hyponatremia, presents for increase in cough, SOB, low pulse ox at [facility], also Left lower jaw pain and swelling, neck ST swelling, decreased appetite. Denies CP. Denies UTI symptoms. Denies n/v/d/c.
Past History
Past History
ED Past Medical History: COPD, HTN, Psychiatric (Anxiety, ), Other (Bronchitis, :Left upper Pneumothorax, Diverticulitis, ) and Other (Chronic sinusitis, chronic cough, lung disease)
ED Past Surgical History: Cholecystectomy, ( X 2), Gynecological and Other (Dental implants, Cataracts, Myringotomy tubes)
Social History
Tobacco: Non-smoker
Alcohol: Occasional
Drug: None
Personal:
Living: alone
Employment: Not employed
Family History
Family History: Other
Review of Systems
Review of Systems
Allergies reviewed?: Yes
All Other Systems: ROS reviewed and negative except as documented in HPI and ROS
Constitutional: Denies fever
Respiratory: Reports cough and trouble breathing
Cardiac: Denies chest pain
ABD/GI: Denies abdominal pain, nausea, vomiting or diarrhea
: Denies dysuria
Musculoskeletal: Reports edema
Skin: Reports other (sore right vicente)
Neurological: Denies headache, weakness or numbness
Phy Exam
Physical Exam
Physical Exam:
GENERAL: No acute distress. A&Ox3.
CONSTITUTIONAL: Afebrile.
EYES: clear, conjunctivae normal
ENMT: moist mucus membranes, Pharynx nl. Left lower jaw swelling with tenderness along the buccal mucosal border. Bullous skin colored (no erythema) soft tissue swelling left side of neck looking like a 'turkey wattle.'
RESPIRATORY: Regular respirations, nonlabored, lungs with diminished breath sounds
CARDIOVASCULAR: Regular rate and rhythm, no murmurs, no rubs.
GI: Soft, nontender, normal BS
MUSCULOSKELETAL: Well perfused. Bilateral +2 pitting edema both lower legs.
SKIN: Warm, dry, pale. Deep clean abrasion 5 mm round with local surrounding erythema, approximately the size of a quarter right vicente. Dressing intact.
PSYCH: Normal mood and affect. Well kept, interactive and appropriate
NEUROLOGIC: Awake, alert and oriented. No focal neurological deficits
Course
Orders/Labs/Results
Orders:
Orders
09/02/24 Breakfast
Cholesterol Lowering
At Your Request: Limited Participation
Fluid Restriction: 1200 mL/day (40 oz)
Cholesterol Lowering: Sodium, 2 Gram
09/02/24 18:38
CT Neck With Iv Contrast Urgent
Comment:
Reason For Exam: swelling, pain left lower jaw
09/02/24 19:02
Complete Blood Count/With Diff Urgent
Comprehensive Metabolic Panel Urgent
NT-proBNP Urgent
Troponin I Urgent
09/02/24 19:42
CT Chest With Iv Contrast Urgent
Comment:
Reason For Exam: Sob, hypoxia
09/02/24 20:35
Furosemide [Lasix] 40 mg IV NOW STA
09/02/24 20:52
CeFAZolin 1 GRAM [Ancef] 1 gram in 5 ml IV NOW
09/02/24 21:26
Admit/Transfer Patient As Directed
Co-Sign Provider:
Level of Care: Inpatient admission
Assign to:: Telemetry
Physician / Group: mal
Diagnosis: CHF
Reason for Telemetry: Subacute Heart Failure
Date to Stop Telemetry: 09/04/24
Time to Stop Telemetry: 11:00
Reason for Hospitalization: CHF
Expected length of stay greater than two midnights?: Yes
ELOS- Estimated Length of Stay in days: 3
I certify the patient meets the requirements for IP care: Yes
PRN Pain Medication Management As Directed
May give lesser potent ordered pain med per pt: Yes
preference::
Protocol:: Medication orders for pain may be administered in a
manner that supports deferring to patient preference
when the pt is:
- Requesting an ordered lesser potent pain medication.
Least to most potent pain medications are defined
as: acetaminophen < NSAID < tramadol < opioids
(morphine, oxycodone, hydromorphone).
- Requesting a lesser dose of the same medication IF
ORDERED.
- Requesting a less intrusive route of administration
if both routes are prescribed by the provider (PO <
IV).
09/02/24 21:28
Code Status As Directed
Resuscitation Status: Do not resuscitate
Reached after discussion with pt or family/Healthcare POA: Yes
DNR Bracelet Application ONCE
09/02/24 21:42
Cefepime HCl [Maxipime] 1,000 mg IV NOW STA
MetroNIDAZOLE 500 MG/100 ML [Flagyl 500 mg] 100 ml IV NOW
09/02/24 21:45
Sterile Water [Sterile Water For Injection] 10 ml IV NOW STA
09/02/24 22:00
Flush (0.9% Sodium Chloride) [Flush (Nss)] See Dose Instructions IV PER PROTOCOL
09/02/24 22:57
Alprazolam [Xanax] 0.125 mg PO NOON PRN anxiety
HydrALAZINE [Apresoline] 50 mg PO BID
Ipratropium/Albuterol Sulfate [Duoneb] 3 ml INH R Q4HPRN PRN
Sodium Chloride 3% INH [Sodium Chloride 3% For Inhalation] 1 vial INH R BID
09/02/24 22:57
CARDIOLOGY CONSULT Routine
Consulting Provider: Sanjay Sanchez
Was physician already notified: Yes
HF DIETARY CONSULT Routine
HF EDUCATOR CONSULT Routine
Comment:
INFECTIOUS DISEASE CONSULT Routine
Consulting Provider: Susana Booth
Was physician already notified: Yes
Activity As Directed
Activity Level: As Tolerated
Intake/ Output As Directed
Frequency: Per unit guidelines
Patient Education As Directed
Type: CHF folder
Comment: give on admission. Document in Interdisciplinary Education record
Sleep Apnea Assessment by RN As Directed
Comment:
Physician Instructions:
Vital Signs As Directed
Frequency: Other
Additional Instructions:: Q12 or per unit guidelines if more frequent.
Weight As Directed
Frequency: Daily
Type of Scale: Standing Scale
Comment: Daily morning weight. If unable to stand, use balanced bed scale.
Weight As Directed
Frequency: Once
Type of Scale: Standing Scale
Comment: Upon Admission. If unable to stand, use balanced bed scale.
Pulse Ox/cont/shift [RESP] Routine
Quantity: 1
Special Instructions: Daily pulse oximetry at rest. If greater than 92% at rest also obtain pulse oximetry
while ambulating as tolerated.
Vest Therapy [Rx Vest] [RESP] Routine
Quantity: 1
Pt Eval And Treat Routine
Activity Level: As Tolerated
DX Deep Vein Thrombosis Video Routine
09/03/24 06:00
Cefepime HCl [Maxipime] 1,000 mg IV Q8H
MetroNIDAZOLE 500 MG/100 ML [Flagyl 500 mg] 100 ml IV Q8H
09/03/24 08:00
Basic Metabolic Panel IN AM
Cardiovascular Evaluation IN AM
Complete Blood Count/No Diff IN AM
TSH Reflex To Free T4 IN AM
Budesonide [Pulmicort] 0.5 mg INH R BID
Famotidine [Pepcid] 20 mg PO DAILY
Furosemide [Lasix] 20 mg IV BID AT 0800,1600
Guaifenesin [Mucinex] 1,200 mg PO BID
Heparin 5,000 units SC Q12
Nadolol [Corgard] 40 mg PO DAILY
09/03/24 12:00
Prednisone [Deltasone] 20 mg PO NOON
09/03/24 14:00
Paroxetine [Paxil] 30 mg PO DAILY@1400
09/04/24 11:00
DC Protocol for Telemetry ONCE
Abnormal Lab Results
09/02/24
19:02
WBC 16.0 H 10^3/uL
(4.8-10.8)
RBC 3.89 L 10^6/uL
(4.20-5.40)
Hgb 10.6 L g/dL
(12.0-16.0)
Hct 31.6 L %
(37.0-47.0)
RDW 14.8 H %
(11.5-14.5)
Abs Immat Gran (auto) 0.1 H 10^3/uL
(0-0.05)
Absolute Neuts (auto) 14.4 H 10^3/uL
(1.4-6.5)
Absolute Lymphs (auto) 0.6 L 10^3/uL
(1.2-3.4)
Absolute Monos (auto) 1.0 H 10^3/uL
(0.1-0.6)
Immature Gran % 0.9 H %
(0-0.5)
Neutrophils % 89.5 H %
(42.2-75.2)
Lymphocytes % 3.6 L %
(20.5-51.1)
BUN 57 H mg/dl
(7-17)
Creatinine 1.3 H mg/dL
(0.6-1.0)
Glucose 60 L mg/dl
(70-99)
Albumin 2.9 L g/dl
(3.5-5.0)
09/02/24 19:02
09/02/24 19:02
Vital Signs
Initial and Last Documented VS:
Initial Vital Signs
Pulse Resp BP Pulse Ox
80 25 140/117 92
09/02/24 18:13 09/02/24 18:13 09/02/24 18:13 09/02/24 18:13
Last Documented Vital Signs
Temp Pulse Resp BP Pulse Ox
97.2 F 71 18 123/61 94
09/04/24 15:41 09/04/24 20:26 09/04/24 20:26 09/04/24 19:55 09/04/24 20:26
MDM/Problems Addressed
Differential Diagnosis Includes:
The Differential Diagnosis includes, in no particular order and is not limited to:
1. Pneumonia
2. Chronic Obstructive Pulmonary Disease Exacerbation
3. Congestive Heart Failure
4. Dental Abscess
5. Sialadenitis
6. Submandibular Gland Infection
7. Neck Cellulitis
8. Lymphadenopathy
9. Malignancy
MDM/Problems Addressed:
89-year-old female with history of COPD, atelectasis/mucous plugging, left lung bronchus obstruction since 2020, pulmonary hypertension, chronic normocytic anemia, hypertension, thyroid mass, chronic right eyelid droop/ophthalmic squamous cell
cancer, chronic subdural hematoma, diverticulosis, anxiety, hyponatremia, presents for increase in cough, SOB past 3 days, low pulse ox at [facility], also Left lower jaw pain and swelling, neck ST swelling, she noted decreased appetite. Denies CP.
Denies UTI symptoms. Denies n/v/d/c.
Patient is DNR she has the paperwork with her
6:00 PM:
CBC: WBC 16.0 with a shift.
CMP: BUN/creatinine 57/1.3, this is new glucose 60 albumin 2.9
Troponin WNL
BNP 4170
7:45 PM:
Patient in CAT scan
CT Called to say upper left lung is entirely mark out, chest x-ray changed to chest CTP
Pt back, daughter at bedside states pt entire left lung has been 'mark out' followed by Pulmonology Dr. White, 'she's only working on one lung.'
Neck CT w IV contrast, Chest CT w IV contrast: Radiology report read:
IMPRESSION:
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
Findings suggestive of left-sided parotiditis. No fluid collections.
Severe L1 compression fracture, new from 12/03/2023 and age indeterminate. Recommend correlation for any point tenderness in this region.
Partially healed sternal body fracture, new from prior.
Additional chronic changes as described.
Daughter states that patient was on 20 mg of Lasix every other day and this past week she started with bilateral leg swelling and increased trouble breathing so her PCP started her on 20 mg daily 2 days ago
Plan: Patient states years and years ago she developed a rash with penicillin. Will use cefazolin IV for parotitis/facial cellulitis
IV Lasix for fluid overload
Patient is DNR
Hospitalist notified of admission
*Pulse Oximetry
Patient hypoxic: no
*Critical Care Note
Total Time (30-74mins, 75-104mins- exclusive of procedures): Not Applicable
ED Attending Note
-
Portions of this chart may have been created with voice recognition software.� Occasional wrong word or��sound alike� substitutions may have occurred due to the inherent limitations of voice recognition software.
Discharge Plan
Departure
Patient Disposition: Admit
Date of Disposition: 09/02/24
Time of Disposition: 20:34
Admit to: Med/Surg
Presentation/result/management discussed w/ accepting MD/DO: Hospitalist
Condition: Fair
Discharge Problem:
Acute parotitis, Facial cellulitis, CHF (congestive heart failure)
Interventions
Interventions:
*Risk Screen - Suicide Last Done: 09/03/24 00:00
*General Assessment Last Done: 09/02/24 18:27
*Neglect/Abuse Screening Last Done: 09/02/24 18:31
*ED- Fall Risk Assessment Last Done: 09/02/24 18:23
*ED COVID-19 Vaccine History Last Done: 09/02/24 18:23
*Nursing Disposition Last Done: 09/02/24 23:00
ED- Pulmonary Assessment Last Done: 09/02/24 19:05
Discharge Date and Time
Discharge Date/Time: 09/02/24 23:01
[2024-09-02 19:12] LABS: Hematocrit 31.6 % (37.0-47.0); Hemoglobin 10.6 g/dL (12.0-16.0); Mean Corp Hgb Conc. 33.5 g/dL (33.0-37.0); Mean Corpuscular Hgb 27.2 pg (27.0-31.0); Mean Corpuscular Volume 81.2 fL (81.0-99.0); Mean Platelet Volume 9.8 fL (7.4-10.4); Platelet Count 340 10^3/uL (130-400); Red Blood Cell Count 3.89 10^6/uL (4.20-5.40); Red Cell Dist. Width 14.8 % (11.5-14.5)
[2024-09-02 19:27] LABS: % Basophils 0.1 % (0-2); % Immature Granulocytes 0.9 % (0-0.5); % Lymphocytes 3.6 % (20.5-51.1); % Monocytes 5.9 % (1.7-9.3); % Neutrophils 89.5 % (42.2-75.2); Absolute Immature Granulocytes 0.1 10^3/uL (0-0.05); Absolute Lymphocytes 0.6 10^3/uL (1.2-3.4); Absolute Neutrophils 14.4 10^3/uL (1.4-6.5); Nucleated Red Blood Cells % 0 %
[2024-09-02 19:31] LABS: ALT (SGPT) 24 U/L (0-35); AST (SGOT) 29 U/L (14-36); Albumin 2.9 g/dl (3.5-5.0); Alkaline Phosphatase 104 U/L (38-126); Blood Urea Nitrogen 57 mg/dl (7-17); Calcium 8.4 mg/dl (8.4-10.2); Carbon Dioxide 28 mmol/L (22-30); Chloride 100 mmol/L (98-107); Estimated Creatinine Clearance 25 ml/min; Glucose 60 mg/dl (70-99); Potassium 4.6 mmol/L (3.5-5.1); Sodium 136 mmol/L (135-145); Total Bilirubin 0.7 mg/dl (0.2-1.3); Total Protein 6.7 g/dl (6.3-8.2); eGFR 39.55
[2024-09-02 19:42] LABS: NT-proBNP 4170 pg/ml; Troponin I < 0.012 ng/ml
--- NOTE | 2024-09-02 21:03 | HPS.HSE ---
Family Physician
-
Family Physician: Dotty Astorga
Chief Complaint
-
sob
History of Present Illness
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
diverticulosis, anxiety, hyponatremia, presents to us with sob which is worse with exertion and orthopnea for past one week. she noted bilateral LE edema for past few days. patient has chronic cough. her oxygen was noted low at [facility]. today she felt
lightheaded. she woke up today with left jaw, neck pain, swelling and redness. she is complaining of mid sternum pain for past few weeks. denied GRAHAM, or syncope. denied abdominal pain,n,v,d. denied dysuria or hematuria.
She was noted with no CHF and parotitis. Patient received a dose of Ancef and Lasix in the. Admitted for further management
Medical History
Past Medical History
Past Medical History: Reports Other
Additional Past Medical History:
Basal cell carcinoma
Bullous pemphigoid
Skin cancer
Anxiety
Tremor
IBS
Hypertriglyceridemia
Thyroid mass
Restrictive lung disease
Subdural hematoma
Hypertension
Bronchitis
Chronic rhinitis
Staphylococcal pneumonia
Past Surgical History: Reports Other
Additional Past Surgical History:
Face Mohs surgery
Nasal surgery
Cholecystectomy
Cataract extraction
Sinus surgery
Right myringotomy
Social History
Tobacco: Non-smoker
Alcohol: Occasional
Drug: None
Personal: Single
Living: Intermediate
Family History
Family History: Not pertinent
Allergies / Home Medications
Allergies reflects when Allergies were last updated in [facility].
Home Medications with original date entered in [facility]
Allergy/Medication List:
Allergies
Allergy/AdvReac Type Severity Reaction Status Date / Time
codeine Allergy Unknown Verified 07/12/24 11:20
Penicillins Allergy Rash Verified 07/12/24 11:20
Home Medications
nadolol 40 mg tablet 40 mg PO DAILY Blood pressure 05/23/21
vit C 250 mg-vit E 90 mg-zinc 40 mg-copper 1 [id number] capsule (PreserVision AREDS-2) 1 cap PO BID Supplement 05/23/21
furosemide 20 mg tablet 20 mg PO DAILY Fluid Retention/Swelling 06/24/23
sodium chloride 3 % for nebulization (NebuSal) 4 ml inhalation R BID #120 mL 06/29/23
famotidine 20 mg tablet 20 mg PO DAILY Gastrointestinal Issue 07/12/24
hydralazine 50 mg tablet 50 mg PO BID Blood Pressure 07/12/24
prednisone 10 mg tablet 20 mg PO NOON Anti-Inflammatory 07/12/24
risedronate 150 mg tablet 150 mg PO QMONTH BONE 07/12/24
budesonide 0.5 mg/2 mL suspension for nebulization 0.5 mg (2 mL) inhalation R BID 30 days #120 mL 07/14/24
ipratropium 0.5 mg-albuterol 3 mg (2.5 mg base)/3 mL nebulization soln 3 ml inhalation R QID Lung/breathing issues #0 mL 07/14/24
alprazolam 0.25 mg tablet 0.125 mg PO NOON PRN anxiety 09/02/24
guaifenesin 1,200 mg tablet, extended release 12 hr 1,200 mg PO BID 09/02/24
loperamide 2 mg capsule 4 mg PO DAILYPRN PRN diarrhea 09/02/24
paroxetine HCl 30 mg tablet 30 mg PO DAILY@1400 09/02/24
Review of Systems
-
Constitutional: Reports Fatigue
EENT: Reports No Symptoms
Respiratory: Reports Cough (Chronic) and Trouble Breathing (With exertion and orthopnea)
Cardiac: Reports No Symptoms
Abdomen/GI: Reports No Symptoms
: Reports No Symptoms
Musculoskeletal: Reports No Symptoms
Skin: Reports No Symptoms
Neurological: Reports No Symptoms
Endocrine: Reports No Symptoms
Hematologic/Lymphatic: Reports No Symptoms
Psych: Reports No Symptoms
Physical Exam
Vital Signs
Vital Signs
Temp Pulse Resp BP Pulse Ox
97.8 F 80 16 113/50 3
09/02/24 18:21 09/02/24 20:55 09/02/24 20:03 09/02/24 20:55 09/02/24 20:00
Physical Exam
General: Well Developed, Well Nourished and No Apparent Distress
HEENT: NormoCephalic, Moist mucous membranes and Atraumatic
Respiratory: Rales and Crackles
Cardiac: S1/S2 and Regular Rhythm; No Murmur or Rub
GI: Soft, Non Tender, Non Distended and Normal Bowel Sounds; No Organomegaly
Rectal: Deferred by Provider
Musculoskeletal: No Clubbing, No Cyanosis and No Edema
Skin: Other (Left-sided neck jaw red and swollen)
Neuro: AO x 3 and Nonfocal/grossly intact
Psych: Calm
Laboratory Results
-
09/02/24 19:02
09/02/24 19:02
Laboratory Results
Total Bilirubin 0.7 mg/dl (0.2-1.3) 09/02/24 19:02
AST 29 U/L (14-36) 09/02/24 19:02
ALT 24 U/L (0-35) 09/02/24 19:02
Alkaline Phosphatase 104 U/L (38-126) 09/02/24 19:02
Troponin I < 0.012 ng/ml 09/02/24 19:02
Data Reviewed
-
CT Scan: Report Reviewed by me
Lab Data: Labs Reviewed by me
Impression/Plan
-
# Acute congestive heart failure
# History of pulmonary hypertension
- BNP 4170
- Chest and neck CT with progression of Findings suggestive of left-sided parotiditis. No fluid collections.Severe L1 compression fracture, new from 12/03/2023 and age indeterminate. Recommend correlation for any point tenderness in this
region.Partially healed sternal body fracture, new from prior.
-Diuretic continued
- Strict PUALINE, daily weight, fluid restriction
- Obtain echocardiogram
Cardiology consult
# Left parotitis with facial cellulitis
- WBC 16.0
-IV cefepime and flagyl
- Continue to monitor CBC
- Tylenol as needed for fever and pain
# Anemia of chronic disease
- Hemoglobin stable at 10.6
- Patient with no active bleeding
- Continue to monitor
# Acute kidney injury likely from fluid overload
- Creatinine 1.3
- Diuretics continued
- Monitor BMP
#History for interstitial lung disease
- On prednisone
-budesonide continued
-vest therapy
#Essential hypertension
- Continue nadolol, hydralazine
#Anxiety
- Continue Xanax and Paxil
# GERD
- PPI continued
CODE STATUS: DNI/DNR
DVT prophylaxis: Heparin
--- NOTE | 2024-09-02 21:34 | W.PN.UPDATE ---
Update Note
Progress Note Update
Patient seen with MAKI. I agree with the findings on history and physical. I concur with the assessment and plan.
This is a 89-year-old female who has a past medical history significant for chronic obstructive pulmonary disease on prednisone, hypertension, chronic pneumonia, bullous pemphigoid presenting to the emergency department today with a few days of
bilateral lower extremity swelling, orthopnea, worsening shortness of breath and intermittent hypoxia in addition to ongoing chronic cough. She actually arose this morning with pain and swelling over the left side of her jaw. It has worsened since
initial presentation. She has not had any fevers or chills.
In the emergency department she has remained afebrile, blood pressure is 113/50 with a pulse of 84 and she was satting 93% on room air.
She has a white count of 16 hemoglobin and platelets were normal. Electrolytes were stable BUN/creatinine was stable. Glucose is only slightly low. Troponin is negative. BNP is elevated at over 4000. Albumin is 2.9.
CT of the chest shows left-sided parotiditis, no fluid collections, there is chronic complete collapse of the left lung with cystic changes. Similar leftward mediastinal shift. No new/suspicious pulmonary nodules, areas of airspace disease, pleural
effusions, pericardial effusions or enlarged lymph nodes in the thorax. Visualized upper abdomen is unremarkable.
Patient with crackles on exam, no wheezing. She does have 1+ to 2+ ankle edema.
Assessment and plan
1. Parotitis -suspected acute proctitis. Patient has been on antibiotics intermittently over the last few months. But has not been recently hospitalized. She has allergies to penicillin, has had 1 positive MRSA swab in the last 2 years.
- Admit to telemetry
- Start cefepime and Flagyl
- MRSA swab
- Pain control
- ID consult
2. CHF -peripheral edema, orthopnea, shortness of breath, no increased pulmonary edema, elevated BNP
- Start Lasix 20 mg IV twice daily
- Daily weights and strict ins and outs
- Echo
-Cardiology consult
3. COPD -chronic cough but appears stable and no new changes on CT
- Continue home nebulizer treatments
- Oxygen as needed to keep sats greater than 90
- Chest PT
- Continue standing prednisone 20 mg
- Inhaled.
DVT prophylaxis�heparin subcu
CODE STATUS�DNR
[2024-09-02] MEDS: MAXIPIME 1000 MG IV (21:48)
[2024-09-02] MEDS: STERILE WATER FOR INJECTION 10 ML IV (21:49)
[2024-09-02] MEDS: FLAGYL 500 MG 100 IV (21:53)
[2024-09-02] MEDS: APRESOLINE 50 MG PO (23:18)
[2024-09-02] MEDS: DUONEB 3 ML INH (23:25)
[2024-09-02] MEDS: SODIUM CHLORIDE 3% FOR INHALATION 1 VIAL INH (23:25)
[2024-09-02] MEDS: PULMICORT 0.25 MG INH (23:30)
[2024-09-02] MEDS: TYLENOL 650 MG PO (23:47)
[2024-09-03] VITALS (7 sets, daily range): BP systolic 96–137; BP diastolic 47–65; O2SAT 93; BMI 19.8
[2024-09-03] MEDS: DUONEB 3 ML INH ×5 (02:57→19:31)
--- NOTE | 2024-09-03 04:18 | W.PN.UPDATE ---
Update Note
Progress Note Update
Per nursing staff. patient has difficulty swallowing, Will change diet to NPO for now and add speech eval in am.
[2024-09-03] MEDS: FLAGYL 500 MG 100 IV ×3 (05:10→21:18)
[2024-09-03] MEDS: STERILE WATER FOR INJECTION 10 ML IV ×3 (05:11→21:19)
[2024-09-03] MEDS: MAXIPIME 1000 MG IV ×3 (05:11→21:19)
--- NOTE | 2024-09-03 07:32 | CON.CAR ---
Addendum entered and electronically signed by Fidel Mahajan MD 09/03/24 18:16:
I saw and examined the patient.
The Landscape Horticulture Instructor's note was reviewed and I agree with the note.
Comment:
GEN: No distress, awake, Ox3
HEENT: supple, anicteric, mmm, swollen face
LUNGS: dec BS L side
CV: Reg, S1/S2, 1/6 syst LSB, no murmur
ABD: soft, BS+, NT/ND
EXT: No edema
NEURO: Gross non-focal
SKIN: No rash
Plan:
89-year-old frail female with extensive past medical history including chronic left hemithorax/MRSA pneumonia, COPD/interstitial lung disease presents to [facility] with hypoxemia, cough and parotitis.
She was hospitalized in July 2024 for pneumonia treated with antibiotics and steroids but continues to feel poorly. In early August she had chest pain cough and shortness of breath with increased lower edema. Her Lasix was increased at that time but
with worsening symptoms she presented to the emergency room.
At this point she was found to be in acute heart failure with preserved ejection fraction was also found to have parotitis.
Start Lasix 20mg IV twice daily. Check echocardiogram. She does have a history of moderate mitral regurgitation.
Continue antibiotics for parotitis.
Continue treatments for COPD/ILD. Cont prednisone
Continue Corgard and hydralazine.
With acute kidney injury and creatinine rising up to 1.4 would hold on spironolactone and SGLT2 inhibitor
Original Note:
Consultation
Consultation Request
Date/Time Consultation Requested: 09/02/24 at 2257
Date/Time Consultation Performed: 09/03/24 at 0727
Requesting Provider: Dr. Lobo
Performing Provider: Dr. Mahajan
Reason for Consultation: Acute HF
Medical History
-
History of Present Illness:
Patient came to [facility] ER yesterday with increased cough and low pulse ox and was admitted with parotiditis and acute HF, cardiology is now consulted. Patient is not seeing cardiology before, but did have an echo back on 03/07/2021 that showed
preserved EF with moderate MR. Patient does follow regularly with pulmonology and has a history of a chronic left hemithorax opacification due to mucous plugging from retained secretions and chronic PNA and as a result uses vest therapy and
nebulizers regularly. Patient is also chronically on Lasix 20 mg every other day, but she cannot tell me why she is on that medication and denies any known history of HF. Patient says that after her admission from 07/12/2024 until 07/14/2024 she
returned to her independent living apartment and saw pulmonology for hospital follow-up on 07/25/2024 and they were continuing to manage with chronic doxycycline and steroids, but continued to be symptomatic with fatigue so her helicopter mechanic
restarted steroids to see if there was a component of adrenal insufficiency and there may have been some improvement. Then starting around 08/13/2024 patient had CP and increased productive cough and declined to see the HEMATOLOGY NURSE EDUCATOR at the pulmonary office,
only wanted to see Dr. Abraham, and instead saw a doctor at her PCP office who managed discomfort as costochondritis. Patient then noted to have increased LE edema and decreased urine output this past weekend and her daughter called the PCP office
and they increase Lasix to 20 mg daily instead of every other day, but this did not make any difference in her LE edema. Patient then had increasing SOB and the pulse ox was low at [facility] yesterday so she came to the ER.
PMH:
Recent admission for syncope 07/12/2024 until 07/14/2024
h/o MRSA
ILD
COPD
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
Past Medical History
Past Medical History: Other (in HPI)
Past Surgical History: Cholecystectomy and
Social History
Tobacco: Non-Smoker
Alcohol: Occasional (less than once a month)
Drug: None
Personal:
Living: Alone (independent living at [facility])
Family History
Family History: Hypertension
Allergies / Home Medications
Allergy/AdvReac Type Severity Reaction Status Date / Time
codeine Allergy 'makes me Verified 09/02/24 23:26
hyper'
Penicillins Allergy Rash Verified 07/12/24 11:20
�Medication �Instructions �Recorded �Confirmed �Type
nadolol 40 mg tablet 40 mg PO DAILY Blood pressure 05/23/21 09/02/24 History
vit C 250 mg-vit E 90 mg-zinc 40 1 cap PO BID Supplement 05/23/21 09/02/24 History
mg-copper 1 [id number]
capsule (PreserVision AREDS-2)
furosemide 20 mg tablet 20 mg PO DAILY Fluid 06/24/23 09/02/24 History
Retention/Swelling
sodium chloride 3 % for 4 ml inhalation R BID #120 mL 06/29/23 09/02/24 Rx
nebulization (NebuSal)
famotidine 20 mg tablet 20 mg PO DAILY Gastrointestinal 07/12/24 09/02/24 History
Issue
hydralazine 50 mg tablet 50 mg PO BID Blood Pressure 07/12/24 09/02/24 History
prednisone 10 mg tablet 20 mg PO NOON Anti-Inflammatory 07/12/24 09/02/24 History
risedronate 150 mg tablet 150 mg PO QMONTH BONE 07/12/24 09/02/24 History
budesonide 0.5 mg/2 mL suspension 0.5 mg (2 mL) inhalation R BID 30 07/14/24 09/02/24 Rx
for nebulization days #120 mL
ipratropium 0.5 mg-albuterol 3 mg 3 ml inhalation R QID 07/14/24 09/02/24 Rx
(2.5 mg base)/3 mL nebulization Lung/breathing issues #0 mL
soln
alprazolam 0.25 mg tablet 0.125 mg PO NOON PRN anxiety 09/02/24 09/02/24 History
guaifenesin 1,200 mg tablet, 1,200 mg PO BID 09/02/24 09/02/24 History
extended release 12 hr
loperamide 2 mg capsule 4 mg PO DAILYPRN PRN diarrhea 09/02/24 09/02/24 History
paroxetine HCl 30 mg tablet 30 mg PO DAILY@1400 09/02/24 09/02/24 History
Review of Systems
-
History Source: Patient
All other systems: Negative unless noted
Physical Exam
Vital Signs
Temp Pulse Resp BP Pulse Ox
98.3 F 89 20 110/51 93
09/03/24 03:43 09/03/24 03:43 09/03/24 03:43 09/03/24 03:43 09/03/24 03:43
GEN: NAD. AAOx3
HEENT: EOMI, MMM
LUNGS: RA.Decreased BS left base.
CV: SR on tele. Reg, no murmur
ABD: ND
EXT: +2 pitting B/L malleolar edema.
NEURO: Gross non-focal
SKIN: Warm, dry and pink. No rash
Lab Results
Troponin I < 0.012 ng/ml 09/02/24 19:02
Ita-O-Vlelwlttest Pept 4170 pg/ml 09/02/24 19:02
Impression / Plan
-
PCP: Dr. Dotty Astorga
Card: None prior to admission
Pulm: Dr. Abraham
Impression:
Admitted with acute HF and parotiditis 09/02/24
Recent admission for syncope 07/12/2024 until 07/14/2024
Left-sided parotiditis and facial cellulitis
h/o MRSA
Acute HFpEF
GENET
ILD
COPD
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
Echo 03/07/2021: EF 60 to 65%, stage II diastolic dysfunction, posterior MAC, moderate MR, aortic sclerosis without stenosis, moderate TR with PAP 41 mmHg
Plan:
-Patient came to [facility] ER yesterday with increased cough and low pulse ox and was admitted with parotiditis and acute HF, cardiology is now consulted. Patient is not seeing cardiology before, but did have an echo back on 03/07/2021 that showed
preserved EF with moderate MR. Patient does follow regularly with pulmonology and has a history of a chronic left hemithorax opacification due to mucous plugging from retained secretions and chronic PNA and as a result uses vest therapy and
nebulizers regularly. Patient is also chronically on Lasix 20 mg every other day, but she cannot tell me why she is on that medication and denies any known history of HF. Patient says that after her admission from 07/12/2024 until 07/14/2024 she
returned to her independent living apartment and saw pulmonology for hospital follow-up on 07/25/2024 and they were continuing to manage with chronic doxycycline and steroids, but continued to be symptomatic with fatigue so her helicopter mechanic
restarted steroids to see if there was a component of adrenal insufficiency and there may have been some improvement. Then starting around 08/13/2024 patient had CP and increased productive cough and declined to see the HEMATOLOGY NURSE EDUCATOR at the pulmonary office,
only wanted to see Dr. Abraham, and instead saw a doctor at her PCP office who managed discomfort as costochondritis. Patient then noted to have increased LE edema and decreased urine output this past weekend and her daughter called the PCP office
and they increase Lasix to 20 mg daily instead of every other day, but this did not make any difference in her LE edema. Patient then had increasing SOB and the pulse ox was low at [facility] yesterday so she came to the ER.
-ECG reviewed by me is SR without acute ST or T wave changes
-proBNP [address] of chest showed her chronic left lung collapse, but no other concerning changes. Patient was given Lasix 40 mg IV x 1 in the ER last night and denies any increase in urine output. Patient now ordered Lasix 20 mg IV BID, dose to
be given this morning.
-EF was preserved by echo 03/07/2021, recheck echo today.
-Outpatient dose of nadolol 40 mg daily has been continued
-Patient was not taking SGLT2 inhibitor prior to admission, will not start with GENET
-Patient was not taking aldosterone antagonist prior to admission, will not start with GENET
-Labs reviewed by me and the troponin was undetectable, no ischemic changes on ECG
-Patient with chronic lung disease and would recommend pulmonology see the patient as well.
[2024-09-03] MEDS: SODIUM CHLORIDE 3% FOR INHALATION 1 VIAL INH ×2 (08:12→19:31)
[2024-09-03] MEDS: PULMICORT 0.5 MG INH ×2 (08:12→19:31)
[2024-09-03 08:28] LABS: Hemoglobin 8.9 g/dL (12.0-16.0); Mean Corp Hgb Conc. 34.2 g/dL (33.0-37.0); Mean Corpuscular Hgb 27.4 pg (27.0-31.0); Mean Platelet Volume 9.8 fL (7.4-10.4); Platelet Count 261 10^3/uL (130-400); Red Blood Cell Count 3.25 10^6/uL (4.20-5.40); Red Cell Dist. Width 14.6 % (11.5-14.5); White Blood Cell Count 16.3 10^3/uL (4.8-10.8)
[2024-09-03] MEDS: APRESOLINE PO (08:38)
[2024-09-03] MEDS: MUCINEX PO (08:38)
[2024-09-03] MEDS: CORGARD PO (08:38)
[2024-09-03] MEDS: PEPCID PO (08:38)
[2024-09-03] MEDS: LASIX 20 MG IV ×2 (08:39→15:38)
[2024-09-03] MEDS: HEPARIN 5000 UNITS SC ×2 (08:39→20:27)
--- NOTE | 2024-09-03 08:50 | PTOTSP ---
Speech-Language Pathology
Pt seen for clinical bedside swallow evaluation. Known to CORDWOOD CUTTER with previous VSE completed 07/21/22 with findings of WFL to mild dysphagia. Some penetration noted with no aspiration and questionable small Zenker's diverticulum.
Swelling of L face/neck noted. Significant dysphonia and frequent throat clearing noted. Pt stated dysphonia is baseline from COPD and throat clearing is habitual. P.O. trials of puree and thin liquids provided. Drooling noted when attempting to
drink at times. Pt denied decreased sensation. No oral residue with P.O. intake. Occasional throat clearing noted with P.O. intake, similar to at rest. No overt coughing. Pt is at increased risk for aspiration given face/neck swelling.
Recommend:
(1) VSE
(2) NPO except sips of thin water until VSE completed
(3) Oral care 4x/day with suctioning as needed
(4) Non-oral meds until VSE completed
(5) CORDWOOD CUTTER to continue to follow
--- NOTE | 2024-09-03 08:52 | W.PN.HOSP.TC ---
Today's Communication/Plan
-
see A/P
Assessment / Plan
Assessment / Plan
HPI: 89-year-old female with past medical history significant for chronic obstructive pulmonary disease on prednisone, hypertension, chronic pneumonia, bullous pemphigoid; p/w a few days of bilateral lower extremity swelling, orthopnea, worsening
shortness of breath and intermittent hypoxia in addition to ongoing chronic cough.
She actually arose in the morning with pain and swelling over the left side of her jaw. It has worsened since initial presentation. She has not had any fevers or chills.
CT chest and neck:
Findings suggestive of left-sided parotiditis. No fluid collections.
Severe L1 compression fracture, new from 12/03/2023 and age indeterminate.
Partially healed sternal body fracture, new from prior.
A/P:
# L Parotitis- suspected acute proctitis.
Cont cefepime and Flagyl
Pain control with Tylenol PRN
warm compress over L parotid gland
ID consult
ENT CS
SPL recc VSE, ordered
# Likely acute on chronic CHF, unclear type
Started Lasix 20 mg IV twice daily
Daily weights and I/O
Check Echo
Cardiology consult
# COPD- chronic cough but appears stable and no new changes on CT
Continue home nebulizer treatments, inhaler
Oxygen as needed to keep sats greater than 90, pt not on home O2
Continue TRIM MECHANIC standing prednisone 20 mg
DVT prophylaxis�heparin subcu
CODE STATUS�DNR
DW RN
DW SPL
updated daughter on the phone
total time spent 51 min
Anticipated Discharge: 24 - 48 hours
Subjective/Interval History
-
Date of Service: September 03, 2024
Objective Data
-
Labs:
Laboratory Results
09/03/24
08:00
WBC 16.3 H
Hgb 8.9 L
Hct 26.0 L
Plt Count 261 D
Sodium Pending
Potassium Pending
Chloride Pending
Carbon Dioxide Pending
BUN Pending
Creatinine Pending
Glucose Pending
Calcium Pending
Vital Signs:
Vital Signs
Temp Pulse Resp BP Pulse Ox
36.4 C 85 20 111/47 94
09/03/24 07:48 09/03/24 08:14 09/03/24 08:14 09/03/24 07:48 09/03/24 08:14
Review of Systems
-
History Source: Patient
All other systems: Reviewed and negative
Physical Exam
-
General: Well Developed, Well Nourished, No Apparent Distress and Comfortable
HEENT: Normocephalic, Atraumatic, Moist Mucous Membranes, Nose Appears Normal and Neck Masses (L side); Negative Oxygen
Respiratory: Clear to Auscultation, Non Labored Respirations and Other (harsh breath sound, appears chronic); Negative Crackles or Accessory Resp Muscle Use
Cardiac: Regular Rhythm and S1/S2
Breast: Deferred by me
GI: Soft, Nontender, Nondistended and Normal Bowel Sounds
Genito-urinary: No Costovertebral Tender
Musculoskeletal: No Clubbing, No Cyanosis and No Edema
Skin: Warm
Neuro: Awake, Alert, Oriented and AO x 3
Psych: Calm and Intact Judgement/Insight
Data Reviewed
-
CT Scan: Report Reviewed by me
Labs: Labs Reviewed by me
[2024-09-03 09:23] LABS: TSH Reflex To Free T4 1.99 uIU/ml (0.47-4.68)
[2024-09-03 09:31] LABS: Blood Urea Nitrogen 54 mg/dl (7-17); Calcium 7.7 mg/dl (8.4-10.2); Carbon Dioxide 24 mmol/L (22-30); Chloride 101 mmol/L (98-107); Estimated Creatinine Clearance 23 ml/min; Glucose 31 mg/dl (70-99); HDL Cholesterol 26 mg/dl; LDL Cholesterol, Calculated 23 mg/dl; Potassium 3.6 mmol/L (3.5-5.1); Sodium 135 mmol/L (135-145); Total Cholesterol 64 mg/dl (50-199); Triglyceride 76 mg/dl (10-149); Very Low Density Lipoprotein 15 mg/dl (0-30); eGFR 36.19
--- NOTE | 2024-09-03 09:40 | WOUNDNOTE ---
LOIDA RN NOTE: Patient off the floor, unable to see patient for R vicente abrasion. Nurse Trinh will assess wound when patient returns and notify wound care if need to see or cancel consult.
--- NOTE | 2024-09-03 09:50 | PTOTSP ---
Speech Language Pathology
VIDEOFLUOROSCOPIC SWALLOWING EXAMINATION (VSE) completed. Mild-mod oral and mild pharyngeal dysphagia noted. Trace to mild pharyngeal residue noted with no penetration/aspiration. Discussed initiating IDDSI 5 vs 6 with pt. She would like to
trial IDDSI 6.
Recommend:
(1) IDDSI Level 6 (soft/bite-sized) and thin liquids
(2) Aspiration precautions: slow rate, sit upright, chew food thoroughly, ensure oral cavity clear post P.O. intake
(3) Meds as tolerated
(4) JOURNALISM INTERN to continue to follow
--- NOTE | 2024-09-03 10:04 | PTCARENOTE ---
Patient with blood glucose via lab 31. Pt asymptomatic. Dr Lobo on floor and aware. 4 ounces apple juice given . No complaints at present.
[2024-09-03 10:59] LABS: Glucose - Point of Care 84 mg/dl (70-99)
--- NOTE | 2024-09-03 11:05 | CON.ID ---
Consultation
-
Date/Time Consultation Requested: September 02, 2024 9901
Date/Time Consultation Performed: September 03, 2024 1110
Requesting Provider: Dr. Nedra Lobo
Performing Provider: Dr. Susana Booth
Reason for Consultation: Facial cellulitis
Chief Complaint / Past History
Chief Complaint
Left-sided facial swelling
History of Present Illness
89-year-old female with history of moderate COPD, chronic bronchitis, hypertension who presented to the hospital yesterday from SNF due to worsening shortness of breath, lower extremity edema, and left facial swelling. Patient reports she woke up
yesterday and noted discomfort on her left face. Face was swollen and red. No fevers or chills. Has difficulty swallowing. In ED white count 16. Afebrile. CT of the chest and neck showed left parotiditis. Patient reports that she does tend to
have dry mouth.
Past History
Additional Past Medical History:
Moderate COPD
Bullous pemphigoid
HLD chronic bronchitis
Hypertension
IBS
Basal cell carcinoma status post Mohs surgery
History of subdural hematoma due to fall
Chronic right ptosis
Cholecystectomy
Right myringotomy
Allergy History:
codeine Allergy (Verified 09/02/24 23:26)
'makes me hyper'
Penicillins Allergy (Verified 07/12/24 11:20)
Rash
Medications Reviewed: Yes
Current Antibiotics:
Cefepime
Metronidazole
Social History
Tobacco: Non-Smoker
Alcohol: None
Drug: None
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
Family History
Family History: Not Pertinent
Review of Systems
Review of Systems
General: Negative Fever, Chills or Change in Appetite
HEENT: Negative Stiff Neck, Sinus Problems, Headache or Pharyngitis
Cardiovascular: Dyspnea and Edema; Negative Chest Pain
Respiratory: Negative Cough
Gasteroenterology: Negative Nausea, Vomiting or Diarrhea
Genital / Urological: Negative Dysuria or Flank Pain
Endocrine: Weakness
Neurological: Negative Dizziness
All systems: All other systems were reviewed and were negative
Vital Signs
Temp Pulse Resp BP Pulse Ox
97.5 F 85 20 111/47 94
09/03/24 07:48 09/03/24 08:14 09/03/24 08:14 09/03/24 07:48 09/03/24 08:14
Physical Exam
Physical Exam
Constitutional: No Acute Distress and Comfortable
Head: Other (Left parotid indurated, warm, erythema extend to neck)
Eyes: No Conjunctival Hemorrhage and Sclera Anicteric
Cardiovascular: Regular Rate and S1/S2
Pulmonary: Clear
Gastrointestinal: Soft, Non Tender and Non Distended
Genito-Urinary: Negative CVA Tenderness
Extremities: Edema (2+ BLE)
Neurological: AO x 3
Lab / Diagnostic Study Results
09/03/24 08:00
09/03/24 08:00
Abs Immat Gran (auto) 0.1 10^3/uL (0-0.05) H 09/02/24 19:02
Absolute Neuts (auto) 14.4 10^3/uL (1.4-6.5) H 09/02/24 19:02
Absolute Lymphs (auto) 0.6 10^3/uL (1.2-3.4) L 09/02/24 19:02
Absolute Monos (auto) 1.0 10^3/uL (0.1-0.6) H 09/02/24 19:02
Absolute Basos (auto) 0.0 10^3/uL (0-0.2) 09/02/24 19:02
Immature Gran % 0.9 % (0-0.5) H 09/02/24 19:02
Neutrophils % 89.5 % (42.2-75.2) H 09/02/24 19:02
Lymphocytes % 3.6 % (20.5-51.1) L 09/02/24 19:02
Monocytes % 5.9 % (1.7-9.3) 09/02/24 19:02
Eosinophils % 0.0 % (0-6) 09/02/24 19:02
Basophils % 0.1 % (0-2) 09/02/24 19:02
Microbiology Results
Micro:
09/03/24 03:37 MRSA Screen - Pending
Nose
09/[address]: Findings suggestive of left-sided parotiditis. No fluid collections. Severe L1 compression fracture, new from 12/03/2023 and age indeterminate.
Assessment / Plan
# Acute left parotiditis
# Leukocytosis
# PCN allergy
- Agree with cefepime and metronidazole
- Warm compress to parotid
- Oral hydration
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
Moderate COPD
Bullous pemphigoid
HLD chronic bronchitis
Hypertension
IBS
Basal cell carcinoma status post Mohs surgery
History of subdural hematoma due to fall
Chronic right ptosis
Cholecystectomy
Right myringotomy
[2024-09-03] MEDS: DELTASONE 20 MG PO (11:56)
[2024-09-03] MEDS: PAXIL 30 MG PO (13:01)
--- NOTE | 2024-09-03 14:26 | CM ---
CM reviewed chart, reviewed with Nurse. Patient seen bedside, initial assessment completed. Patient resides independently at [facility] location. Patient has a rollator for ambulation, is current with [facility]. Patient reports she has
been to [facility] in past. Patient PCP Dotty Astorga, pharmacy [facility], confirms prescription coverage. CM discussed PT recommendations of SNF vs home health, patient agreeable to referral to [facility], placed in [facility]. CM will
continue to follow for all discharge planning needs.
Plan; referral to [facility] SNF
--- NOTE | 2024-09-03 15:26 | CON.MD ---
Consultation - Medical
-
dictated.
Acute L Parotitis, severe, probably incited by dehydration.
She denies any actual dysphagia, when she said she had swallowing problems she was referring to her chronic cough.
Continue abx as per ID, massage gland as tolerated, IV hydration as much as possible, will order lemon wedges.
Will follow.
[2024-09-03] MEDS: TYLENOL 650 MG PO (15:47)
[2024-09-03 17:17] LABS: Glucose - Point of Care 143 mg/dl (70-99)
[2024-09-03] MEDS: MUCINEX 1200 MG PO (20:26)
[2024-09-03] MEDS: APRESOLINE 50 MG PO (20:27)
[2024-09-03 22:01] LABS: Glucose - Point of Care 222 mg/dl (70-99)
[2024-09-04 03:11] VITALS: BP 138/66
[2024-09-04] MEDS: MAXIPIME 1000 MG IV ×3 (05:26→21:20)
[2024-09-04] MEDS: FLAGYL 500 MG 100 IV ×3 (05:26→21:20)
[2024-09-04] MEDS: STERILE WATER FOR INJECTION 10 ML IV ×3 (05:27→21:20)
[2024-09-04 06:00] VITALS: BMI 19.8
[2024-09-04 07:05] VITALS: BP 163/83
[2024-09-04] MEDS: PULMICORT 0.5 MG INH ×2 (07:33→20:02)
[2024-09-04] MEDS: DUONEB 3 ML INH ×4 (07:33→20:02)
[2024-09-04] MEDS: SODIUM CHLORIDE 3% FOR INHALATION 1 VIAL INH ×2 (07:33→20:02)
[2024-09-04 07:56] LABS: Glucose - Point of Care 139 mg/dl (70-99)
[2024-09-04 08:16] LABS: Hematocrit 26.6 % (37.0-47.0); Hemoglobin 8.9 g/dL (12.0-16.0); Mean Corp Hgb Conc. 33.5 g/dL (33.0-37.0); Mean Corpuscular Hgb 26.8 pg (27.0-31.0); Mean Corpuscular Volume 80.1 fL (81.0-99.0); Mean Platelet Volume 9.9 fL (7.4-10.4); Platelet Count 247 10^3/uL (130-400); Red Blood Cell Count 3.32 10^6/uL (4.20-5.40); Red Cell Dist. Width 14.8 % (11.5-14.5); White Blood Cell Count 14.5 10^3/uL (4.8-10.8)
[2024-09-04 08:56] LABS: % Basophils 0.6 % (0-2); % Eosinophils 0.1 % (0-6); % Immature Granulocytes 0.6 % (0-0.5); % Lymphocytes 6.1 % (20.5-51.1); % Monocytes 5.7 % (1.7-9.3); % Neutrophils 86.9 % (42.2-75.2); Absolute Basophils 0.1 10^3/uL (0-0.2); Absolute Immature Granulocytes 0.1 10^3/uL (0-0.05); Absolute Lymphocytes 0.9 10^3/uL (1.2-3.4); Absolute Monocytes 0.8 10^3/uL (0.1-0.6); Absolute Neutrophils 12.6 10^3/uL (1.4-6.5); Nucleated Red Blood Cells % 0 %
[2024-09-04] MEDS: MUCINEX 1200 MG PO ×2 (09:51→19:52)
[2024-09-04] MEDS: APRESOLINE 50 MG PO ×2 (09:51→19:55)
[2024-09-04] MEDS: PEPCID 20 MG PO (09:51)
[2024-09-04] MEDS: CORGARD 40 MG PO (09:52)
[2024-09-04] MEDS: HEPARIN 5000 UNITS SC ×2 (09:52→19:52)
[2024-09-04] MEDS: LASIX 20 MG IV ×2 (09:52→18:04)
[2024-09-04 11:03] LABS: Blood Urea Nitrogen 54 mg/dl (7-17); Calcium 7.6 mg/dl (8.4-10.2); Carbon Dioxide 26 mmol/L (22-30); Chloride 103 mmol/L (98-107); Estimated Creatinine Clearance 25 ml/min; Glucose 101 mg/dl (70-99); Magnesium 1.7 mg/dl (1.6-2.3); Potassium 3.4 mmol/L (3.5-5.1); Sodium 138 mmol/L (135-145); eGFR 39.55
[2024-09-04 11:30] VITALS: BP 131/59
[2024-09-04 12:02] LABS: Glucose - Point of Care 140 mg/dl (70-99)
--- NOTE | 2024-09-04 12:06 | W.PN.ENT ---
Today's Communication
-
L acute parotitis, compounded by xerostomia
Will order more aggressive oral care which should help.
continue abx, hydration, sialogogues
will follow
Impression / Plan
-
L acute parotitis, compounded by xerostomia
Will order more aggressive oral care which should help.
continue abx, hydration, sialogogues
will follow
Subjective Data
-
no change L neck pain and swelling. +po's. using lemon wedges.
Objective Data
-
Vital Signs
Temp Pulse Resp BP Pulse Ox
97.9 F 81 18 131/59 94
09/04/24 11:30 09/04/24 11:30 09/04/24 11:30 09/04/24 11:30 09/04/24 11:30
Intake & Output
09/03/24 09/04/24 09/05/24
06:59 06:59 06:59
Intake:
Oral fluids 720 / 720
Other:
How many times incontinent 2
MODERATE amount urine
How many times incontinent 2 5
SATURATED amount urine
Lab Results
09/04/24 07:25
09/04/24 07:25
Calcium 7.6 mg/dl (8.4-10.2) L 09/04/24 07:25
Magnesium 1.7 mg/dl (1.6-2.3) 09/04/24 07:25
Total Bilirubin 0.7 mg/dl (0.2-1.3) 09/02/24 19:02
AST 29 U/L (14-36) 09/02/24 19:02
ALT 24 U/L (0-35) 09/02/24 19:02
Alkaline Phosphatase 104 U/L (38-126) 09/02/24 19:02
Triglycerides 76 mg/dl (10-149) 09/03/24 08:00
LDL Cholesterol, Calc 23 mg/dl 09/03/24 08:00
VLDL Cholesterol, Calc 15 mg/dl (0-30) 09/03/24 08:00
HDL Cholesterol 26 mg/dl 09/03/24 08:00
Physical Exam
-
L parotid indurated, no fluctuance, less tender, still erythema. still with severe submandibular/submental edema.
Oral Cavity and pharynx severely dry, with inspissated secretions. I debrided much of it with swab and saline. no dc from Prashanth's duct, no papable stone.
--- NOTE | 2024-09-04 12:11 | W.PN.HOSP.TC ---
Addendum entered and electronically signed by Elizabeth Lobo MD 09/04/24 13:24:
Updated daughter on the phone
Daughter expressed concern of patient's current lethargy, can check CT head.
No need to check UA as patient already on cefepime.
Informed RN
Original Note:
Today's Communication/Plan
-
see A/P
Assessment / Plan
Assessment / Plan
HPI: 89-year-old female with past medical history significant for chronic obstructive pulmonary disease on prednisone, hypertension, chronic pneumonia, bullous pemphigoid; p/w a few days of bilateral lower extremity swelling, orthopnea, worsening
shortness of breath and intermittent hypoxia in addition to ongoing chronic cough.
She actually arose in the morning with pain and swelling over the left side of her jaw. It has worsened since initial presentation. She has not had any fevers or chills.
CT chest and neck:
Findings suggestive of left-sided parotiditis. No fluid collections.
Severe L1 compression fracture, new from 12/03/2023 and age indeterminate.
Partially healed sternal body fracture, new from prior.
A/P:
# L parotiditis- suspected acute parotiditis
Cont cefepime and Flagyl per ID
Pain control with Tylenol PRN
warm compress over L parotid gland,
Cont to massage gland and use lemon wedges per ENT
SPL/VSE cleared for soft/bite size food
# Likely acute on chronic diastolic HF
Cont Lasix 20 mg IV twice daily
Daily weights and I/O
Echo: EF 55-60%. Stage II diastolic dysfunction. Mild mitral regurgitation. Compared to the previous echo 03/07/21, there is little significant change.
Cardiology on board
Continue DIETARY ASSISTANT nadolol and hydralazine.
# COPD- chronic cough but appears stable and no new changes on CT
Continue home nebulizer treatments, inhaler
Oxygen as needed to keep sats greater than 90, pt not on home O2
Continue DIETARY ASSISTANT standing prednisone 20 mg
DVT prophylaxis�heparin subcu
CODE STATUS�DNR
Dispo: PT OT recc SNF vs HH
Anticipated Discharge: 24 - 48 hours
Subjective/Interval History
-
Date of Service: September 04, 2024
Objective Data
-
Labs:
Laboratory Results
09/04/24
07:25
WBC 14.5 H
Hgb 8.9 L
Hct 26.6 L
Plt Count 247
Sodium 138
Potassium 3.4 L
Chloride 103
Carbon Dioxide 26
BUN 54 H
Creatinine 1.3 H
Glucose 101 H
Calcium 7.6 L
Vital Signs:
Vital Signs
Temp Pulse Resp BP Pulse Ox
36.6 C 81 18 131/59 94
09/04/24 11:30 09/04/24 11:30 09/04/24 11:30 09/04/24 11:30 09/04/24 11:30
I&O
09/03/24 09/04/24 09/05/24
06:59 06:59 06:59
Intake Total 720 / 720
Balance 720 / 720
Review of Systems
-
History Source: Patient
All other systems: Reviewed and negative
Physical Exam
-
General: Well Developed, Well Nourished, No Apparent Distress and Comfortable
HEENT: Normocephalic, Atraumatic, Moist Mucous Membranes, Nose Appears Normal and Neck Masses (L side); Negative Oxygen
Respiratory: Clear to Auscultation, Non Labored Respirations and Other (harsh breath sound, appears chronic); Negative Crackles or Accessory Resp Muscle Use
Cardiac: Regular Rhythm and S1/S2
Breast: Deferred by me
GI: Soft, Nontender, Nondistended and Normal Bowel Sounds
Genito-urinary: No Costovertebral Tender
Musculoskeletal: No Clubbing, No Cyanosis and No Edema
Skin: Warm
Neuro: Awake, Alert, Oriented and AO x 3
Psych: Calm and Intact Judgement/Insight
Data Reviewed
-
CT Scan: Report Reviewed by me
Labs: Labs Reviewed by me
--- NOTE | 2024-09-04 12:35 | W.PN.ID1 ---
Date of Service
Date of Service: September 04, 2024
Today's Communication
Continue cefepime/metronidazole.
Assessment / Plan
# Acute left parotiditis, improving
# Leukocytosis - improving
# PCN allergy
- Continue cefepime and metronidazole (d2)
- Warm compress to parotid
- Regimen for Xerostomia
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
Moderate COPD
Bullous pemphigoid
HLD chronic bronchitis
Hypertension
IBS
Basal cell carcinoma status post Mohs surgery
History of subdural hematoma due to fall
Chronic right ptosis
Cholecystectomy
Right myringotomy
Chief Complaint
-: Other (parotitis)
Subjective / Review of Systems
Left face better.
Vital Signs / Physical Exam
Vital Signs
Vital Signs
Temp Pulse Resp BP Pulse Ox
97.9 F 81 18 131/59 94
09/04/24 11:30 09/04/24 11:30 09/04/24 11:30 09/04/24 11:30 09/04/24 11:30
Physical Exam
Constitutional: No Acute Distress and Comfortable
Head: Other (Left parotid induration slightly decreasing, + erythema and ternderness)
Pulmonary: Clear
Gastrointestinal: Soft, Non Tender and Non Distended
Genito-Urinary: Negative CVA Tenderness
Objective Data
Lab Data
Lab Results
09/04/24 07:25
09/04/24 07:25
Estimated Creat Clear 25 ml/min 09/04/24 07:25
Total Bilirubin 0.7 mg/dl (0.2-1.3) 09/02/24 19:02
AST 29 U/L (14-36) 09/02/24 19:02
ALT 24 U/L (0-35) 09/02/24 19:02
Alkaline Phosphatase 104 U/L (38-126) 09/02/24 19:02
Most recent labs reviewed.
Micro Results:
09/03/24 03:37 MRSA Screen - Final
Nose No Methicillin Resistant Staphylococcus aureus isolated.
09/[address]: Findings suggestive of left-sided parotiditis. No fluid collections. Severe L1 compression fracture, new from 12/03/2023 and age indeterminate.
[2024-09-04] MEDS: DELTASONE 20 MG PO (13:15)
--- NOTE | 2024-09-04 13:18 | WOUNDNOTE ---
RIGHT LOWER LEG
[2024-09-04] MEDS: PAXIL 30 MG PO (13:30)
--- NOTE | 2024-09-04 13:30 | W.PN.CARDCBS ---
Addendum entered and electronically signed by Felice Scruggs MD 09/04/24 16:39:
patient off the floor
i did discuss plan of care with patient daughter
await results from her cranial imaging
agree with CHANDLER Amato's notes and assessment
agree with CHANDLER Amato's plan
exam:
deferred
PCP: Dr. Dotty Astorga
Card: None prior to admission
Pulm: Dr. Abraham
Impression:
Admitted with acute HF and parotiditis 09/02/24
Recent admission for syncope 07/12/2024 until 07/14/2024
Left-sided parotiditis and facial cellulitis
h/o MRSA
Acute HFpEF
GENET
ILD
COPD
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
Echo 03/07/2021: EF 60 to 65%, stage II diastolic dysfunction, posterior MAC, moderate MR, aortic sclerosis without stenosis, moderate TR with PAP 41 mmHg
Echo 09/03/2024: EF 55 to 60%, stage II diastolic dysfunction, normal RV size and function, mild mitral regurgitation, mild to moderate TR with PAP 47 mmHg
Plan:
-Weight is down at least 1 lb this admission with Lasix 20 mg IV BID. Patient was taking Lasix 20 mg every other day until just prior to admission when the dose was increased to 20 mg daily to help with increased LE edema. Suspect the patient
should go home on either Lasix 40 mg PO daily or 20 mg PO BID.
-Labs reviewed by me and Cre improved to 1.3 on 09/04/2024
-EF preserved with mild MR by echo which was reviewed by me and summarized above. I also reviewed the patient's echo and hospital course thus far with the patient's daughter in the room on 09/04/2024, her daughter is also named Rosa.
-Outpatient dose of nadolol 40 mg daily has been continued
-Patient was not taking SGLT2 inhibitor prior to admission, will not start with GENET
-Patient was not taking aldosterone antagonist prior to admission, will not start with GENET
Original Note:
Today's Communication / Plan
-
Cont Lasix 20 mg IV BID and consider switching to POs in AM
Impression / Plan
-
PCP: Dr. Dotty Astorga
Card: None prior to admission
Pulm: Dr. Abraham
Impression:
Admitted with acute HF and parotiditis 09/02/24
Recent admission for syncope 07/12/2024 until 07/14/2024
Left-sided parotiditis and facial cellulitis
h/o MRSA
Acute HFpEF
GENET
ILD
COPD
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
Echo 03/07/2021: EF 60 to 65%, stage II diastolic dysfunction, posterior MAC, moderate MR, aortic sclerosis without stenosis, moderate TR with PAP 41 mmHg
Echo 09/03/2024: EF 55 to 60%, stage II diastolic dysfunction, normal RV size and function, mild mitral regurgitation, mild to moderate TR with PAP 47 mmHg
Plan:
-Weight is down at least 1 lb this admission with Lasix 20 mg IV BID. Patient was taking Lasix 20 mg every other day until just prior to admission when the dose was increased to 20 mg daily to help with increased LE edema. Suspect the patient
should go home on either Lasix 40 mg PO daily or 20 mg PO BID.
-Labs reviewed by me and Cre improved to 1.3 on 09/04/2024
-EF preserved with mild MR by echo which was reviewed by me and summarized above. I also reviewed the patient's echo and hospital course thus far with the patient's daughter in the room on 09/04/2024, her daughter is also named Rosa.
-Outpatient dose of nadolol 40 mg daily has been continued
-Patient was not taking SGLT2 inhibitor prior to admission, will not start with GENET
-Patient was not taking aldosterone antagonist prior to admission, will not start with GENET
HPI: Patient came to [facility] ER yesterday with increased cough and low pulse ox and was admitted with parotiditis and acute HF, cardiology is now consulted. Patient is not seeing cardiology before, but did have an echo back on 03/07/2021 that showed
preserved EF with moderate MR. Patient does follow regularly with pulmonology and has a history of a chronic left hemithorax opacification due to mucous plugging from retained secretions and chronic PNA and as a result uses vest therapy and
nebulizers regularly. Patient is also chronically on Lasix 20 mg every other day, but she cannot tell me why she is on that medication and denies any known history of HF. Patient says that after her admission from 07/12/2024 until 07/14/2024 she
returned to her independent living apartment and saw pulmonology for hospital follow-up on 07/25/2024 and they were continuing to manage with chronic doxycycline and steroids, but continued to be symptomatic with fatigue so her supervisor mill
restarted steroids to see if there was a component of adrenal insufficiency and there may have been some improvement. Then starting around 08/13/2024 patient had CP and increased productive cough and declined to see the SKIN SPECIALIST at the pulmonary office,
only wanted to see Dr. Abraham, and instead saw a doctor at her PCP office who managed discomfort as costochondritis. Patient then noted to have increased LE edema and decreased urine output this past weekend and her daughter called the PCP office
and they increase Lasix to 20 mg daily instead of every other day, but this did not make any difference in her LE edema. Patient then had increasing SOB and the pulse ox was low at [facility] yesterday so she came to the ER.
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
Subjective
Date of Service: September 04, 2024
Feels tired, she isn't sure that she's any better
Objective
Labs:
09/04/24 07:25
09/04/24 07:25
Labs
Hgb 8.9 g/dL (12.0-16.0) L 09/04/24 07:25
Hct 26.6 % (37.0-47.0) L 09/04/24 07:25
Plt Count 247 10^3/uL (130-400) 09/04/24 07:25
Sodium 138 mmol/L (135-145) 09/04/24 07:25
Potassium 3.4 mmol/L (3.5-5.1) L 09/04/24 07:25
BUN 54 mg/dl (7-17) H 09/04/24 07:25
Creatinine 1.3 mg/dL (0.6-1.0) H 09/04/24 07:25
Glucose 101 mg/dl (70-99) H 09/04/24 07:25
Troponins
09/02/24
19:02
Troponin I < 0.012
Vital Signs and I&O:
Vital Signs
Temp Pulse Resp BP Pulse Ox
97.9 F 81 18 131/59 94
09/04/24 11:30 09/04/24 11:30 09/04/24 11:30 09/04/24 11:30 09/04/24 11:30
Vital Signs
Temp Pulse Resp BP Pulse Ox
97.9 F 81 18 131/59 94
09/04/24 11:30 09/04/24 11:30 09/04/24 11:30 09/04/24 11:30 09/04/24 11:30
Intake & Output
09/02/24 09/03/24 09/04/24 09/05/24
06:59 06:59 06:59 06:59
Intake Total 720 / 720
Balance 720 / 720
Physical Exam
Physical Exam
GEN: NAD. AAOx3
LUNGS: RA. No audible wheeze
CV: SR on tele.
EXT: Trace B/L edema.
NEURO: Gross non-focal
[2024-09-04 14:06] VITALS: BMI 19.8
--- NOTE | 2024-09-04 14:28 | WOUNDNOTE ---
WO RN NOTE: This sports writer was contacted by [facility] regarding new wound of right sacral/coccyx. Upon assessment wound appears to be a stage 3 PI as it on a pressure point and lightly coved with white/yellow slough. Wound was cleaned and covered
with foam dressing. Plan is to recommend Honey Gel , 2x2 and transparent dressing over wound. Per [facility] and [facility] Val, patient was transferring OOB to commode yesterday. At time of assessment today, patient was very weak but turned with
assistance. Right vicente with venous appearing wound covered in yellow slough. Wound was cleaned and alginate and dry dressing applied. Patient was placed on a right semi-side lying position with heels off-loaded with pillows under calves.
[2024-09-04] MEDS: KCL 270 MEQ IV (15:32)
[2024-09-04 15:41] VITALS: BP 118/55
--- NOTE | 2024-09-04 15:47 | CM ---
engineering design manager reviewed patient's chart and met with patient and per nursing patient's daughter reaching out to [facility] to see if patient can be placed on personal care at discharge, physical therapy are recommending skilled v's home care.
Plan: to follow with sy progress.
[2024-09-04 17:18] LABS: Glucose - Point of Care 91 mg/dl (70-99)
[2024-09-04 21:56] LABS: Glucose - Point of Care 119 mg/dl (70-99)
[2024-09-04 23:00] VITALS: BP 140/70
[2024-09-05] MEDS: STERILE WATER FOR INJECTION 10 ML IV ×2 (05:12→09:19)
[2024-09-05] MEDS: FLAGYL 500 MG 100 IV (05:12)
[2024-09-05] MEDS: MAXIPIME 1000 MG IV (05:12)
[2024-09-05 06:00] VITALS: BMI 18.6
[2024-09-05 07:10] VITALS: BP 174/91
[2024-09-05] MEDS: DUONEB 3 ML INH ×4 (07:50→19:13)
[2024-09-05] MEDS: PULMICORT 0.5 MG INH ×2 (07:50→19:14)
[2024-09-05] MEDS: SODIUM CHLORIDE 3% FOR INHALATION 1 VIAL INH ×2 (07:51→19:13)
[2024-09-05 08:12] LABS: Glucose - Point of Care 62 mg/dl (70-99)
[2024-09-05 08:28] LABS: Glucose - Point of Care 70 mg/dl (70-99)
[2024-09-05 08:46] VITALS: BMI 18.8
[2024-09-05] MEDS: PEPCID 20 MG PO (09:18)
[2024-09-05] MEDS: MUCINEX 1200 MG PO ×2 (09:18→20:24)
[2024-09-05] MEDS: APRESOLINE 50 MG PO ×2 (09:18→20:27)
[2024-09-05] MEDS: CORGARD 40 MG PO (09:18)
[2024-09-05] MEDS: ROCEPHIN 1000 MG IV (09:19)
[2024-09-05] MEDS: HEPARIN 5000 UNITS SC ×2 (09:19→20:23)
[2024-09-05 09:43] LABS: Hematocrit 28.4 % (37.0-47.0); Hemoglobin 9.7 g/dL (12.0-16.0); Mean Corp Hgb Conc. 34.2 g/dL (33.0-37.0); Mean Corpuscular Hgb 27.2 pg (27.0-31.0); Mean Corpuscular Volume 79.6 fL (81.0-99.0); Mean Platelet Volume 10.2 fL (7.4-10.4); Platelet Count 274 10^3/uL (130-400); Red Blood Cell Count 3.57 10^6/uL (4.20-5.40); Red Cell Dist. Width 14.8 % (11.5-14.5); White Blood Cell Count 11.4 10^3/uL (4.8-10.8)
[2024-09-05 09:53] LABS: Blood Urea Nitrogen 42 mg/dl (7-17); Carbon Dioxide 26 mmol/L (22-30); Chloride 105 mmol/L (98-107); Estimated Creatinine Clearance 23 ml/min; Glucose 55 mg/dl (70-99); Magnesium 1.7 mg/dl (1.6-2.3); Sodium 141 mmol/L (135-145); eGFR 39.55
[2024-09-05] MEDS: LASIX 20 MG IV (09:59)
[2024-09-05] MEDS: DEXTROSE 50% SYRINGE 12.5 GRAMS IV (10:00)
[2024-09-05 10:09] LABS: % Basophils 0.2 % (0-2); % Immature Granulocytes 0.5 % (0-0.5); % Lymphocytes 9.2 % (20.5-51.1); % Monocytes 6.5 % (1.7-9.3); % Neutrophils 83.6 % (42.2-75.2); Absolute Immature Granulocytes 0.1 10^3/uL (0-0.05); Absolute Lymphocytes 1.1 10^3/uL (1.2-3.4); Absolute Monocytes 0.7 10^3/uL (0.1-0.6); Absolute Neutrophils 9.5 10^3/uL (1.4-6.5); Nucleated Red Blood Cells % 0 %
--- NOTE | 2024-09-05 10:09 | W.PN.CARDCBS ---
Addendum entered and electronically signed by Jared Crawford MD 09/05/24 15:29:
I saw and examined the patient.
The Engine Repairer's note was reviewed and I agree with the note.
Comment: Briefly, 89-year-old woman past medical history of heart failure with preserved ejection fraction presenting with dyspnea found to be in acute heart failure
Treated with IV diuretics and appears euvolemic on exam today
Plan to transition to p.o. Lasix 20 mg daily starting tomorrow and continue on discharge
We will sign off, please recall as needed
Discussed with patient's daughter at bedside
Original Note:
Today's Communication / Plan
-
Continue abx per ID
Will transition to PO lasix 20mg daily in AM.
BMP in 1 week
Continue nadolol
Follow up arranged
Impression / Plan
-
PCP: Dr. Astorga
Health Technician Hearing: None prior to admission, initially seen by Dr. Mahajan
Pulm: Dr. Abraham
Impression:
Admitted with acute HF and parotiditis 09/02/24
Recent admission for syncope 07/12/2024 until 07/14/2024
Left-sided parotiditis and facial cellulitis
h/o MRSA
Acute HFpEF
GENET
ILD
COPD
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
Echo 03/07/2021: EF 60 to 65%, stage II diastolic dysfunction, posterior MAC, moderate MR, aortic sclerosis without stenosis, moderate TR with PAP 41 mmHg
Echo 09/03/2024: EF 55 to 60%, stage II diastolic dysfunction, normal RV size and function, mild mitral regurgitation, mild to moderate TR with PAP 47 mmHg
Plan:
-Presented with increased cough and SOB. Admitted with acute HF exacerbation and parotiditis.
-Diuresing with IV lasix 20mg BID. Weight down 7lbs this admission. Down to 109 lbs on 09/05.
-Breathing improving. Creat stable at 1.3 overnight.
-Will transition to PO lasix 20mg daily in AM. Was taking lasix 20mg every other day previously.
-Echo 09/03 w/ preserved EF and mild MR as noted above.
-Continue nadolol 40mg daily. No SLGT2 inhibitor or RESHMA/ARB/Aldosterone antagonist due to GENET this admission.
-Check BMP in 1 week as OP
-Continue abx per ID for parotiditis.
-Cardiology follow up arranged.
HPI: Patient came to [facility] ER yesterday with increased cough and low pulse ox and was admitted with parotiditis and acute HF, cardiology is now consulted. Patient is not seeing cardiology before, but did have an echo back on 03/07/2021 that showed
preserved EF with moderate MR. Patient does follow regularly with pulmonology and has a history of a chronic left hemithorax opacification due to mucous plugging from retained secretions and chronic PNA and as a result uses vest therapy and
nebulizers regularly. Patient is also chronically on Lasix 20 mg every other day, but she cannot tell me why she is on that medication and denies any known history of HF. Patient says that after her admission from 07/12/2024 until 07/14/2024 she
returned to her independent living apartment and saw pulmonology for hospital follow-up on 07/25/2024 and they were continuing to manage with chronic doxycycline and steroids, but continued to be symptomatic with fatigue so her parent partner
restarted steroids to see if there was a component of adrenal insufficiency and there may have been some improvement. Then starting around 08/13/2024 patient had CP and increased productive cough and declined to see the IP COUNSEL at the pulmonary office,
only wanted to see Dr. Abraham, and instead saw a doctor at her PCP office who managed discomfort as costochondritis. Patient then noted to have increased LE edema and decreased urine output this past weekend and her daughter called the PCP office
and they increase Lasix to 20 mg daily instead of every other day, but this did not make any difference in her LE edema. Patient then had increasing SOB and the pulse ox was low at [facility] yesterday so she came to the ER.
Progress Note - Health Technician Hearing
Subjective
Date of Service: September 05, 2024
Still uncomfortable from parotiditis. No chest pain. Breathing improved. No LE edema.
Objective
Labs:
09/05/24 08:30
09/05/24 08:30
Labs
Hgb 9.7 g/dL (12.0-16.0) L 09/05/24 08:30
Hct 28.4 % (37.0-47.0) L 09/05/24 08:30
Plt Count 274 10^3/uL (130-400) 09/05/24 08:30
Sodium 141 mmol/L (135-145) 09/05/24 08:30
Potassium 4.0 mmol/L (3.5-5.1) 09/05/24 08:30
BUN 42 mg/dl (7-17) H 09/05/24 08:30
Creatinine 1.3 mg/dL (0.6-1.0) H 09/05/24 08:30
Glucose 55 mg/dl (70-99) L* 09/05/24 08:30
Troponins
09/02/24
19:02
Troponin I < 0.012
Vital Signs and I&O:
Vital Signs
Temp Pulse Resp BP Pulse Ox
98.3 F 75 16 174/91 95
09/05/24 07:10 09/05/24 07:51 09/05/24 07:51 09/05/24 07:10 09/05/24 07:51
Vital Signs
Temp Pulse Resp BP Pulse Ox
98.3 F 75 16 174/91 95
09/05/24 07:10 09/05/24 07:51 09/05/24 07:51 09/05/24 07:10 09/05/24 07:51
Intake & Output
09/03/24 09/04/24 09/05/24 09/06/24
06:59 06:59 06:59 06:59
Intake Total 720 / 720 440 / 440
Balance 720 / 720 440 / 440
Physical Exam
Physical Exam
GEN: No distress, awake, alert, oriented x3
HEENT: supple, anicteric, mmm
LUNGS: scattered rhonchi that clear w/cough, no wheezes
CV: Reg, S1/S2, no murmur
EXT: No clubbing, cyanosis, or edema
NEURO: Gross non-focal
SKIN: Warm, dry
[2024-09-05 10:19] LABS: Glucose - Point of Care 150 mg/dl (70-99)
--- NOTE | 2024-09-05 11:17 | W.PN.ID1 ---
Date of Service
Date of Service: September 05, 2024
Today's Communication
Transition to cefuroxime 500mg po daily through 09/11/24.
Assessment / Plan
# Acute left parotiditis, improving
# Leukocytosis - improving
# PCN allergy
- DC cefepime/ metronidazole
- Transition to cefuroxime 500mg po daily through 09/11/24.
- Continue regimen for Xerostomia
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
Moderate COPD
Bullous pemphigoid
HLD chronic bronchitis
Hypertension
IBS
Basal cell carcinoma status post Mohs surgery
History of subdural hematoma due to fall
Chronic right ptosis
Cholecystectomy
Right myringotomy
Chief Complaint
-: Other (parotitis)
Subjective / Review of Systems
Left face not as painful.
Vital Signs / Physical Exam
Vital Signs
Vital Signs
Temp Pulse Resp BP Pulse Ox
98.3 F 75 16 174/91 95
09/05/24 07:10 09/05/24 07:51 09/05/24 07:51 09/05/24 07:10 09/05/24 07:51
Physical Exam
Constitutional: No Acute Distress and Comfortable
Head: Other (Left parotid decreasing induration and erythema)
Eyes: Sclera Anicteric
Cardiovascular: Regular Rate and S1/S2
Pulmonary: Clear (right lung), Non Labored and Other
Gastrointestinal: Soft, Non Tender and Normal Bowel Sounds
Genito-Urinary: Negative CVA Tenderness
Neurological: Awake and Alert
Objective Data
Lab Data
Lab Results
09/05/24 08:30
09/05/24 08:30
Estimated Creat Clear 23 ml/min 09/05/24 08:30
Total Bilirubin 0.7 mg/dl (0.2-1.3) 09/02/24 19:02
AST 29 U/L (14-36) 09/02/24 19:02
ALT 24 U/L (0-35) 09/02/24 19:02
Alkaline Phosphatase 104 U/L (38-126) 09/02/24 19:02
Most recent labs reviewed.
Micro Results:
09/03/24 03:37 MRSA Screen - Final
Nose No Methicillin Resistant Staphylococcus aureus isolated.
09/[address]: Findings suggestive of left-sided parotiditis. No fluid collections. Severe L1 compression fracture, new from 12/03/2023 and age indeterminate.
Care Review
Plan reviewed with: Physician (Dr. Lobo)
[2024-09-05 11:28] VITALS: BP 122/61; BP 128/68; BP 145/72; PULSE 73; O2SAT 95
--- NOTE | 2024-09-05 11:47 | W.PN.HOSP.TC ---
Today's Communication/Plan
-
see A/P
Assessment / Plan
Assessment / Plan
HPI: 89-year-old female with past medical history significant for chronic obstructive pulmonary disease on prednisone, hypertension, chronic pneumonia, bullous pemphigoid; p/w a few days of bilateral lower extremity swelling, orthopnea, worsening
shortness of breath and intermittent hypoxia in addition to ongoing chronic cough.
She actually arose in the morning with pain and swelling over the left side of her jaw. It has worsened since initial presentation. She has not had any fevers or chills.
CT chest and neck:
Findings suggestive of left-sided parotiditis. No fluid collections.
Severe L1 compression fracture, new from 12/03/2023 and age indeterminate.
Partially healed sternal body fracture, new from prior.
A/P:
# L parotiditis- suspected acute parotiditis
Cefepime changed to ceftriaxone for concern of cefepime induced encephalopathy
Cont Flagyl per ID
Pain control with Tylenol PRN
warm compress over L parotid gland,
Cont to massage gland and use lemon wedges per ENT
# acute metabolic encephalopathy
per daughter, pt is fully functional at home
Cefepime changed to ceftriaxone for concern of cefepime induced encephalopathy
CT head NAD
No need to check UA while on current ABx
check MRI brain
SPL/VSE cleared for soft/bite size food
# Likely acute on chronic diastolic HF
Cont Lasix 20 mg IV twice daily
Daily weights and I/O
Echo: EF 55-60%. Stage II diastolic dysfunction. Mild mitral regurgitation. Compared to the previous echo 03/07/21, there is little significant change.
Cardiology on board
Continue SPIRAL BINDER nadolol and hydralazine.
# Hypoglycemia due to poor PO intake
encourage PO intake
D50 as needed
# COPD- chronic cough but appears stable and no new changes on CT
Continue home nebulizer treatments, inhaler
Oxygen as needed to keep sats greater than 90, pt not on home O2
Continue SPIRAL BINDER standing prednisone 20 mg
DVT prophylaxis�heparin subcu
CODE STATUS�DNR
Dispo: PT OT recc SNF vs HH
DW RN
DW daughter at bedside
total time spent 51 min
Anticipated Discharge: > 48 hours
Subjective/Interval History
-
Date of Service: September 05, 2024
Objective Data
-
Labs:
Laboratory Results
09/05/24
08:30
WBC 11.4 H
Hgb 9.7 L
Hct 28.4 L
Plt Count 274
Sodium 141
Potassium 4.0
Chloride 105
Carbon Dioxide 26
BUN 42 H
Creatinine 1.3 H
Glucose 55 L*
Calcium 8.0 L
Vital Signs:
Vital Signs
Temp Pulse Resp BP Pulse Ox
36.8 C 75 16 174/91 95
09/05/24 07:10 09/05/24 11:36 09/05/24 11:36 09/05/24 07:10 09/05/24 11:36
I&O
09/04/24 09/05/24 09/06/24
06:59 06:59 06:59
Intake Total 720 / 720 440 / 440
Balance 720 / 720 440 / 440
Review of Systems
-
History Source: Patient
All other systems: Reviewed and negative
Physical Exam
-
General: Well Developed, Well Nourished, No Apparent Distress, Comfortable, Appears Chronically Ill and Other (lethargic )
HEENT: Normocephalic, Atraumatic, Moist Mucous Membranes, Nose Appears Normal and Neck Masses (L side); Negative Oxygen
Respiratory: Clear to Auscultation and Non Labored Respirations; Negative Crackles or Accessory Resp Muscle Use
Cardiac: Regular Rhythm and S1/S2
Breast: Deferred by me
GI: Soft, Nontender, Nondistended and Normal Bowel Sounds
Genito-urinary: No Costovertebral Tender
Musculoskeletal: No Clubbing, No Cyanosis and No Edema
Skin: Warm
Neuro: Awake and Alert
Psych: Calm
Data Reviewed
-
CT Scan: Report Reviewed by me
Labs: Labs Reviewed by me
[2024-09-05 11:58] LABS: Glucose - Point of Care 165 mg/dl (70-99)
--- NOTE | 2024-09-05 13:05 | W.PN.ENT ---
Today's Communication
-
L acute parotitis, compounded by xerostomia and poor oral hygiene
Continue aggressive oral care, massage gland, hydration, sialogogues
abx have been changed to po cefuroxime due to possible change in mental status
Call us if parotitis worsens or fails to continue to improve
Impression / Plan
-
L acute parotitis, compounded by xerostomia and poor oral hygiene
Continue aggressive oral care, massage gland, hydration, sialogogues
abx have been changed to po cefuroxime due to possible change in mental status
Call us if parotitis worsens or fails to continue to improve
Subjective Data
-
less L neck pain. anorexia but no actual dysphagia. using lemon wedges and receiving oral care
Objective Data
-
Vital Signs
Temp Pulse Resp BP Pulse Ox
98.3 F 75 16 174/91 95
09/05/24 07:10 09/05/24 11:36 09/05/24 11:36 09/05/24 07:10 09/05/24 11:36
Intake & Output
09/04/24 09/05/24 09/06/24
06:59 06:59 06:59
Intake:
Oral fluids 720 / 720 240 / 240
IV piggybacks 200 / 200
Other:
Number of approximated LARGE 1
amounts of urine
How many times incontinent 2 1
MODERATE amount urine
How many times incontinent 5 1
SATURATED amount urine
Lab Results
09/05/24 08:30
09/05/24 08:30
Calcium 8.0 mg/dl (8.4-10.2) L 09/05/24 08:30
Magnesium 1.7 mg/dl (1.6-2.3) 09/05/24 08:30
Total Bilirubin 0.7 mg/dl (0.2-1.3) 09/02/24 19:02
AST 29 U/L (14-36) 09/02/24 19:02
ALT 24 U/L (0-35) 09/02/24 19:02
Alkaline Phosphatase 104 U/L (38-126) 09/02/24 19:02
Triglycerides 76 mg/dl (10-149) 09/03/24 08:00
LDL Cholesterol, Calc 23 mg/dl 09/03/24 08:00
VLDL Cholesterol, Calc 15 mg/dl (0-30) 09/03/24 08:00
HDL Cholesterol 26 mg/dl 09/03/24 08:00
Physical Exam
-
somnolent, responds appropriately
Oral cavity and pharynx still extremely dry. Some inspissated secretions/food residue debrided again. No dc from Prashanth's duct
Neck with less swelling of L parotid, still submantibular/submental edema, diffuse erythema, less tenderness
[2024-09-05] MEDS: DELTASONE 20 MG PO (13:15)
[2024-09-05] MEDS: PAXIL 30 MG PO (13:15)
--- NOTE | 2024-09-05 13:53 | CM ---
CM reviewed chart, patient seen bedside with daughter, discussed recommendation of SNF. Daughter agreeable to [facility] (preferred, [facility] second choice). Daughter reports she is speaking with [facility] to move patient into [facility] after
rehab. Daughter reports patient will have MRI Brain. CM will continue to follow for all discharge planning needs.
Plan; [facility] pending bed availability, when stable
[2024-09-05 15:30] VITALS: BP 147/71
[2024-09-05 16:40] LABS: Glucose - Point of Care 119 mg/dl (70-99)
[2024-09-05 21:05] LABS: Glucose - Point of Care 168 mg/dl (70-99)
[2024-09-05 23:35] VITALS: BP 139/75
[2024-09-06 03:03] LABS: Glucose - Point of Care 164 mg/dl (70-99)
[2024-09-06 05:41] VITALS: BMI 19.5
[2024-09-06 07:07] VITALS: BP 164/77
[2024-09-06] MEDS: SODIUM CHLORIDE 3% FOR INHALATION 1 VIAL INH ×2 (07:50→19:02)
[2024-09-06] MEDS: DUONEB 3 ML INH ×5 (07:51→21:51)
[2024-09-06] MEDS: PULMICORT 0.5 MG INH ×2 (07:51→19:02)
[2024-09-06 07:52] LABS: Glucose - Point of Care 92 mg/dl (70-99)
[2024-09-06] MEDS: CEFTIN 500 MG PO (08:43)
[2024-09-06] MEDS: CORGARD 40 MG PO (08:45)
[2024-09-06] MEDS: APRESOLINE 50 MG PO ×2 (08:45→19:50)
[2024-09-06] MEDS: MUCINEX PO ×2 (08:45→08:51)
[2024-09-06] MEDS: LASIX 20 MG PO (08:46)
[2024-09-06] MEDS: HEPARIN 5000 UNITS SC ×2 (08:46→19:44)
[2024-09-06 09:04] LABS: Lemon <0.10 kU/L (<=0.34)
[2024-09-06 09:44] LABS: % Basophils 0.3 % (0-2); % Eosinophils 0.3 % (0-6); % Immature Granulocytes 0.7 % (0-0.5); % Monocytes 6.1 % (1.7-9.3); % Neutrophils 82.6 % (42.2-75.2); Absolute Immature Granulocytes 0.1 10^3/uL (0-0.05); Absolute Lymphocytes 1.3 10^3/uL (1.2-3.4); Absolute Monocytes 0.8 10^3/uL (0.1-0.6); Absolute Neutrophils 11.1 10^3/uL (1.4-6.5); Hematocrit 29.9 % (37.0-47.0); Hemoglobin 10.2 g/dL (12.0-16.0); Mean Corp Hgb Conc. 34.1 g/dL (33.0-37.0); Mean Corpuscular Hgb 27.3 pg (27.0-31.0); Mean Corpuscular Volume 80.2 fL (81.0-99.0); Nucleated Red Blood Cells % 0 %; Platelet Count 247 10^3/uL (130-400); Red Blood Cell Count 3.73 10^6/uL (4.20-5.40); Red Cell Dist. Width 14.6 % (11.5-14.5); White Blood Cell Count 13.4 10^3/uL (4.8-10.8)
[2024-09-06 10:20] LABS: Blood Urea Nitrogen 40 mg/dl (7-17); Calcium 7.7 mg/dl (8.4-10.2); Carbon Dioxide 31 mmol/L (22-30); Chloride 101 mmol/L (98-107); Estimated Creatinine Clearance 35 ml/min; Glucose 118 mg/dl (70-99); Magnesium 1.7 mg/dl (1.6-2.3); Potassium 4.1 mmol/L (3.5-5.1); Sodium 138 mmol/L (135-145); eGFR > 60.00
[2024-09-06 11:40] LABS: Glucose - Point of Care 128 mg/dl (70-99)
--- NOTE | 2024-09-06 12:41 | PTCARENOTE ---
Assumed care of pt from previous nurse. pt denies pain. Dressings changed per order. Pt call cosby is within reach, pt rings smith. will cont to monitor.
[2024-09-06] MEDS: DELTASONE 20 MG PO (13:28)
[2024-09-06] MEDS: PAXIL 30 MG PO (13:28)
--- NOTE | 2024-09-06 14:36 | W.PN.HOSP.TC ---
Today's Communication/Plan
-
Continue current plans with antibiotics and rest of care.
Assessment / Plan
Assessment / Plan
HPI:
89-year-old female with past medical history significant for chronic obstructive pulmonary disease on prednisone, hypertension, chronic pneumonia, bullous pemphigoid; p/w a few days of bilateral lower extremity swelling, orthopnea, worsening
shortness of breath and intermittent hypoxia in addition to ongoing chronic cough. She actually arose in the morning with pain and swelling over the left side of her jaw. It has worsened since initial presentation. She has not had any fevers or
chills.
CT chest and neck:
Findings suggestive of left-sided parotiditis.
No fluid collections.
Severe L1 compression fracture, new from 12/03/2023 and age indeterminate.
Partially healed sternal body fracture, new from prior.
A/P:
1. L parotiditis- suspected acute parotiditis
Cefepime changed to ceftriaxone for concern of cefepime induced encephalopathy
Cont Flagyl per ID
Pain control with Tylenol PRN
warm compress over L parotid gland,
Cont to massage gland and use lemon wedges per ENT
2. acute metabolic encephalopathy
per daughter, pt is fully functional at home
Cefepime changed to ceftriaxone for concern of cefepime induced encephalopathy
CT head NAD
No need to check UA while on current ABx
check MRI brain
SPL/VSE cleared for soft/bite size food
3. Likely acute on chronic diastolic HF
Cont Lasix 20 mg IV twice daily
Daily weights and I/O
Echo: EF 55-60%.
Stage II diastolic dysfunction.
Mild mitral regurgitation.
Compared to the previous echo 03/07/21, there is little significant change.
Cardiology consulted
Continue CORPORATE ATTORNEY nadolol and hydralazine.
4. Hypoglycemia due to poor PO intake
encourage PO intake
D50 as needed
5. COPD- chronic cough but appears stable and no new changes on CT
Continue home nebulizer treatments, inhaler
Oxygen as needed to keep sats greater than 90, pt not on home O2
Continue CORPORATE ATTORNEY standing prednisone 20 mg
DVT prophylaxis�heparin subcu
CODE STATUS�DNR
Dispo: PT OT recc SNF vs HH
total time spent 51 min
Anticipated Discharge: > 48 hours
Subjective/Interval History
-
Date of Service: September 06, 2024
No new complaints
Objective Data
-
Labs:
Laboratory Results
09/06/24
09:39
WBC 13.4 H
Hgb 10.2 L
Hct 29.9 L
Plt Count 247
Sodium 138
Potassium 4.1
Chloride 101
Carbon Dioxide 31 H
BUN 40 H
Creatinine 0.9
Glucose 118 H
Calcium 7.7 L
Vital Signs:
Vital Signs
Temp Pulse Resp BP Pulse Ox
98.1 F 74 16 164/77 93
09/06/24 07:07 09/06/24 11:09 09/06/24 11:09 09/06/24 08:46 09/06/24 11:09
I&O
09/05/24 09/06/24 09/07/24
06:59 06:59 06:59
Intake Total 440 / 440 0 / 0
Output Total 500 / 500
Balance 440 / 440 -500 / -500
Review of Systems
-
History Source: Patient
Physical Exam
-
General: No Apparent Distress and Comfortable
HEENT: Nose Appears Normal
Respiratory: Clear to Auscultation
Cardiac: Regular Rhythm and S1/S2
GI: Soft, Nontender and Nondistended
Musculoskeletal: No Clubbing, No Cyanosis and No Edema
Skin: Warm and Dry
Neuro: Awake and Alert
Psych: Calm
Data Reviewed
-
Labs: Labs Reviewed by me
[2024-09-06 15:35] VITALS: BP 142/81
[2024-09-06 17:35] LABS: Glucose - Point of Care 146 mg/dl (70-99)
--- NOTE | 2024-09-06 19:05 | PTCARENOTE ---
Pt grossly incontinent multiple times throughout day shift.
[2024-09-06] MEDS: MUCINEX 1200 MG PO (19:45)
[2024-09-06 21:33] LABS: Glucose - Point of Care 273 mg/dl (70-99)
[2024-09-06 23:36] VITALS: BP 172/87
[2024-09-07 00:30] VITALS: BP 133/74
[2024-09-07 06:00] VITALS: BMI 18.6
[2024-09-07 07:06] LABS: % Basophils 0.1 % (0-2); % Eosinophils 0.2 % (0-6); % Lymphocytes 15.5 % (20.5-51.1); % Monocytes 9.1 % (1.7-9.3); % Neutrophils 74.1 % (42.2-75.2); Absolute Immature Granulocytes 0.1 10^3/uL (0-0.05); Absolute Lymphocytes 1.4 10^3/uL (1.2-3.4); Absolute Monocytes 0.9 10^3/uL (0.1-0.6); Absolute Neutrophils 6.9 10^3/uL (1.4-6.5); Hematocrit 28.3 % (37.0-47.0); Hemoglobin 9.5 g/dL (12.0-16.0); Mean Corp Hgb Conc. 33.6 g/dL (33.0-37.0); Mean Corpuscular Volume 80.4 fL (81.0-99.0); Mean Platelet Volume 10.4 fL (7.4-10.4); Nucleated Red Blood Cells % 0 %; Platelet Count 236 10^3/uL (130-400); Red Blood Cell Count 3.52 10^6/uL (4.20-5.40); Red Cell Dist. Width 14.8 % (11.5-14.5); White Blood Cell Count 9.3 10^3/uL (4.8-10.8)
[2024-09-07 07:30] LABS: Blood Urea Nitrogen 34 mg/dl (7-17); Calcium 7.6 mg/dl (8.4-10.2); Carbon Dioxide 31 mmol/L (22-30); Chloride 100 mmol/L (98-107); Estimated Creatinine Clearance 30 ml/min; Glucose 109 mg/dl (70-99); Potassium 3.5 mmol/L (3.5-5.1); Sodium 135 mmol/L (135-145); eGFR 54.19
[2024-09-07 07:35] VITALS: BP 176/90
[2024-09-07] MEDS: PULMICORT 0.5 MG INH ×2 (07:50→19:16)
[2024-09-07] MEDS: SODIUM CHLORIDE 3% FOR INHALATION 1 VIAL INH ×2 (07:50→19:15)
[2024-09-07] MEDS: DUONEB 3 ML INH ×4 (07:50→19:16)
[2024-09-07 08:07] LABS: Glucose - Point of Care 94 mg/dl (70-99)
[2024-09-07] MEDS: MUCINEX PO ×2 (09:15→09:21)
[2024-09-07] MEDS: CORGARD 40 MG PO (09:15)
[2024-09-07] MEDS: PEPCID 20 MG PO (09:16)
[2024-09-07] MEDS: APRESOLINE 50 MG PO ×2 (09:16→22:13)
[2024-09-07] MEDS: CEFTIN 500 MG PO (09:16)
[2024-09-07] MEDS: LASIX 20 MG PO (09:16)
[2024-09-07] MEDS: HEPARIN 5000 UNITS SC ×2 (09:16→22:08)
[2024-09-07 11:43] VITALS: BP 131/73
--- NOTE | 2024-09-07 12:16 | W.PN.HOSP.TC ---
Addendum entered and electronically signed by Dutch Avilez MD 09/07/24 12:24:
PO lasix dosage adjusted by cardiology. Will follow at current PO dose and see how she does.
Original Note:
Today's Communication/Plan
-
Lasix changed to PO
PT consult requested
May be ready to go home Sun or Sunday
Assessment / Plan
Assessment / Plan
HPI:
89-year-old female with past medical history significant for chronic obstructive pulmonary disease on prednisone, hypertension, chronic pneumonia, bullous pemphigoid; p/w a few days of bilateral lower extremity swelling, orthopnea, worsening
shortness of breath and intermittent hypoxia in addition to ongoing chronic cough. She actually arose in the morning with pain and swelling over the left side of her jaw. It has worsened since initial presentation. She has not had any fevers or
chills.
CT chest and neck:
Findings suggestive of left-sided parotiditis.
No fluid collections.
Severe L1 compression fracture, new from 12/03/2023 and age indeterminate.
Partially healed sternal body fracture, new from prior.
A/P:
1. L parotiditis- suspected acute parotiditis
Cefepime changed to ceftriaxone (for concern of cefepime induced encephalopathy), now on po cefuroxime
Pain control with Tylenol PRN
warm compress over L parotid gland,
Cont to massage gland and use lemon wedges per ENT
Once PT gives rehab recs, then Ok to send to appropriate rehab
2. acute metabolic encephalopathy
per daughter, pt is fully functional at home
Cefepime changed to ceftriaxone (for concern of cefepime induced encephalopathy) now on PO cefuroxime
CT head NAD
No need to check UA while on current ABx
checked MRI brain:
No acute intracranial abnormality noted.
Mild atrophy with sequelae of moderate chronic small vessel ischemic disease.
There is heterogeneous enlargement of the left parotid gland, similar to recent prior CT and possibly infectious/inflammatory.
Pansinus disease with T1 hyperintense secretions, likely inspissated secretions in the setting of chronic sinusitis.
SPL/VSE cleared for soft/bite size food
3. Likely acute on chronic diastolic HF
change Lasix 20 mg IV twice daily - to 40 mg po bid in anticipation for discharge
Daily weights and I/O
Echo: EF 55-60%.
Stage II diastolic dysfunction.
Mild mitral regurgitation.
Compared to the previous echo 03/07/21, there is little significant change.
Cardiology consulted
Continue OVERWEAVER nadolol and hydralazine.
4. Hypoglycemia due to poor PO intake
encourage PO intake
D50 as needed
5. COPD- chronic cough but appears stable and no new changes on CT
Continue home nebulizer treatments, inhaler
Oxygen as needed to keep sats greater than 90, pt not on home O2
Continue OVERWEAVER standing prednisone 20 mg
DVT prophylaxis�heparin subcu
CODE STATUS�DNR
Dispo: PT OT recc SNF vs HH
Case d/w daughter at bedside
total time spent 51 min
Anticipated Discharge: 24 - 48 hours
Subjective/Interval History
-
Date of Service: September 07, 2024
Feels well. No new problems
Objective Data
-
Labs:
Laboratory Results
09/07/24
06:52
WBC 9.3
Hgb 9.5 L
Hct 28.3 L
Plt Count 236
Sodium 135
Potassium 3.5
Chloride 100
Carbon Dioxide 31 H
BUN 34 H
Creatinine 1.0
Glucose 109 H
Calcium 7.6 L
Vital Signs:
Vital Signs
Temp Pulse Resp BP Pulse Ox
98.3 F 83 16 131/73 94
09/07/24 07:35 09/07/24 11:34 09/07/24 11:34 09/07/24 11:43 09/07/24 11:34
I&O
09/06/24 09/07/24 09/08/24
06:59 06:59 06:59
Intake Total 0 / 0 240 / 240
Output Total 500 / 500
Balance -500 / -500 240 / 240
Review of Systems
-
History Source: Patient
All other systems: Reviewed and negative
Physical Exam
-
General: Well Developed, Well Nourished, No Apparent Distress and Comfortable
HEENT: No Ptosis, Nose Appears Normal and Ears Appear Normal
Respiratory: Clear to Auscultation
Cardiac: Regular Rhythm and S1/S2
GI: Soft, Nontender and Nondistended
Musculoskeletal: No Clubbing, No Cyanosis and No Edema
Skin: Warm and Dry
Neuro: Awake, Alert and Oriented
Psych: Calm
Data Reviewed
-
Labs: Labs Reviewed by me
[2024-09-07 12:36] LABS: Glucose - Point of Care 137 mg/dl (70-99)
[2024-09-07] MEDS: PAXIL 30 MG PO (13:29)
[2024-09-07] MEDS: DELTASONE 20 MG PO (13:29)
[2024-09-07 15:20] VITALS: BP 137/68
[2024-09-07 17:09] LABS: Glucose - Point of Care 148 mg/dl (70-99)
[2024-09-07 21:34] LABS: Glucose - Point of Care 185 mg/dl (70-99)
[2024-09-07] MEDS: ROBITUSSIN 100 MG PO (22:13)
[2024-09-07 23:00] VITALS: BP 148/71
[2024-09-08 06:00] VITALS: BMI 19.5
[2024-09-08] MEDS: SODIUM CHLORIDE 3% FOR INHALATION 1 VIAL INH (07:35)
[2024-09-08] MEDS: PULMICORT 0.5 MG INH (07:36)
[2024-09-08] MEDS: DUONEB 3 ML INH ×3 (07:36→15:58)
[2024-09-08 08:06] VITALS: BP 171/80
[2024-09-08 08:11] LABS: % Basophils 0.1 % (0-2); % Eosinophils 0.2 % (0-6); % Immature Granulocytes 1.2 % (0-0.5); % Lymphocytes 14.8 % (20.5-51.1); % Monocytes 8.3 % (1.7-9.3); % Neutrophils 75.4 % (42.2-75.2); Absolute Immature Granulocytes 0.1 10^3/uL (0-0.05); Absolute Lymphocytes 1.4 10^3/uL (1.2-3.4); Absolute Monocytes 0.8 10^3/uL (0.1-0.6); Hematocrit 28.7 % (37.0-47.0); Hemoglobin 9.4 g/dL (12.0-16.0); Mean Corp Hgb Conc. 32.8 g/dL (33.0-37.0); Mean Corpuscular Hgb 26.6 pg (27.0-31.0); Mean Corpuscular Volume 81.3 fL (81.0-99.0); Mean Platelet Volume 10.9 fL (7.4-10.4); Nucleated Red Blood Cells % 0 %; Platelet Count 236 10^3/uL (130-400); Red Blood Cell Count 3.53 10^6/uL (4.20-5.40); Red Cell Dist. Width 14.9 % (11.5-14.5); White Blood Cell Count 9.3 10^3/uL (4.8-10.8)
[2024-09-08 08:34] LABS: Glucose - Point of Care 97 mg/dl (70-99)
[2024-09-08] MEDS: CEFTIN 500 MG PO (08:40)
[2024-09-08] MEDS: APRESOLINE 50 MG PO (08:40)
[2024-09-08] MEDS: LASIX 20 MG PO (08:40)
[2024-09-08] MEDS: CORGARD 40 MG PO (08:40)
[2024-09-08] MEDS: HEPARIN 5000 UNITS SC (08:41)
[2024-09-08] MEDS: ROBITUSSIN 100 MG PO (08:53)
[2024-09-08 09:03] LABS: Blood Urea Nitrogen 31 mg/dl (7-17); Calcium 7.8 mg/dl (8.4-10.2); Carbon Dioxide 33 mmol/L (22-30); Chloride 100 mmol/L (98-107); Estimated Creatinine Clearance 32 ml/min; Glucose 87 mg/dl (70-99); Potassium 3.5 mmol/L (3.5-5.1); Sodium 134 mmol/L (135-145); eGFR 54.19
--- NOTE | 2024-09-08 09:05 | W.PN.HOSP.TC ---
Today's Communication/Plan
-
Discharge to short-term rehab today
Assessment / Plan
Assessment / Plan
HPI:
89-year-old female with past medical history significant for chronic obstructive pulmonary disease on prednisone, hypertension, chronic pneumonia, bullous pemphigoid; p/w a few days of bilateral lower extremity swelling, orthopnea, worsening
shortness of breath and intermittent hypoxia in addition to ongoing chronic cough. She actually arose in the morning with pain and swelling over the left side of her jaw. It has worsened since initial presentation. She has not had any fevers or
chills.
CT chest and neck:
Findings suggestive of left-sided parotiditis.
No fluid collections.
Severe L1 compression fracture, new from 12/03/2023 and age indeterminate.
Partially healed sternal body fracture, new from prior.
A/P:
1. L parotiditis- suspected acute parotiditis
Cefepime changed to ceftriaxone (for concern of cefepime induced encephalopathy), now on po cefuroxime through 09/11/24 as per ID
Pain control with Tylenol PRN
warm compress over L parotid gland,
Cont to massage gland and use lemon wedges per ENT
Medically stable for discharge to short-term rehab
2. acute metabolic encephalopathy
per daughter, pt is fully functional at home
Cefepime changed to ceftriaxone (for concern of cefepime induced encephalopathy) now on PO cefuroxime
CT head NAD
No need to check UA while on current ABx
Checked MRI brain:
No acute intracranial abnormality noted.
Mild atrophy with sequelae of moderate chronic small vessel ischemic disease.
There is heterogeneous enlargement of the left parotid gland, similar to recent prior CT and possibly infectious/inflammatory.
Pansinus disease with T1 hyperintense secretions, likely inspissated secretions in the setting of chronic sinusitis.
SPL/VSE cleared for soft/bite size food
3. Likely acute on chronic diastolic HF
Status post IV Lasix, cardiology recommends discharge on her previous home Lasix dose of 20 mg daily
Daily weights and I/O
Echo: EF 55-60%.
Stage II diastolic dysfunction.
Mild mitral regurgitation.
Compared to the previous echo 03/07/21, there is little significant change.
Cardiology consulted
Continue [employer] nadolol and hydralazine.
4. Hypoglycemia due to poor PO intake
Resolved, encourage PO intake
D50 as needed
5. COPD- chronic cough but appears stable and no new changes on CT
Continue home nebulizer treatments, inhaler
Oxygen as needed to keep sats greater than 90, pt not on home O2
Continue [employer] standing prednisone 20 mg
6. Constipation
Start aggressive bowel regimen, which can be continued at the rehab
DVT prophylaxis�heparin subcu
CODE STATUS�DNR
Dispo: PT OT recc SNF vs HH
Physical Exam
General: No acute distress
HEENT: Normocephalic, Atraumatic, EOMI, MMM
Respiratory: Clear to Auscultation bilaterally
Cardiac: Normal S1/S2, Regular Rate and Rhythm
GI: Soft, Nontender, Nondistended, Normal Bowel Sounds
Extremities: No Clubbing, Cyanosis, or Edema
Neuro: Nonfocal/Grossly Intact
Anticipated Discharge: Today
Subjective/Interval History
-
Date of Service: September 08, 2024
Patient reports shortness of breath has resolved. She has a mild cough. She denies left parotid gland pain. She complains of weakness. No fever, no vomiting.
Objective Data
-
Labs:
Laboratory Results
09/08/24
07:22
WBC 9.3
Hgb 9.4 L
Hct 28.7 L
Plt Count 236
Sodium 134 L
Potassium 3.5
Chloride 100
Carbon Dioxide 33 H
BUN 31 H
Creatinine 1.0
Glucose 87
Calcium 7.8 L
Vital Signs:
Vital Signs
Temp Pulse Resp BP Pulse Ox
97.6 F 78 20 171/80 94
09/08/24 08:06 09/08/24 08:40 09/08/24 08:06 09/08/24 08:40 09/08/24 08:06
I&O
09/07/24 09/08/24 09/09/24
06:59 06:59 06:59
Intake Total 240 / 240 600 / 600
Balance 240 / 240 600 / 600
--- NOTE | 2024-09-08 11:06 | W.DCSUMMARY ---
Discharge Summary
Discharge Data
Date of Admission: 09/02/24
Date of Discharge: 09/08/24
-
Pending Results: No
Hospital Course
Discharge diagnosis:
Acute left parotiditis
Leukocytosis
Acute metabolic encephalopathy
Acute heart failure with a preserved ejection fraction
Hypoglycemia due to poor oral intake
Chronic obstructive pulmonary disease
Constipation
Lumbar 1 vertebral compression fracture
Consults: ID, ENT, cardiology
Brain MRI:
No acute intracranial abnormality noted.
Mild atrophy with sequelae of moderate chronic small vessel ischemic disease.
There is heterogeneous enlargement of the left parotid gland, similar to recent prior CT and possibly infectious/inflammatory.
Pansinus disease with T1 hyperintense secretions, likely inspissated secretions in the setting of chronic sinusitis.
Hospital course:
89-year-old female with a past medical history of chronic obstructive pulmonary disease on prednisone, hypertension, and bullous pemphigoid who was admitted for acute left parotiditis and acute heart failure with a preserved ejection fraction.
Patient was seen in conjunction of ENT and ID. She was treated initially with IV cefepime. She then developed confusion, and switched to Rocephin. She had a brain MRI, which is negative. ENT recommends massaging her left parotid gland, and using
lemon wedges. She was then switched to cefuroxime 500 mg p.o. daily, which ID recommends continuing through 09/11/2024.
For her heart failure, patient was seen in conjunction with cardiology, and treated with IV Lasix. After several days, her volume status improved. Cardiology recommends discharge on her previous Lasix dose of 20 mg daily.
Patient has COPD, that is stable and chronic. She is continued on her home prednisone and nebulizer treatments.
Patient had constipation. She was treated with laxatives, and had a bowel movement. She will be discharged on laxatives.
Patient is medically stable for discharge. She needs to follow-up with her primary care provider 1 week after she leaves rehab, and cardiology in the office as scheduled.
Disposition: Short-term rehab
Discharge planning: Required 41 minutes
Discharge Plan
-
Patient Disposition: Skilled Nursing/SNF
Discharge Diagnosis/Procedures: Acute left parotitis, acute on chronic diastolic heart failure, transient confusion, chronic obstructive pulmonary disease, bullous pemphigoid
Condition: Fair
Diet: 2 Gram Sodium and Restrict fluids to 64 oz
Additional Diets: Soft, bite sized food
Activity: As tolerated
Other Services: PT and OT
Specialty Instructions: Weigh Daily- Call MD for wt gain/loss 3 lbs overnight/5 lbs in 1 week
Activity Restrictions/Additional Instructions:
Take cefuroxime 500mg po daily through 09/11/24.
Follow-up with your primary care provider 1 week after you leave rehab, and cardiology as scheduled.
Wound Care Instructions Right Buttock- Clean with Vashe moistened gauze. Apply Honey Gel and cover with 2x2 and secure with transparent dressing. Change Q 48 hours and PRN if soiled or loose.
Right Donato- Clean with normal saline, apply alginate and silicone border foam. Change Q 48 hours and PRN if loose or for drainage.
Air bed
Turning schedule
Keep heels off-loaded with pillow or air cushion under calves
Follow up at wound care center call for an appointment.
Referrals:
Fidel Mahajan MD [Active, Cardiology] - 10/06/24 2:40 pm
Referral Note: You have an appointment to see Dr. Mahajan's physician surgery assistant, Laecy, at the [facility] office on 10/06/2024 at 2:40 PM. You are then scheduled to see Dr. Mahajan at the [facility] office on 12/29/2024 at 1:40 PM.
Dotty Astorga MD [Family Provider, Internal Medicine] - in one week
Prescriptions:
New
acetaminophen 325 mg Tablet
650 mg PO Q6HPRN PRN (Reason: mild pain/ fever>100.5F) Qty: 0 0RF
polyethylene glycol 3350 17 gram Powder In Packet
17 g PO DAILY Qty: 0 0RF
sennosides-docusate sodium 8.6-50 mg Tablet
2 tab PO BID Qty: 0 0RF
famotidine 20 mg Tablet
20 mg PO Q48H Qty: 0 0RF
cefuroxime axetil 500 mg Tablet
500 mg PO DAILY 4 Days Qty: 0 0RF
Continued
nadolol 40 MG tablet
40 mg PO DAILY
PreserVision AREDS-2 250-90-40-1 mg Capsule
1 cap PO BID
furosemide 20 mg Tablet
20 mg PO DAILY
sodium chloride [NebuSal] 3 % Solution For Nebulization
4 ml inhalation R BID Qty: 120 0RF
hydralazine 50 mg Tablet
50 mg PO BID
risedronate 150 mg Tablet
150 mg PO QMONTH
prednisone 10 mg tablet
20 mg PO NOON
budesonide 0.5 mg/2 mL Suspension For Nebulization
0.5 mg inhalation R BID 30 Days Qty: 120 0RF
ipratropium-albuterol 0.5 mg-3 mg(2.5 mg base)/3 mL Solution For Nebulization
3 ml INHALATION R QID Qty: 0 0RF
loperamide 2 mg Capsule
4 mg PO DAILYPRN PRN (Reason: diarrhea)
paroxetine HCl 30 mg Tablet
30 mg PO DAILY@1400
Discontinued
famotidine 20 mg Tablet
20 mg PO DAILY
alprazolam 0.25 mg Tablet
0.125 mg PO NOON PRN (Reason: anxiety)
guaifenesin 1,200 mg Tablet Extended Release 12hr
1,200 mg PO BID
Discharge Orders:
Discharge Patient (As Directed); Ordered 09/08/24
Ordered By: Florentin Merritt
Discharge Date and Time
Print Language: GREENLANDIC
[2024-09-08] MEDS: DULCOLAX 10 MG RECTAL (11:16)
[2024-09-08] MEDS: DELTASONE 20 MG PO (11:16)
[2024-09-08] MEDS: MIRALAX 17 GRAMS PO (11:16)
--- NOTE | 2024-09-08 11:17 | CM ---
CM reviewed pt with Dr Merritt and pt ready for dc
Bed confirmed with admissions/Deya at [facility]
Bedside update to pt and dtr/Rosa
IMM verbally reviewed, copy provided
Medical necessity completed and community relations assistant to arrange for BLS transport
Bed not available until 1600
Discharge Disposition- [facility] via BLS
Phone- [phone] Fax- [phone]
[2024-09-08] MEDS: SENOKOT-S 2 TABLET PO (11:22)
--- NOTE | 2024-09-08 11:59 | W.PN.ID1 ---
Date of Service
Date of Service: September 08, 2024
Today's Communication
Continue cefuroxime 500mg po daily through 09/11/24.
ID will sign off.
Assessment / Plan
# Acute left parotiditis, improving
# Leukocytosis - resolved
# PCN allergy
- s/pc efepime/ metronidazole
- Continue cefuroxime 500mg po daily through 09/11/24.
- Continue regimen for Xerostomia
ID fabio sign off.
# Conditions [employer]
Moderate COPD
Bullous pemphigoid
HLD chronic bronchitis
Hypertension
IBS
Basal cell carcinoma status post Mohs surgery
History of subdural hematoma due to fall
Chronic right ptosis
Cholecystectomy
Right myringotomy
Chief Complaint
-: Other (parotitis)
Subjective / Review of Systems
Face swelling and pain resolved.
Vital Signs / Physical Exam
Vital Signs
Vital Signs
Temp Pulse Resp BP Pulse Ox
97.6 F 82 16 171/80 94
09/08/24 08:06 09/08/24 11:17 09/08/24 11:17 09/08/24 08:40 09/08/24 08:06
Physical Exam
Constitutional: No Acute Distress and Comfortable
Head: Other (Left parotid without induration/erythema)
Cardiovascular: Regular Rate and S1/S2
Gastrointestinal: Non Tender and Non Distended
Neurological: AO x 3
Objective Data
Lab Data
Lab Results
09/08/24 07:22
09/08/24 07:22
Estimated Creat Clear 32 ml/min 09/08/24 07:22
Total Bilirubin 0.7 mg/dl (0.2-1.3) 09/02/24 19:02
AST 29 U/L (14-36) 09/02/24 19:02
ALT 24 U/L (0-35) 09/02/24 19:02
Alkaline Phosphatase 104 U/L (38-126) 09/02/24 19:02
Most recent labs reviewed.
Micro Results:
09/03/24 03:37 MRSA Screen - Final
Nose No Methicillin Resistant Staphylococcus aureus isolated.
09/[address]: Findings suggestive of left-sided parotiditis. No fluid collections. Severe L1 compression fracture, new from 12/03/2023 and age indeterminate.
[2024-09-08 12:04] LABS: Glucose - Point of Care 148 mg/dl (70-99)
[2024-09-08] MEDS: PAXIL 30 MG PO (13:52)
[2024-09-08 15:42] VITALS: BP 146/75
[2024-09-08 16:40] LABS: Glucose - Point of Care 155 mg/dl (70-99)
[2024-09-08 18:31] VITALS: BP 140/78
--- NOTE | 2024-09-09 09:12 | W.HF.CON ---
Heart Failure
- LV Function
Left ventricular function study result: LV Ejection fraction >/= 50%
Ejection Fraction Percentage: 55-60
- ARNI
Patient already on ARNI: No
Heart Failure ARNI Not Indicated: LV Ejection Fraction >/= 40%
- ACEI/ARB
Patient already on ACEI/ARB: No
Heart Failure ACEI/ARB Not Indicated: LV Ejection Fraction > 40%
- Beta Luigi
Patient already on Evidence Based Beta Luigi: No
Heart Failure Evidence Based Beta Luigi Not Indicated: LV Ejection Fraction > 40%
- Mineralocorticord Receptor Antagonist
Patient already on MRA: No
Heart Failure MRA Not Indicated: LV Ejection Fraction > 40%
- SGLT-2 Inhibitor
Patient already on SGLT-2 Inhibitor: No
Heart Failure SGLT-2 Inhibitor Contraindication: Patient Refusal
- NYHA CHF Classification
NYHA CHF Classification Level: Class III - Symptoms w/ min exertion, interferes w/ nml daily activity (COPD/ILD)
- ACC/AHA Stage
ACC/AHA Stage: Stage C: Symptomatic Heart Failure
== END 2024-09-08 18:38 | DRG 154 ==
LOC: 4 WEST ACU 22:16
PROVIDERS: Internal Medicine; Registered Nurse; ADMITTING PHYSICIAN Internal Medicine; ATTENDING PHYSICIAN Family Medicine; CONSULT PHYSICIAN Internal Medicine Infectious Disease; CONSULT PHYSICIAN Otolaryngology; EMERGENCY PHYSICIAN Emergency Medicine; FAMILY PHYSICIAN Internal Medicine; OTHER PHYSICIAN Internal Medicine Cardiovascular Disease
DX: K11.21 Acute sialoadenitis (principal); G93.41 Metabolic encephalopathy; I50.33 Acute on chronic diastolic (congestive) heart failure; I11.0 Hypertensive heart disease with heart failure; Z66 Do not resuscitate; D63.8 Anemia in other chronic diseases classified elsewhere; F41.9 Anxiety disorder, unspecified; K21.9 Gastro-esophageal reflux disease without esophagitis; E78.1 Pure hyperglyceridemia; E16.2 Hypoglycemia, unspecified
CPT/HCPCS: 70450; 70491; 70551; 71260; 74230; 80048; 80053; 80061; 82962; 83735; 83880; 84443; 84484; 85025; 85027; 86003; 87070; 92526; 92610; 92611; 93306; 94640; 94669; 96365; 96375; 97163; 97530; 97535; 99285; Q9967

== ENCOUNTER → 2024-09-19 10:56 | Outpatient (REF) | payer OTHER, MEDICARE, BC, SELFPAY ==
[2024-09-19 11:27] LABS: Hematocrit 32.9 % (37.0-47.0); Hemoglobin 10.9 g/dL (12.0-16.0); Mean Corp Hgb Conc. 33.1 g/dL (33.0-37.0); Mean Corpuscular Volume 82.3 fL (81.0-99.0); Platelet Count 380 10^3/uL (130-400); Red Cell Dist. Width 17.5 % (11.5-14.5)
[2024-09-19 11:41] LABS: ALT (SGPT) 30 U/L (0-35); AST (SGOT) 30 U/L (14-36); Albumin 3.0 g/dl (3.5-5.0); Alkaline Phosphatase 127 U/L (38-126); Blood Urea Nitrogen 53 mg/dl (7-17); Calcium 8.1 mg/dl (8.4-10.2); Carbon Dioxide 31 mmol/L (22-30); Chloride 97 mmol/L (98-107); Glucose 92 mg/dl (70-99); Magnesium 1.8 mg/dl (1.6-2.3); Potassium 4.3 mmol/L (3.5-5.1); Sodium 132 mmol/L (135-145); Total Protein 7.0 g/dl (6.3-8.2); eGFR > 60.00
== END ==
LOC: OLABWHC 10:56
PROVIDERS: ATTENDING PHYSICIAN Family Medicine
DX: J44.0 Chronic obstructive pulmonary disease with (acute) lower respiratory infection (principal); R60.9 Edema, unspecified
CPT/HCPCS: 36415; 80053; 83735; 85027